=== PATIENT | male | born 1975 | race Caucasian/White ===

== ENCOUNTER 2021-08-10 15:00 | Emergency (ER) | payer BC ==
[2021-08-10] MEDS ORDERED: Acetaminophen 500 MG Tab PO ONE (15:46)
[2021-08-10] MEDS ORDERED: Ketorolac 60 MG/2 ML SDV IM ONE (15:46)
[2021-08-10] MEDS ORDERED: Codeine/guaiFENesin 10-100 MG/5 ML Syrup 5 ML Cup PO ONE (15:47)
--- NOTE | 2021-08-10 15:47 | PCM.EKG ---
#1 Interpretation EKG Date: 08/10/21 Time: 15:30 Rhythm: Other (sinus tach) Rate (Beats/Min): 104 ST-T: Normal
--- NOTE | 2021-08-10 15:54 | EDM.PDOC ---
ED HPI GENERAL MEDICAL PROBLEM - General Chief Complaint: Respiratory Problem Stated Complaint: COV POS/ CHEST PAIN AND SOB Time Seen by Provider: 08/10/21 15:18 Source of Information: Reports: Patient History Limitations: Reports: No Limitations - History of Present Illness INITIAL COMMENTS - FREE TEXT/NARRATIVE: HISTORY AND PHYSICAL: History of present illness: Patient is a 46-year-old male who presents emergency room today with concern of known COVID-19 diagnosis since yesterday who presents emergency room today with concern of cough and shortness of breath. Patient states that at times, he begins coughing so hard that he cannot catch his breath. Patient states that he is also struggling to get around his house and get up and down the stairs as he is so short of breath. Patient states he has not taken anything today for his symptoms. Patient states that he started having symptoms 4 days ago and tested positive for it yesterday at the walk-in clinic. Patient denies any health history or any other resuscitative symptom. Patient denies fever, chills, chest pain. Denies headache, neck stiff ness, change in vision, syncope, or near syncope. Denies nausea, vomiting, abdominal pain, diarrhea, constipation, or dysuria. Has not noted any blood in urine or stool. Patient has been eating and drinking appropriately. Review of systems: As per history of present illness and below otherwise all systems reviewed and negative. Past medical history: As per history of present illness and as reviewed below otherwise noncontributory. Surgical history: As per history of present illness and as reviewed below otherwise noncontributory. Social history: See social history for further information Family history: As per history of present illness and as reviewed below otherwise noncontributory. Physical exam: General: Patient is alert, oriented, and in no acute distress. Patient sitting comfortably on exam table. Patient is mildly tachycardic 107 on exam, otherwise vitally stable and reviewed by me. Patient is 94% on room air and breathing comfortably. HEENT: Atraumatic, normocephalic, pupils equal and reactive bilaterally, negative for conjunctival pallor or scleral icterus, mucous membranes moist, throat clear, neck supple, nontender, trachea midline. No drooling or trismus noted. No meningeal signs. No hot potato voice noted. Lungs: Patient does have a spasmatic dry cough on exam. Otherwise, clear to auscultation, breath sounds equal bilaterally, chest nontender. Patient speaking clearly without breathlessness, no wheezing or stridor, no accessory muscle use or respiratory distress. Heart: S1S2, regular rate and rhythm without overt murmur Abdomen: Soft, nondistended, nontender. Negative for masses or hepatosplenomegaly. Negative for costovertebral tenderness. Pelvis: Stable nontender. Genitourinary: Deferred. Rectal: Deferred. Skin: Intact, warm, dry. No lesions or rashes noted. Extremities: Atraumatic, negative for cords or calf pain. Neurovascular unremarkable. Neuro: Awake, alert, oriented. Cranial nerves II through XII unremarkable. Cerebellum unremarkable. Motor and sensory unremarkable throughout. Exam nonfocal. Medical Decision Making: Patient is an otherwise healthy 46-year-old male with known COVID-19 diagnosis since yesterday who presents emergency room today with concern of worsening cough and shortness of breath. Upon arrival to the ED, patient is mildly tachycardic 107's on exam, otherwise is 94% on room air and breathing comfortably on exam. He does have a spasmatic dry cough on exam, otherwise ex amination of the lungs is unremarkable and remainder of physical exam unremarkable. At this time, will obtain cardiac evaluation given shortness of breath, 1 view chest x-ray, and D-dimer and provide therapeutics and reassess patient. See Dr. Epperson's dictation for specific EKG interpretation. Otherwise, sinus tachycardia rhythm with a rate of 104 without STEMI. CBC does show thrombocytopenia with platelets of 86, likely secondary to COVID- 19 viral infection. Otherwise, mild derangements of CBC are unremarkable. CMP does show mild transaminitis with AST of 75 and ALT 66, presumed from possible COVID-19 viral infection, otherwise mild regions of CMP unremarkable. Troponin negative. COVID-19 is positive. Chest x-ray shows patchy bilateral pulmonary opacities, more pronounced on the left, compatible with COVID-19 infiltrate. Upon reevaluation of patient, he remains vitally stable and approximately 94 to 95% on room air and breathing comfortably. He does have improvement of his co ugh with therapeutics today in the emergency room. Given that patient is already showing moderate an infection of COVID-19 on his chest x-ray, BMI of 30.1, unvaccinated and male, patient does meet outpatient monoclonal antibody infusion requirements. This prescription form was filled out and faxed over. Strict return precautions thoroughly discussed with patient. Discussed importance for follow-up with a primary care provider following COVID-19 quarantine restrictions. Voices understanding and is agreeable to plan of care. Denies any further questions or concerns at this time. Diagnostics: EKG, CBC, CMP, lipase, troponin, D-dimer, 1 view chest x-ray, COVID Therapeutics: Nebulized lidocaine, Robitussin-AC, Toradol, Tylenol Prescription: Outpatient monoclonal ab infusion RX Impression: COVID-19 virus infection Plan: 1. Your COVID-19 screening is positive. That means you do have the coronavirus and are considered contagious. Your vital signs and oxygen saturation are well enough that you were able to monitor your symptoms at home. Continue to monitor for trouble breathing, new confusion or inability to arouse, bluish lips or face or any of the other symptoms we discussed -if this occurs please return to the emergency room.Continue to monitor your health at home for worsening symptoms so that you can be taken care of and treated quickly if needed. 2. Please self quarantine until 10 days have passed since your symptoms began AND you are fever free (<100.4 degrees fahrenheit) for 24 hours without the use of fever-reducing medications AND symptoms are improving. You should restrict activities outside of your home, except for getting medical care. Do not go to work, school, or public areas. Avoid using public transportation, ride-sharing, or taxis. Inform any persons that you have been in contact with since you started becoming symptomatic that you have tested positive; they should be made aware and take the appropriate steps as needed. 3. You may alternate Tylenol and ibuprofen as needed for pain and fever management. 4. The [facility] health department will be calling you and following up with you. The [facility] COVID 19 Hotline phone number , They are open Monday - Monday 7am - 7pm. Follow up with your primary care provider for re-evaluation and re-testing after quarantine and discuss when you should be seen. 6. For more specific guidelines regarding isolation/quarantine please visit this website. https://www.health[place]/sites/www/files/documents/Files/ELANA/coronavirus/Factsh eet_for_People_With_COVID-19.pdf Definitive disposition and diagnosis as appropriate pending reevaluation and review of above. Bilateral Chest Pain Score (Numeric/FACES): 8 - Related Data Allergies Allergy/AdvReac Type Severity Reaction Status Date / Time Penicillins Allergy Hives Verified 08/10/21 15:13 Home Meds: Home Meds Albuterol Sulfate [Albuterol Sulfate Hfa] 1 dose PO DAILY 08/10/21 [History] Benzonatate 100 mg PO DAILY 08/10/21 [History] Codeine Phosphate/Guaifenesin [Guaiatussin AC Liquid] 5 ml PO DAILY 08/10/21 [History] predniSONE [Prednisone] 20 mg PO DAILY 08/10/21 [History] Past Medical History - Infectious Disease History Infectious Disease History: Reports: Novel Coronavirus - Past Surgical History Other Musculoskeletal Surgeries/Procedures:: Tore bicep tendon in right arm. Head and neck surgery. Social & Family History - Tobacco Use Tobacco Use Status *Q: Never Tobacco User - Recreational Drug Use Recreational Drug Use: No ED ROS GENERAL - Review of Systems Review Of Systems: Comprehensive ROS is negative, except as noted in HPI. ED EXAM, GENERAL - Physical Exam Exam: See Below (see dictation) Course - Vital Signs Last Recorded V/S: Last Vital Signs Temp 98.9 F 08/10/21 16:54 Pulse 102 H 08/10/21 16:54 Resp 20 08/10/21 16:54 BP 111/71 08/10/21 16:54 Pulse Ox 92 L 08/10/21 16:54 - Orders/Labs/Meds Labs: Laboratory Tests 08/10/21 08/10/21 08/10/21 Range/Units 15:35 15:35 15:35 WBC 4.97 (4.0-11.0) K/uL RBC 4.73 (4.50-5.90) M/uL Hgb 14.0 (13.0-17.0) g/dL Hct 39.2 (38.0-50.0) % MCV 82.9 (80.0-98.0) fL MCH 29.6 (27.0-32.0) pg MCHC 35.7 (31.0-37.0) g/dL RDW Std Deviation 39.1 (28.0-62.0) fl RDW Coeff of Mason 13 (11.0-15.0) % Plt Count 86 L (150-400) K/uL MPV 9.00 (7.40-12.00) fL Neut % (Auto) 79.9 (48.0-80.0) % Lymph % (Auto) 15.9 L (16.0-40.0) % Day % (Auto) 4.2 (0.0-15.0) % Eos % (Auto) 0.0 (0.0-7.0) % Baso % (Auto) 0.0 (0.0-1.5) % Neut # (Auto) 4.0 (1.4-5.7) K/uL Lymph # (Auto) 0.8 (0.6-2.4) K/uL Day # (Auto) 0.2 (0.0-0.8) K/uL Eos # (Auto) 0.0 (0.0-0.7) K/uL Baso # (Auto) 0.0 (0.0-0.1) K/uL Nucleated RBC % 0.0 /100WBC Nucleated RBCs # 0 K/uL D-Dimer, Quantitative 0.35 (0.0-0.50) mg/L FEU Sodium 136 (136-148) mmol/L Potassium 3.7 (3.5-5.1) mmol/L Chloride 99 (98-107) mmol/L Carbon Dioxide 28.4 (21.0-32.0) mmol/L BUN 11 (7.0-18.0) mg/dL Creatinine 1.1 (0.8-1.3) mg/dL Est Cr Clr Drug Dosing 87.56 mL/min Estimated GFR (MDRD) > 60.0 ml/min Glucose 147 H (74-106) mg/dL Calcium 8.2 L (8.5-10.1) mg/dL Total Bilirubin 0.5 (0.2-1.0) mg/dL AST 75 H (15-37) IU/L ALT 66 H (14-63) IU/L Alkaline Phosphatase 68 (46-116) U/L Troponin I < 0.050 (0.000-0.056) ng/mL Total Protein 7.6 (6.4-8.2) g/dL Albumin 3.3 L (3.4-5.0) g/dL Globulin 4.3 H (2.6-4.0) g/dL Albumin/Globulin Ratio 0.8 L (0.9-1.6) Lipase 79 (73-393) U/L SARS-CoV-2 RNA (MARTÍNEZ) (NEGATIVE) 08/10/21 Range/Units 16:15 WBC (4.0-11.0) K/uL RBC (4.50-5.90) M/uL Hgb (13.0-17.0) g/dL Hct (38.0-50.0) % MCV (80.0-98.0) fL MCH (27.0-32.0) pg MCHC (31.0-37.0) g/dL RDW Std Deviation (28.0-62.0) fl RDW Coeff of Mason (11.0-15.0) % Plt Count (150-400) K/uL MPV (7.40-12.00) fL Neut % (Auto) (48.0-80.0) % Lymph % (Auto) (16.0-40.0) % Day % (Auto) (0.0-15.0) % Eos % (Auto) (0.0-7.0) % Baso % (Auto) (0.0-1.5) % Neut # (Auto) (1.4-5.7) K/uL Lymph # (Auto) (0.6-2.4) K/uL Day # (Auto) (0.0-0.8) K/uL Eos # (Auto) (0.0-0.7) K/uL Baso # (Auto) (0.0-0.1) K/uL Nucleated RBC % /100WBC Nucleated RBCs # K/uL D-Dimer, Quantitative (0.0-0.50) mg/L FEU Sodium (136-148) mmol/L Potassium (3.5-5.1) mmol/L Chloride (98-107) mmol/L Carbon Dioxide (21.0-32.0) mmol/L BUN (7.0-18.0) mg/dL Creatinine (0.8-1.3) mg/dL Est Cr Clr Drug Dosing mL/min Estimated GFR (MDRD) ml/min Glucose (74-106) mg/dL Calcium (8.5-10.1) mg/dL Total Bilirubin (0.2-1.0) mg/dL AST (15-37) IU/L ALT (14-63) IU/L Alkaline Phosphatase (46-116) U/L Troponin I (0.000-0.056) ng/mL Total Protein (6.4-8.2) g/dL Albumin (3.4-5.0) g/dL Globulin (2.6-4.0) g/dL Albumin/Globulin Ratio (0.9-1.6) Lipase (73-393) U/L SARS-CoV-2 RNA (MARTÍNEZ) POSITIVE H (NEGATIVE) Meds: Medications Discontinued Medications Generic Name Dose Route Start Last Admin Trade Name Azamq PRN Reason Stop Dose Admin Acetaminophen 1,000 mg 08/10/21 15:46 08/10/21 16:29 Acetaminophen 500 Mg Tab PO 08/10/21 15:47 1,000 mg ONETIME ONE Administration Guaifenesin/Codeine Phosphate 5 ml 08/10/21 15:47 08/10/21 16:29 Codeine/Guaifenesin 10-100 Mg/5 Ml Syrup 5 Ml Cup PO 08/10/21 15:48 5 ml ONETIME ONE Administration Ketorolac Tromethamine 60 mg 08/10/21 15:46 08/10/21 16:32 Ketorolac 60 Mg/2 Ml Sdv IM 08/10/21 15:47 60 mg ONETIME ONE Administration Lidocaine HCl 5 ml 08/10/21 15:46 08/10/21 16:29 Lidocaine 1% 5 Ml Sdv .XX 08/10/21 15:47 5 ml ONETIME ONE Administration Departure - Departure Time of Disposition: 21:23 Disposition: Home, Self-Care 01 Clinical Impression: COVID-19 virus infection - Discharge Information Instructions: COVID-19 Frequently Asked Questions, 10 Things You Can Do to Manage Your COVID-19 Symptoms at Home - [facility] (04/09/2021) Referrals: PCP,None [Primary Care Provider] - Forms: ED Department Discharge Additional Instructions: The following information is given to patients seen in the emergency department who are being discharged to home. This information is to outline your options for follow-up care. We provide all patients seen in our emergency department with a follow-up referral. The need for follow-up, as well as the timing and circumstances, are variable depending upon the specifics of your emergency department visit. If you don't have a primary care physician on staff, we will provide you with a referral. We always advise you to contact your personal physician following an emergency department visit to inform them of the circumstance of the visit and for follow-up with them and/or the need for any referrals to a consulting specialist. The emergency department will also refer you to a specialist when appropriate. This referral assures that you have the opportunity for follow-up care with a specialist. All of these measure are taken in an effort to provide you with optimal care, which includes your follow-up. Under all circumstances we always encourage you to contact your private physician who remains a resource for coordinating your care. When calling for follow-up care, please make the office aware that this follow-up is from your recent emergency room visit. If for any reason you are refused follow-up, please contact the [facility] Emergency Department at and asked to speak to the emergency department charge nurse. [facility] [address] [place] [address] [place] [address] 1. Your COVID-19 screening is positive. That means you do have the coronavirus and are considered contagious. Your vital signs and oxygen saturation are well enough that you were able to monitor your symptoms at home. Continue to monitor for trouble breathing, new confusion or inability to arouse, bluish lips or face or any of the other symptoms we discussed -if this occurs please return to the emergency room.Continue to monitor your health at home for worsening symptoms so that you can be taken care of and treated quickly if needed. 2. Please self quarantine until 10 days have passed since your symptoms began AND you are fever free (<100.4 degrees fahrenheit) for 24 hours without the use of fever-reducing medications AND symptoms are improving. You should restrict activities outside of your home, except for getting medical care. Do not go to work, school, or public areas. Avoid using public transportation, ride-sharing, or taxis. Inform any persons that you have been in contact with since you started becoming symptomatic that you have tested positive; they should be made aware and take the appropriate steps as needed. 3. You may alternate Tylenol and ibuprofen as needed for pain and fever management. 4. The [facility] department will be calling you and following up with you. The [facility] COVID 19 Hotline phone number , They are open Monday - Monday 7am - 7pm. Follow up with your primary care provider for re-evaluation and re-testing after quarantine and discuss when you should be seen. 6. For more specific guidelines regarding isolation/quarantine please visit this website. https://www.[place]/sites/www/files/documents/Files/ELANA/coronavirus/Factsh eet_for_People_With_COVID-19.pdf Sepsis Event Note (ED) - Evaluation Sepsis Screening Result: No Definite Risk - Focused Exam Vital Signs: Vital Signs Temp Pulse Resp BP Pulse Ox 08/10/21 16:54 98.9 F 102 H 20 111/71 92 L 08/10/21 15:16 99.7 F 107 H 16 118/73 91 L
[2021-08-10 16:06] LABS: BLOOD UREA NITROGEN,BUN 11 mg/dL (7.0-18.0); CARBON DIOXIDE,CO2 28.4 mmol/L (21.0-32.0); CHLORIDE,CL 99 mmol/L (98-107); GLUCOSE RANDOM 147 mg/dL (74-106); LIPASE 79 U/L (73-393); POTASSIUM,K 3.7 mmol/L (3.5-5.1); SODIUM,NA 136 mmol/L (136-148)
--- NOTE | 2021-08-10 16:28 | CR ---
INDICATION: Shortness of breath, cough positive TECHNIQUE: Portable upright AP view of the chest COMPARISON: None FINDINGS: Suboptimal inspiration. Patchy bilateral pulmonary opacities, more pronounced on the left. No appreciable pleural effusion or pneumothorax. Nonenlarged cardiac silhouette. No significant thoracic abnormality demonstrated. IMPRESSION: Patchy bilateral pulmonary opacities, more pronounced on the left, compatible with COVID infiltrates. Dictated by Tommy Witt MD @ 08/10/2021 4:27:45 PM (Electronically Signed)
== END 2021-08-10 17:12 | disposition home or self-care (01) ==
LOC: MW.ED 15:00
DX: U07.1 COVID-19 (principal); Z88.0 Allergy status to penicillin
CPT/HCPCS: 36415; 71045; 80053; 83690; 84484; 85025; 85379; 87635; 93005; 96372; 99285; A9270; J1885; U0002

== ENCOUNTER 2021-08-11 12:48 | Inpatient (IN) | payer BC ==
[2021-08-11] MEDS ORDERED: Albuterol/Ipratropium 3.0-0.5 MG/3 ML Neb Soln NEB ONE (13:26)
[2021-08-11] MEDS ORDERED: Sodium Chloride 0.9% 1,000 ML IV ONE (13:33)
--- NOTE | 2021-08-11 13:33 | EDM.PDOC ---
ED HPI GENERAL MEDICAL PROBLEM - General Chief Complaint: Respiratory Problem Stated Complaint: COVID LOW O2 Time Seen by Provider: 08/11/21 13:02 Source of Information: Reports: Patient History Limitations: Reports: No Limitations - History of Present Illness INITIAL COMMENTS - FREE TEXT/NARRATIVE: Patient is a 46-year-old male who presents today for worsening shortness of chrissie ath. Patient tested positive for Covid on Monday and states his symptoms started to get worse. Home with oximeter of 80%.When in the room with the patient's oxygen saturation 93 to 95%. Patient denies any fever chills cough he still tolerating p.o. but has been feeling tired and weak denies any leg swelling no other complaints. chest Pain Score (Numeric/FACES): 8 - Related Data Allergies Allergy/AdvReac Type Severity Reaction Status Date / Time Penicillins Allergy Hives Verified 08/11/21 13:07 Home Meds: Home Meds Albuterol Sulfate [Albuterol Sulfate Hfa] 1 dose PO DAILY 08/10/21 [History] Benzonatate 100 mg PO DAILY 08/10/21 [History] Codeine Phosphate/Guaifenesin [Guaiatussin AC Liquid] 5 ml PO DAILY 08/10/21 [History] predniSONE [Prednisone] 20 mg PO DAILY 08/10/21 [History] Past Medical History HEENT History: Reports: None Cardiovascular History: Reports: None Respiratory History: Reports: None Gastrointestinal History: Reports: None Genitourinary History: Reports: None Musculoskeletal History: Reports: None Neurological History: Reports: None Psychiatric History: Reports: None Endocrine/Metabolic History: Reports: None Hematologic History: Reports: None Immunologic History: Reports: None Oncologic (Cancer) History: Reports: None Dermatologic History: Reports: None - Infectious Disease History Infectious Disease History: Reports: Novel Coronavirus - Past Surgical History Head Surgeries/Procedures: Reports: None HEENT Surgical History: Reports: None Cardiovascular Surgical History: Reports: None Respiratory Surgical History: Reports: None GI Surgical History: Reports: None Male Surgical History: Reports: None Endocrine Surgical History: Reports: None Neurological Surgical History: Reports: None Musculoskeletal Surgical History: Reports: Other (See Below) Other Musculoskeletal Surgeries/Procedures:: Tore bicep tendon in right arm. Head and neck surgery. Oncologic Surgical History: Reports: None Dermatological Surgical History: Reports: None Social & Family History - Family History Family Medical History: No Pertinent Family History - Tobacco Use Tobacco Use Status *Q: Never Tobacco User Second Hand Smoke Exposure: No - Caffeine Use Caffeine Use: Reports: None - Recreational Drug Use Recreational Drug Use: No ED ROS GENERAL - Review of Systems Review Of Systems: See Below Constitutional: Reports: No Symptoms HEENT: Reports: No Symptoms Respiratory: Reports: Cough Cardiovascular: Reports: No Symptoms Endocrine: Reports: No Symptoms GI/Abdominal: Reports: No Symptoms : Reports: No Symptoms Musculoskeletal: Reports: No Symptoms Skin: Reports: No Symptoms Neurological: Reports: No Symptoms Psychiatric: Reports: No Symptoms Hematologic/Lymphatic: Reports: No Symptoms Immunologic: Reports: No Symptoms ED EXAM, GENERAL - Physical Exam Exam: See Below Exam Limited By: No Limitations General Appearance: Alert, WD/WN, No Apparent Distress Eye Exam: Bilateral Eye: EOMI, PERRL Head: Atraumatic, Normocephalic Neck: Normal Inspection, Supple, Non-Tender Respiratory/Chest: No Respiratory Distress, Lungs Clear, Normal Breath Sounds Cardiovascular: Normal Peripheral Pulses, Regular Rate, Rhythm GI/Abdominal: Normal Bowel Sounds, Soft, Non-Tender Extremities: Normal Inspection, Normal Range of Motion Neurological: Alert, Oriented, Normal Cognition, Normal Gait #1 Interpretation EKG Date: 08/11/21 Time: 16:37 Rhythm: Other (sinus tach) Rate (Beats/Min): 101 ST-T: Normal Course - Vital Signs Last Recorded V/S: Last Vital Signs Temp 100.3 F 08/11/21 13:08 Pulse 102 H 08/11/21 15:23 Resp 20 08/11/21 15:23 BP 139/83 08/11/21 15:23 Pulse Ox 91 L 08/11/21 15:23 - Orders/Labs/Meds Orders: Active Orders 24 hr Category Date Time Status Patient Status [ADT] Routine ADT 08/11/21 16:39 Active RT Aerosol Therapy [RC] ASDIRECTED Care 08/11/21 13:26 Active Codeine/Promethazine HCl [Phenergan with Codeine] Med 08/11/21 13:30 Active 5 ml PO Q6HR Remdesivir 200 mg Med 08/11/21 17:00 Active Sodium Chloride 0.9% [Normal Saline] 250 ml IV ONETIME Medication Orders Remdesivir 200 mg/ Sodium (Chloride) 250 mls @ 250 mls/hr IV ONETIME ONE Stop: 08/11/21 17:59 Promethazine HCl/Codeine (Codeine/Promethazine 10-6.25 Mg/5 Ml Syrup 5 Ml Ud Syringe) 5 ml PO Q6HR IAN Last Admin: 08/11/21 14:00 Dose: 5 ml Documented by: VANESSA Labs: Laboratory Tests 08/11/21 08/11/21 Range/Units 13:11 13:11 WBC 5.60 (4.0-11.0) K/uL RBC 4.48 L (4.50-5.90) M/uL Hgb 13.5 (13.0-17.0) g/dL Hct 37.6 L (38.0-50.0) % MCV 83.9 (80.0-98.0) fL MCH 30.1 (27.0-32.0) pg MCHC 35.9 (31.0-37.0) g/dL RDW Std Deviation 39.5 (28.0-62.0) fl RDW Coeff of Mason 13 (11.0-15.0) % Plt Count 105 L (150-400) K/uL MPV 8.90 (7.40-12.00) fL Neut % (Auto) 83.2 H (48.0-80.0) % Lymph % (Auto) 13.6 L (16.0-40.0) % [place] % (Auto) 3.2 (0.0-15.0) % Eos % (Auto) 0.0 (0.0-7.0) % Baso % (Auto) 0.0 (0.0-1.5) % Neut # (Auto) 4.7 (1.4-5.7) K/uL Lymph # (Auto) 0.8 (0.6-2.4) K/uL [place] # (Auto) 0.2 (0.0-0.8) K/uL Eos # (Auto) 0.0 (0.0-0.7) K/uL Baso # (Auto) 0.0 (0.0-0.1) K/uL Nucleated RBC % 0.0 /100WBC Nucleated RBCs # 0 K/uL Sodium 131 L (136-148) mmol/L Potassium 3.3 L (3.5-5.1) mmol/L Chloride 96 L (98-107) mmol/L Carbon Dioxide 27.0 (21.0-32.0) mmol/L BUN 15 (7.0-18.0) mg/dL Creatinine 1.4 H (0.8-1.3) mg/dL Est Cr Clr Drug Dosing 68.80 mL/min Estimated GFR (MDRD) 54.8 ml/min Glucose 141 H (74-106) mg/dL Calcium 8.3 L (8.5-10.1) mg/dL Total Bilirubin 0.5 (0.2-1.0) mg/dL AST 106 H (15-37) IU/L ALT 81 H (14-63) IU/L Alkaline Phosphatase 65 (46-116) U/L Troponin I < 0.050 (0.000-0.056) ng/mL Total Protein 7.2 (6.4-8.2) g/dL Albumin 3.0 L (3.4-5.0) g/dL Globulin 4.2 H (2.6-4.0) g/dL Albumin/Globulin Ratio 0.7 L (0.9-1.6) Meds: Medications Generic Name Dose Route Start Last Admin Trade Name Freq PRN Reason Stop Dose Admin Remdesivir 200 mg/ Sodium 250 mls @ 250 mls/hr 08/11/21 17:00 Chloride IV 08/11/21 17:59 ONETIME ONE Promethazine HCl/Codeine 5 ml 08/11/21 13:30 08/11/21 14:00 Codeine/Promethazine 10-6.25 Mg/5 Ml Syrup 5 Ml Ud Syringe PO 5 ml Q6HR IAN Administration Discontinued Medications Generic Name Dose Route Start Last Admin Trade Name Freq PRN Reason Stop Dose Admin Albuterol/Ipratropium 3 ml 08/11/21 13:26 08/11/21 14:00 Albuterol/Ipratropium 3.0-0.5 Mg/3 Ml Neb Soln NEB 08/11/21 13:27 3 ml ONETIME ONE Administration Dexamethasone 10 mg 08/11/21 16:20 08/11/21 16:34 Dexamethasone 10 Mg/Ml Sdv IVPUSH 08/11/21 16:21 10 mg ONETIME ONE Administration Sodium Chloride 1,000 mls @ 1,000 mls/hr 08/11/21 13:33 08/11/21 13:59 Normal Saline IV 08/11/21 14:32 1,000 mls/hr .Bolus ONE Administration Remdesivir 200 mg/ Sodium 250 mls @ 250 mls/hr 08/11/21 16:38 Chloride IV 08/11/21 16:39 ONETIME ONE - Re-Assessments/Exams Free Text/Narrative Re-Assessment/Exam: 08/11/21 16:39 And oxygen level room air dropped down to 83%. We placed him on 2 L to see if he can go home on home O2 still hung around 8990% we put him up to 4 L he is now at accountable 93-94%. Patient really wants to the infusion clinic was considering leaving. We had a extensive conversation with patient about that he would not qualify for the fusion clinically at the knee oxygen. He is now willing to stay we will start the patient on the days of year he was already receiving prednisone from the clinic. Departure - Departure Time of Disposition: 16:41 Disposition: Admitted As Inpatient 67 Condition: Good Clinical Impression: Hypoxia, COVID, Congestive heart failure - Discharge Information *PRESCRIPTION DRUG MONITORING PROGRAM REVIEWED*: Not Applicable *COPY OF PRESCRIPTION DRUG MONITORING REPORT IN PATIENT RACHEL: Not Applicable Referrals: PCP,None [Primary Care Provider] - Forms: ED Department Discharge Critical Care Note - Critical Care Note Total Time (mins): 45 Comments: Critical Care Procedure Note Authorized and Performed by: MD Name Total critical care time: Approximately 36 minutes Due to a high probability of clinically significant, life threatening deterioration, the patient required my highest level of preparedness to interven e emergently and I personally spent this critical care time directly and personally managing the patient. This critical care time included obtaining a history; examining the patient; pulse oximetry; ordering and review of studies; arranging urgent treatment with development of a management plan; evaluation of patient's response to treatment; frequent reassessment; and, discussions with other providers. This critical care time was performed to assess and manage the high probability of imminent, life-threatening deterioration that could result in multi-organ failure. It was exclusive of separately billable procedures and treating other patients and teaching time. Please see MDM section and the rest of the note for further information on patient assessment and treatment. Sepsis Event Note (ED) - Evaluation Sepsis Screening Result: No Definite Risk - Focused Exam Vital Signs: Vital Signs Temp Temp Pulse Resp BP Pulse Ox 08/11/21 15:23 102 H 20 139/83 91 L 08/11/21 13:08 100.3 F 08/11/21 13:04 99.1 F 103 H 18 134/82 88 L - My Orders Last 24 Hours: My Active Orders 08/11/21 13:26 RT Aerosol Therapy [RC] ASDIRECTED 08/11/21 13:30 Codeine/Promethazine HCl [Phenergan with Codeine] 5 ml PO Q6HR 08/11/21 16:39 Patient Status [ADT] Routine 08/11/21 17:00 Remdesivir 200 mg Sodium Chloride 0.9% [Normal Saline] 250 ml IV ONETIME - Assessment/Plan Last 24 Hours: My Active Orders 08/11/21 13:26 RT Aerosol Therapy [RC] ASDIRECTED 08/11/21 13:30 Codeine/Promethazine HCl [Phenergan with Codeine] 5 ml PO Q6HR 08/11/21 16:39 Patient Status [ADT] Routine 08/11/21 17:00 Remdesivir 200 mg Sodium Chloride 0.9% [Normal Saline] 250 ml IV ONETIME Plan: Patient is a 46-year-old male positive Covid a few days ago presents today for worsening shortness of breath. Patient while in room was satting 93% on room air and looks well patient may complains of his chronic cough which will treat cough provide fluids and reassess.
[2021-08-11 13:54] LABS: BLOOD UREA NITROGEN,BUN 15 mg/dL (7.0-18.0); CHLORIDE,CL 96 mmol/L (98-107); GLUCOSE RANDOM 141 mg/dL (74-106); POTASSIUM,K 3.3 mmol/L (3.5-5.1); SODIUM,NA 131 mmol/L (136-148)
[2021-08-11] MEDS: Codeine/Promethazine 10-6.25 MG/5 ML Syrup 5 ML UD Syringe PO SCH ×2 (14:00→18:53)
[2021-08-11] MEDS ORDERED: Dexamethasone 10 MG/ML SDV IVPUSH ONE (16:20)
[2021-08-11] MEDS ORDERED: REMDESIVIR 200 MG in Sodium Chloride 0.9% 250 ML IV ONE ×2 (16:38→17:00)
[2021-08-11] MEDS ORDERED: Potassium Chloride 20 MEQ Tab.ER PO ONE (18:56)
--- NOTE | 2021-08-11 19:44 | PCM.HP.2 ---
H&P History of Present Illness - General Date of Service: 08/11/21 Admit Problem/Dx: Admission Diagnosis/Problem Admission Diagnosis/Problem Hypoxia - History of Present Illness Initial Comments - Free Text/Narative: 46 yo male who presents with one week history of cough. PAtient denies any fevers, chills, chest pain, or shortness of breath. He was requiring 5 L NC to keep sats above 90% chest Pain Score (Numeric/FACES): 8 - Related Data Allergies/Adverse Reactions: Allergies Allergy/AdvReac Type Severity Reaction Status Date / Time Penicillins Allergy Hives Verified 08/11/21 13:07 Home Medications: Home Meds Albuterol Sulfate [Albuterol Sulfate Hfa] 1 dose PO DAILY 08/10/21 [History] Benzonatate 100 mg PO DAILY 08/10/21 [History] Codeine Phosphate/Guaifenesin [Guaiatussin AC Liquid] 5 ml PO DAILY 08/10/21 [History] predniSONE [Prednisone] 20 mg PO DAILY 08/10/21 [History] Past Medical History HEENT History: Reports: None Cardiovascular History: Reports: None Respiratory History: Reports: None Gastrointestinal History: Reports: None Genitourinary History: Reports: None Musculoskeletal History: Reports: None Neurological History: Reports: None Psychiatric History: Reports: None Endocrine/Metabolic History: Reports: None Hematologic History: Reports: None Immunologic History: Reports: None Oncologic (Cancer) History: Reports: None Dermatologic History: Reports: None - Infectious Disease History Infectious Disease History: Reports: Novel Coronavirus - Past Surgical History Head Surgeries/Procedures: Reports: None HEENT Surgical History: Reports: None Cardiovascular Surgical History: Reports: None Respiratory Surgical History: Reports: None GI Surgical History: Reports: None Male Surgical History: Reports: None Endocrine Surgical History: Reports: None Neurological Surgical History: Reports: None Musculoskeletal Surgical History: Reports: Other (See Below) Other Musculoskeletal Surgeries/Procedures:: Tore bicep tendon in right arm. Head and neck surgery. Oncologic Surgical History: Reports: None Dermatological Surgical History: Reports: None Social & Family History - Family History Family Medical History: No Pertinent Family History - Tobacco Use Tobacco Use Status *Q: Never Tobacco User Second Hand Smoke Exposure: No - Caffeine Use Caffeine Use: Reports: None - Recreational Drug Use Recreational Drug Use: No H&P Review of Systems - Review of Systems: Review Of Systems: Comprehensive ROS is negative, except as noted in HPI. Exam - Exam Exam: See Below - Vital Signs Vital Signs: Last Vital Signs Temp 36.4 C 08/11/21 18:35 Pulse 94 08/11/21 18:35 Resp 22 H 08/11/21 18:35 BP 111/57 L 08/11/21 18:35 Pulse Ox 90 L 08/11/21 18:35 Weight: 95.254 kg - Exam General: Alert, Oriented HEENT: Mucosa Moist & [place] Neck: Supple Lungs: Clear to Auscultation, Normal Respiratory Effort Cardiovascular: Regular Rate, Regular Rhythm GI/Abdominal Exam: Normal Bowel Sounds, Soft, Non-Tender Extremities: Non-Tender, No Pedal Edema Skin: Warm, Dry, Intact Neurological: No: Focal Deficit - Patient Data Lab Results Last 24 hrs: Laboratory Results - last 24 hr 08/11/21 08/11/21 Range/Units 13:11 13:11 WBC 5.60 (4.0-11.0) K/uL RBC 4.48 L (4.50-5.90) M/uL Hgb 13.5 (13.0-17.0) g/dL Hct 37.6 L (38.0-50.0) % MCV 83.9 (80.0-98.0) fL MCH 30.1 (27.0-32.0) pg MCHC 35.9 (31.0-37.0) g/dL RDW Std Deviation 39.5 (28.0-62.0) fl RDW Coeff of Mason 13 (11.0-15.0) % Plt Count 105 L (150-400) K/uL MPV 8.90 (7.40-12.00) fL Neut % (Auto) 83.2 H (48.0-80.0) % Lymph % (Auto) 13.6 L (16.0-40.0) % [place] % (Auto) 3.2 (0.0-15.0) % Eos % (Auto) 0.0 (0.0-7.0) % Baso % (Auto) 0.0 (0.0-1.5) % Neut # (Auto) 4.7 (1.4-5.7) K/uL Lymph # (Auto) 0.8 (0.6-2.4) K/uL [place] # (Auto) 0.2 (0.0-0.8) K/uL Eos # (Auto) 0.0 (0.0-0.7) K/uL Baso # (Auto) 0.0 (0.0-0.1) K/uL Nucleated RBC % 0.0 /100WBC Nucleated RBCs # 0 K/uL Sodium 131 L (136-148) mmol/L Potassium 3.3 L (3.5-5.1) mmol/L Chloride 96 L (98-107) mmol/L Carbon Dioxide 27.0 (21.0-32.0) mmol/L BUN 15 (7.0-18.0) mg/dL Creatinine 1.4 H (0.8-1.3) mg/dL Est Cr Clr Drug Dosing 68.80 mL/min Estimated GFR (MDRD) 54.8 ml/min Glucose 141 H (74-106) mg/dL Calcium 8.3 L (8.5-10.1) mg/dL Total Bilirubin 0.5 (0.2-1.0) mg/dL AST 106 H (15-37) IU/L ALT 81 H (14-63) IU/L Alkaline Phosphatase 65 (46-116) U/L Troponin I < 0.050 (0.000-0.056) ng/mL Total Protein 7.2 (6.4-8.2) g/dL Albumin 3.0 L (3.4-5.0) g/dL Globulin 4.2 H (2.6-4.0) g/dL Albumin/Globulin Ratio 0.7 L (0.9-1.6) Result Diagrams: 08/11/21 13:11 08/11/21 13:11 Sepsis Event Note - Evaluation Sepsis Screening Result: No Definite Risk - Focused Exam Vital Signs: Vital Signs Temp Temp Pulse Resp BP Pulse Ox 08/11/21 18:35 36.4 C 94 22 H 111/57 L 90 L 08/11/21 18:12 104 H 19 128/76 93 L 08/11/21 15:23 102 H 20 139/83 91 L 08/11/21 13:08 37.9 C 08/11/21 13:04 37.3 C 103 H 18 134/82 88 L - Problem List (1) COVID SNOMED Code(s): 324033790 ICD Code: U07.1 - COVID-19 Status: Acute Current Visit: Yes (2) Hypoxia SNOMED Code(s): 675683441 ICD Code: R09.02 - HYPOXEMIA Status: Acute Current Visit: Yes Problem List Initiated/Reviewed/Updated: Yes Orders Last 24hrs: Active Orders 24 hr Category Date Time Status Patient Status [ADT] Routine ADT 08/11/21 16:39 Active RT Post Treatment Assessment [RC] Click to Edit Care 08/11/21 18:59 Active RT Pre-Treatment Assessment [RC] Click to Edit Care 08/11/21 18:59 Active Albuterol/Ipratropium [Combivent Respimat] Med 08/11/21 18:59 Active 0 gm INH Q4H PRN Benzonatate [Tessalon Perles] Med 08/11/21 19:31 Ordered 100 mg PO Q6H PRN Codeine/Promethazine HCl [Phenergan with Codeine] Med 08/11/21 13:30 Active 5 ml PO Q6HR Enoxaparin [Lovenox] Med 08/11/21 20:00 Active 40 mg SUBCUT Q24H Melatonin Med 08/11/21 19:31 Ordered 6 mg PO BEDTIME PRN Remdesivir 100 mg Med 08/12/21 17:00 Active Sodium Chloride 0.9% [Normal Saline AdvBag] 100 ml IV Q24H dexAMETHasone Med 08/12/21 16:00 Active 6 mg PO Q24H Medication Orders Albuterol/Ipratropium (Albuterol/Ipratropium 4 Gm Inhalation [place]) 0 gm INH Q4H PRN PRN Reason: Dyspnea Benzonatate (Benzonatate 100 Mg Cap) 100 mg PO Q6H PRN PRN Reason: Cough Dexamethasone (Dexamethasone 4 Mg Tab) 6 mg PO Q24H IAN Enoxaparin Sodium (Enoxaparin 40 Mg/0.4 Ml Syringe) 40 mg SUBCUT Q24H IAN Remdesivir 100 mg/ Sodium (Chloride) 100 mls @ 100 mls/hr IV Q24H IAN Stop: 08/15/21 17:59 Melatonin (Melatonin 3 Mg Tab) 6 mg PO BEDTIME PRN PRN Reason: Insomnia Promethazine HCl/Codeine (Codeine/Promethazine 10-6.25 Mg/5 Ml Syrup 5 Ml Ud Syringe) 5 ml PO Q6HR IAN Last Admin: 08/11/21 18:53 Dose: 5 ml Documented by: Admin: 08/11/21 14:00 Dose: 5 ml Documented by: VANESSA Assessment/Plan Comment:: 46 yo male admitted for COVID-19 with hypoxia Hypoxia: on 5 L NC COVID: treating with remdesivir, dexamethasone Lovenox for dvt prophylaxis
[2021-08-11] MEDS: Enoxaparin 40 MG/0.4 ML Syringe SUBCUT SCH (19:53)
[2021-08-11] MEDS: Benzonatate 100 MG Cap PO PRN (20:44)
[2021-08-11] MEDS: Melatonin 3 MG Tab PO PRN (20:44)
[2021-08-12] MEDS: Codeine/Promethazine 10-6.25 MG/5 ML Syrup 5 ML UD Syringe PO SCH ×4 (00:23→17:34)
[2021-08-12] MEDS: Benzonatate 100 MG Cap PO PRN ×3 (03:56→16:15)
[2021-08-12] MEDS: Albuterol/Ipratropium 4 GM Inhalation Spray INH PRN ×3 (10:01→21:53)
[2021-08-12 11:51] LABS: BLOOD UREA NITROGEN,BUN 17 mg/dL (7.0-18.0); CARBON DIOXIDE,CO2 27.7 mmol/L (21.0-32.0); CHLORIDE,CL 100 mmol/L (98-107); GLUCOSE RANDOM 136 mg/dL (74-106); POTASSIUM,K 4.3 mmol/L (3.5-5.1); SODIUM,NA 137 mmol/L (136-148)
--- NOTE | 2021-08-12 14:18 | PCM.PN ---
- General Info Date of Service: 08/12/21 - Review of Systems Systems Review Comment:: feeling better, reports cough and shortness of breath - Patient Data Vitals - Most Recent: Last Vital Signs Temp 36.0 C L 08/12/21 12:00 Pulse 79 08/12/21 12:00 Resp 18 08/12/21 12:00 BP 112/71 08/12/21 12:00 Pulse Ox 92 L 08/12/21 12:00 Weight - Most Recent: 95.254 kg I&O - Last 24 Hours: Intake & Output 08/11/21 08/12/21 08/12/21 22:59 06:59 14:59 Intake Total 1550 Output Total 1000 Balance 550 Lab Results Last 24 Hours: Laboratory Results - last 24 hr 08/12/21 08/12/21 Range/Units 11:10 11:10 WBC 6.47 (4.0-11.0) K/uL RBC 4.77 (4.50-5.90) M/uL Hgb 14.2 (13.0-17.0) g/dL Hct 40.6 (38.0-50.0) % MCV 85.1 (80.0-98.0) fL MCH 29.8 (27.0-32.0) pg MCHC 35.0 (31.0-37.0) g/dL RDW Std Deviation 40.7 (28.0-62.0) fl RDW Coeff of Mason 13 (11.0-15.0) % Plt Count 130 L (150-400) K/uL MPV 8.90 (7.40-12.00) fL Neut % (Auto) 76.6 (48.0-80.0) % Lymph % (Auto) 17.2 (16.0-40.0) % [place] % (Auto) 6.2 (0.0-15.0) % Eos % (Auto) 0.0 (0.0-7.0) % Baso % (Auto) 0.0 (0.0-1.5) % Neut # (Auto) 5.0 (1.4-5.7) K/uL Lymph # (Auto) 1.1 (0.6-2.4) K/uL [place] # (Auto) 0.4 (0.0-0.8) K/uL Eos # (Auto) 0.0 (0.0-0.7) K/uL Baso # (Auto) 0.0 (0.0-0.1) K/uL Nucleated RBC % 0.0 /100WBC Nucleated RBCs # 0 K/uL Sodium 137 (136-148) mmol/L Potassium 4.3 (3.5-5.1) mmol/L Chloride 100 (98-107) mmol/L Carbon Dioxide 27.7 (21.0-32.0) mmol/L BUN 17 (7.0-18.0) mg/dL Creatinine 0.9 (0.8-1.3) mg/dL Est Cr Clr Drug Dosing 107.02 mL/min Estimated GFR (MDRD) > 60.0 ml/min Glucose 136 H (74-106) mg/dL Calcium 8.5 (8.5-10.1) mg/dL Total Bilirubin 0.5 (0.2-1.0) mg/dL AST 199 H (15-37) IU/L ALT 143 H (14-63) IU/L Alkaline Phosphatase 71 (46-116) U/L Total Protein 7.0 (6.4-8.2) g/dL Albumin 2.7 L (3.4-5.0) g/dL Globulin 4.3 H (2.6-4.0) g/dL Albumin/Globulin Ratio 0.6 L (0.9-1.6) Med Orders - Current: Current Medications Albuterol/Ipratropium (Albuterol/Ipratropium 4 Gm Inhalation [place]) 0 gm INH Q4H PRN PRN Reason: Dyspnea Last Admin: 08/12/21 10:01 Dose: 1 puff Documented by: Benzonatate (Benzonatate 100 Mg Cap) 100 mg PO Q6H PRN PRN Reason: Cough Last Admin: 08/12/21 10:01 Dose: 100 mg Documented by: Dexamethasone (Dexamethasone 4 Mg Tab) 6 mg PO Q24H IAN Enoxaparin Sodium (Enoxaparin 40 Mg/0.4 Ml Syringe) 40 mg SUBCUT Q24H IAN Last Admin: 08/11/21 19:53 Dose: 40 mg Documented by: Remdesivir 100 mg/ Sodium (Chloride) 100 mls @ 100 mls/hr IV Q24H IAN Stop: 08/15/21 17:59 Melatonin (Melatonin 3 Mg Tab) 6 mg PO BEDTIME PRN PRN Reason: Insomnia Last Admin: 08/11/21 20:44 Dose: 6 mg Documented by: Promethazine HCl/Codeine (Codeine/Promethazine 10-6.25 Mg/5 Ml Syrup 5 Ml Ud Syringe) 5 ml PO Q6HR [facility] Last Admin: 08/12/21 11:47 Dose: 5 ml Documented by: Discontinued Medications Albuterol/Ipratropium (Albuterol/Ipratropium 3.0-0.5 Mg/3 Ml Neb Soln) 3 ml NEB ONETIME ONE Stop: 08/11/21 13:27 Last Admin: 08/11/21 14:00 Dose: 3 ml Documented by: Dexamethasone (Dexamethasone 10 Mg/Ml Sdv) 10 mg IVPUSH ONETIME ONE Stop: 08/11/21 16:21 Last Admin: 08/11/21 16:34 Dose: 10 mg Documented by: Sodium Chloride (Normal Saline) 1,000 mls @ 1,000 mls/hr IV .Bolus ONE Stop: 08/11/21 14:32 Last Admin: 08/11/21 13:59 Dose: 1,000 mls/hr Documented by: Remdesivir 200 mg/ Sodium (Chloride) 250 mls @ 250 mls/hr IV ONETIME ONE Stop: 08/11/21 16:39 Last Admin: 08/11/21 21:19 Dose: Not Given Documented by: Remdesivir 200 mg/ Sodium (Chloride) 250 mls @ 250 mls/hr IV ONETIME ONE Stop: 08/11/21 17:59 Last Admin: 08/11/21 19:53 Dose: 250 mls/hr Documented by: Potassium Chloride (Potassium Chloride 20 Meq Tab.Er) 40 meq PO ONETIME ONE Stop: 08/11/21 18:57 Last Admin: 08/11/21 19:51 Dose: 40 meq Documented by: - Exam General: Alert, Oriented Lungs: Normal Respiratory Effort, Rhonchi GI/Abdominal Exam: Soft, Non-Tender Extremities: Non-Tender, No Pedal Edema Skin: Warm, Dry, Intact Neurological: No New Focal Deficit - Patient Data Lab Results Last 24 hrs: Laboratory Results - last 24 hr 08/12/21 08/12/21 Range/Units 11:10 11:10 WBC 6.47 (4.0-11.0) K/uL RBC 4.77 (4.50-5.90) M/uL Hgb 14.2 (13.0-17.0) g/dL Hct 40.6 (38.0-50.0) % MCV 85.1 (80.0-98.0) fL MCH 29.8 (27.0-32.0) pg MCHC 35.0 (31.0-37.0) g/dL RDW Std Deviation 40.7 (28.0-62.0) fl RDW Coeff of Mason 13 (11.0-15.0) % Plt Count 130 L (150-400) K/uL MPV 8.90 (7.40-12.00) fL Neut % (Auto) 76.6 (48.0-80.0) % Lymph % (Auto) 17.2 (16.0-40.0) % [place] % (Auto) 6.2 (0.0-15.0) % Eos % (Auto) 0.0 (0.0-7.0) % Baso % (Auto) 0.0 (0.0-1.5) % Neut # (Auto) 5.0 (1.4-5.7) K/uL Lymph # (Auto) 1.1 (0.6-2.4) K/uL [place] # (Auto) 0.4 (0.0-0.8) K/uL Eos # (Auto) 0.0 (0.0-0.7) K/uL Baso # (Auto) 0.0 (0.0-0.1) K/uL Nucleated RBC % 0.0 /100WBC Nucleated RBCs # 0 K/uL Sodium 137 (136-148) mmol/L Potassium 4.3 (3.5-5.1) mmol/L Chloride 100 (98-107) mmol/L Carbon Dioxide 27.7 (21.0-32.0) mmol/L BUN 17 (7.0-18.0) mg/dL Creatinine 0.9 (0.8-1.3) mg/dL Est Cr Clr Drug Dosing 107.02 mL/min Estimated GFR (MDRD) > 60.0 ml/min Glucose 136 H (74-106) mg/dL Calcium 8.5 (8.5-10.1) mg/dL Total Bilirubin 0.5 (0.2-1.0) mg/dL AST 199 H (15-37) IU/L ALT 143 H (14-63) IU/L Alkaline Phosphatase 71 (46-116) U/L Total Protein 7.0 (6.4-8.2) g/dL Albumin 2.7 L (3.4-5.0) g/dL Globulin 4.3 H (2.6-4.0) g/dL Albumin/Globulin Ratio 0.6 L (0.9-1.6) Result Diagrams: 08/12/21 11:10 08/12/21 11:10 Sepsis Event Note - Evaluation Sepsis Screening Result: No Definite Risk - Focused Exam Vital Signs: Vital Signs Temp Pulse Resp BP Pulse Ox 08/12/21 12:00 36.0 C L 79 18 112/71 92 L 08/12/21 08:34 36.6 C 84 22 H 106/60 92 L 08/12/21 06:24 93 L 08/12/21 06:20 95 08/12/21 03:54 36.2 C 77 22 H 107/57 L 92 L - Problem List & Annotations (1) COVID SNOMED Code(s): 269487290 Code(s): U07.1 - COVID-19 Status: Acute Current Visit: Yes (2) Hypoxia SNOMED Code(s): 429714121 Code(s): R09.02 - HYPOXEMIA Status: Acute Current Visit: Yes - Problem List Review Problem List Initiated/Reviewed/Updated: Yes - My Orders Last 24 Hours: My Active Orders 08/11/21 18:59 RT Post Treatment Assessment [RC] Click to Edit RT Pre-Treatment Assessment [RC] Click to Edit Albuterol/Ipratropium [Combivent Respimat] 0 gm INH Q4H PRN 08/11/21 19:31 Benzonatate [Tessalon Perles] 100 mg PO Q6H PRN Melatonin 6 mg PO BEDTIME PRN 08/11/21 20:00 Enoxaparin [Lovenox] 40 mg SUBCUT Q24H 08/12/21 Breakfast Regular Diet [DIET] 08/12/21 16:00 dexAMETHasone 6 mg PO Q24H 08/12/21 17:00 Remdesivir 100 mg Sodium Chloride 0.9% [Normal Saline AdvBag] 100 ml IV Q24H 08/13/21 05:11 CBC WITH AUTO DIFF [HEME] AM COMPREHENSIVE METABOLIC PN,CMP [CHEM] AM 08/14/21 05:11 CBC WITH AUTO DIFF [HEME] AM COMPREHENSIVE METABOLIC PN,CMP [CHEM] AM 08/15/21 05:11 CBC WITH AUTO DIFF [HEME] AM COMPREHENSIVE METABOLIC PN,CMP [CHEM] AM 08/16/21 05:11 CBC WITH AUTO DIFF [HEME] AM COMPREHENSIVE METABOLIC PN,CMP [CHEM] AM 08/17/21 05:11 CBC WITH AUTO DIFF [HEME] AM COMPREHENSIVE METABOLIC PN,CMP [CHEM] AM - Plan Plan:: 46 yo male admitted for COVID-19 with hypoxia Hypoxia: on 5 L NC COVID: continue remdesivir, and dexamethasone Lovenox for dvt prophylaxis
[2021-08-12] MEDS: Dexamethasone 4 MG Tab PO SCH (16:15)
[2021-08-12] MEDS: REMDESIVIR 100 MG in Sodium Chloride 0.9% 100 ML IV SCH (16:16)
[2021-08-12] MEDS: Enoxaparin 40 MG/0.4 ML Syringe SUBCUT SCH (21:52)
[2021-08-13] MEDS: Codeine/Promethazine 10-6.25 MG/5 ML Syrup 5 ML UD Syringe PO SCH ×5 (00:39→23:22)
[2021-08-13] MEDS: Melatonin 3 MG Tab PO PRN (00:39)
[2021-08-13] MEDS: Albuterol/Ipratropium 4 GM Inhalation Spray INH PRN ×2 (04:28→17:14)
[2021-08-13] MEDS: Benzonatate 100 MG Cap PO PRN (04:28)
[2021-08-13 07:10] LABS: BLOOD UREA NITROGEN,BUN 19 mg/dL (7.0-18.0); CARBON DIOXIDE,CO2 28.4 mmol/L (21.0-32.0); CHLORIDE,CL 99 mmol/L (98-107); GLUCOSE RANDOM 151 mg/dL (74-106); POTASSIUM,K 4.1 mmol/L (3.5-5.1); SODIUM,NA 136 mmol/L (136-148)
--- NOTE | 2021-08-13 13:52 | PCM.PN ---
- General Info Date of Service: 08/13/21 - Patient Data Vitals - Most Recent: Last Vital Signs Temp 36.0 C L 08/13/21 11:13 Pulse 69 08/13/21 11:13 Resp 18 08/13/21 11:13 BP 105/68 08/13/21 11:13 Pulse Ox 93 L 08/13/21 11:13 Weight - Most Recent: 95.254 kg I&O - Last 24 Hours: Intake & Output 08/12/21 08/13/21 08/13/21 22:59 06:59 14:59 Intake Total 2800 1450 Output Total 700 1200 Balance 2100 250 Lab Results Last 24 Hours: Laboratory Results - last 24 hr 08/13/21 08/13/21 Range/Units 05:58 05:58 WBC 6.12 (4.0-11.0) K/uL RBC 4.72 (4.50-5.90) M/uL Hgb 14.0 (13.0-17.0) g/dL Hct 40.1 (38.0-50.0) % MCV 85.0 (80.0-98.0) fL MCH 29.7 (27.0-32.0) pg MCHC 34.9 (31.0-37.0) g/dL RDW Std Deviation 40.0 (28.0-62.0) fl RDW Coeff of Mason 13 (11.0-15.0) % Plt Count 169 (150-400) K/uL MPV 9.00 (7.40-12.00) fL Neut % (Auto) 79.4 (48.0-80.0) % Lymph % (Auto) 13.4 L (16.0-40.0) % [place] % (Auto) 7.2 (0.0-15.0) % Eos % (Auto) 0.0 (0.0-7.0) % Baso % (Auto) 0.0 (0.0-1.5) % Neut # (Auto) 4.9 (1.4-5.7) K/uL Lymph # (Auto) 0.8 (0.6-2.4) K/uL [place] # (Auto) 0.4 (0.0-0.8) K/uL Eos # (Auto) 0.0 (0.0-0.7) K/uL Baso # (Auto) 0.0 (0.0-0.1) K/uL Nucleated RBC % 0.0 /100WBC Nucleated RBCs # 0 K/uL Sodium 136 (136-148) mmol/L Potassium 4.1 (3.5-5.1) mmol/L Chloride 99 (98-107) mmol/L Carbon Dioxide 28.4 (21.0-32.0) mmol/L BUN 19 H (7.0-18.0) mg/dL Creatinine 0.8 (0.8-1.3) mg/dL Est Cr Clr Drug Dosing 120.40 mL/min Estimated GFR (MDRD) > 60.0 ml/min Glucose 151 H (74-106) mg/dL Calcium 8.4 L (8.5-10.1) mg/dL Total Bilirubin 0.6 (0.2-1.0) mg/dL AST 169 H (15-37) IU/L ALT 160 H (14-63) IU/L Alkaline Phosphatase 76 (46-116) U/L Total Protein 7.0 (6.4-8.2) g/dL Albumin 2.7 L (3.4-5.0) g/dL Globulin 4.3 H (2.6-4.0) g/dL Albumin/Globulin Ratio 0.6 L (0.9-1.6) Med Orders - Current: Current Medications Albuterol/Ipratropium (Albuterol/Ipratropium 4 Gm Inhalation [place]) 0 gm INH Q4H PRN PRN Reason: Dyspnea Last Admin: 08/13/21 04:28 Dose: 1 puff Documented by: Benzonatate (Benzonatate 100 Mg Cap) 100 mg PO Q6H PRN PRN Reason: Cough Last Admin: 08/13/21 04:28 Dose: 100 mg Documented by: Dexamethasone (Dexamethasone 4 Mg Tab) 6 mg PO Q24H IAN Last Admin: 08/12/21 16:15 Dose: 6 mg Documented by: Enoxaparin Sodium (Enoxaparin 40 Mg/0.4 Ml Syringe) 40 mg SUBCUT Q24H IAN Last Admin: 08/12/21 21:52 Dose: 40 mg Documented by: Remdesivir 100 mg/ Sodium (Chloride) 100 mls @ 100 mls/hr IV Q24H IAN Stop: 11/21/21 17:59 Last Admin: 08/12/21 16:16 Dose: 100 mls/hr Documented by: Melatonin (Melatonin 3 Mg Tab) 6 mg PO BEDTIME PRN PRN Reason: Insomnia Last Admin: 08/13/21 00:39 Dose: 6 mg Documented by: Promethazine HCl/Codeine (Codeine/Promethazine 10-6.25 Mg/5 Ml Syrup 5 Ml Ud Syr [email or web address]) 5 ml PO Q6HR [facility] Last Admin: 08/13/21 11:16 Dose: 5 ml Documented by: Discontinued Medications Albuterol/Ipratropium (Albuterol/Ipratropium 3.0-0.5 Mg/3 Ml Neb Soln) 3 ml NEB ONETIME ONE Stop: 08/11/21 13:27 Last Admin: 08/11/21 14:00 Dose: 3 ml Documented by: Dexamethasone (Dexamethasone 10 Mg/Ml Sdv) 10 mg IVPUSH ONETIME ONE Stop: 08/11/21 16:21 Last Admin: 08/11/21 16:34 Dose: 10 mg Documented by: Sodium Chloride (Normal Saline) 1,000 mls @ 1,000 mls/hr IV .Bolus ONE Stop: 08/11/21 14:32 Last Admin: 08/11/21 13:59 Dose: 1,000 mls/hr Documented by: Remdesivir 200 mg/ Sodium (Chloride) 250 mls @ 250 mls/hr IV ONETIME ONE Stop: 08/11/21 16:39 Last Admin: 08/11/21 21:19 Dose: Not Given Documented by: Remdesivir 200 mg/ Sodium (Chloride) 250 mls @ 250 mls/hr IV ONETIME ONE Stop: 08/11/21 17:59 Last Admin: 08/11/21 19:53 Dose: 250 mls/hr Documented by: Potassium Chloride (Potassium Chloride 20 Meq Tab.Er) 40 meq PO ONETIME ONE Stop: 08/11/21 18:57 Last Admin: 08/11/21 19:51 Dose: 40 meq Documented by: - Exam General: Alert, Oriented Lungs: Normal Respiratory Effort, Rhonchi Cardiovascular: Regular Rate, Regular Rhythm GI/Abdominal Exam: Normal Bowel Sounds, Soft, Non-Tender Extremities: Non-Tender, No Pedal Edema Skin: Warm, Dry, Intact Neurological: No New Focal Deficit - Patient Data Lab Results Last 24 hrs: Laboratory Results - last 24 hr 08/13/21 08/13/21 Range/Units 05:58 05:58 WBC 6.12 (4.0-11.0) K/uL RBC 4.72 (4.50-5.90) M/uL Hgb 14.0 (13.0-17.0) g/dL Hct 40.1 (38.0-50.0) % MCV 85.0 (80.0-98.0) fL MCH 29.7 (27.0-32.0) pg MCHC 34.9 (31.0-37.0) g/dL RDW Std Deviation 40.0 (28.0-62.0) fl RDW Coeff of Mason 13 (11.0-15.0) % Plt Count 169 (150-400) K/uL MPV 9.00 (7.40-12.00) fL Neut % (Auto) 79.4 (48.0-80.0) % Lymph % (Auto) 13.4 L (16.0-40.0) % [place] % (Auto) 7.2 (0.0-15.0) % Eos % (Auto) 0.0 (0.0-7.0) % Baso % (Auto) 0.0 (0.0-1.5) % Neut # (Auto) 4.9 (1.4-5.7) K/uL Lymph # (Auto) 0.8 (0.6-2.4) K/uL [place] # (Auto) 0.4 (0.0-0.8) K/uL Eos # (Auto) 0.0 (0.0-0.7) K/uL Baso # (Auto) 0.0 (0.0-0.1) K/uL Nucleated RBC % 0.0 /100WBC Nucleated RBCs # 0 K/uL Sodium 136 (136-148) mmol/L Potassium 4.1 (3.5-5.1) mmol/L Chloride 99 (98-107) mmol/L Carbon Dioxide 28.4 (21.0-32.0) mmol/L BUN 19 H (7.0-18.0) mg/dL Creatinine 0.8 (0.8-1.3) mg/dL Est Cr Clr Drug Dosing 120.40 mL/min Estimated GFR (MDRD) > 60.0 ml/min Glucose 151 H (74-106) mg/dL Calcium 8.4 L (8.5-10.1) mg/dL Total Bilirubin 0.6 (0.2-1.0) mg/dL AST 169 H (15-37) IU/L ALT 160 H (14-63) IU/L Alkaline Phosphatase 76 (46-116) U/L Total Protein 7.0 (6.4-8.2) g/dL Albumin 2.7 L (3.4-5.0) g/dL Globulin 4.3 H (2.6-4.0) g/dL Albumin/Globulin Ratio 0.6 L (0.9-1.6) Result Diagrams: 08/13/21 05:58 08/13/21 05:58 Sepsis Event Note - Evaluation Sepsis Screening Result: No Definite Risk - Focused Exam Vital Signs: Vital Signs Temp Pulse Resp BP Pulse Ox 08/13/21 11:13 36.0 C L 69 18 105/68 93 L 08/13/21 09:00 36.2 C 78 17 105/69 93 L 08/13/21 04:30 35.9 C L 73 18 109/69 93 L - Problem List & Annotations (1) COVID SNOMED Code(s): 970847365 Code(s): U07.1 - COVID-19 Status: Acute Current Visit: Yes (2) Hypoxia SNOMED Code(s): 737469002 Code(s): R09.02 - HYPOXEMIA Status: Acute Current Visit: Yes - Problem List Review Problem List Initiated/Reviewed/Updated: Yes - My Orders Last 24 Hours: My Active Orders 08/12/21 16:00 dexAMETHasone 6 mg PO Q24H 08/12/21 17:00 Remdesivir 100 mg Sodium Chloride 0.9% [Normal Saline AdvBag] 100 ml IV Q24H 08/14/21 05:11 CBC WITH AUTO DIFF [HEME] AM COMPREHENSIVE METABOLIC PN,CMP [CHEM] AM 08/15/21 05:11 CBC WITH AUTO DIFF [HEME] AM COMPREHENSIVE METABOLIC PN,CMP [CHEM] AM 08/16/21 05:11 CBC WITH AUTO DIFF [HEME] AM COMPREHENSIVE METABOLIC PN,CMP [CHEM] AM 08/17/21 05:11 CBC WITH AUTO DIFF [HEME] AM COMPREHENSIVE METABOLIC PN,CMP [CHEM] AM - Plan Plan:: 46 yo male admitted for COVID-19 with hypoxia Hypoxia: on 6 L NC COVID: continue remdesivir, and dexamethasone Lovenox for dvt prophylaxis
[2021-08-13] MEDS: Dexamethasone 4 MG Tab PO SCH (15:35)
[2021-08-13] MEDS: REMDESIVIR 100 MG in Sodium Chloride 0.9% 100 ML IV SCH (16:12)
[2021-08-13] MEDS: Enoxaparin 40 MG/0.4 ML Syringe SUBCUT SCH (19:54)
[2021-08-14] MEDS: Codeine/Promethazine 10-6.25 MG/5 ML Syrup 5 ML UD Syringe PO SCH ×3 (07:13→18:08)
[2021-08-14 08:17] LABS: BLOOD UREA NITROGEN,BUN 22 mg/dL (7.0-18.0); CARBON DIOXIDE,CO2 29.4 mmol/L (21.0-32.0); CHLORIDE,CL 100 mmol/L (98-107); GLUCOSE RANDOM 136 mg/dL (74-106); POTASSIUM,K 4.1 mmol/L (3.5-5.1); SODIUM,NA 136 mmol/L (136-148)
[2021-08-14] MEDS: Albuterol/Ipratropium 4 GM Inhalation Spray INH PRN ×2 (10:08→19:49)
[2021-08-14] MEDS: Dexamethasone 4 MG Tab PO SCH (15:40)
--- NOTE | 2021-08-14 15:58 | PCM.PN ---
- General Info Date of Service: 08/14/21 - Review of Systems Systems Review Comment:: shortness of breath improving, - Patient Data Vitals - Most Recent: Last Vital Signs Temp 36.2 C 08/14/21 12:05 Pulse 65 08/14/21 12:05 Resp 19 08/14/21 12:05 BP 121/79 08/14/21 12:05 Pulse Ox 91 L 08/14/21 12:05 Weight - Most Recent: 95.254 kg I&O - Last 24 Hours: Intake & Output 08/14/21 08/14/21 08/14/21 06:59 14:59 22:59 Intake Total 1950 Output Total 700 Balance 1250 Lab Results Last 24 Hours: Laboratory Results - last 24 hr 08/14/21 08/14/21 Range/Units 07:14 07:14 WBC 7.71 (4.0-11.0) K/uL RBC 4.84 (4.50-5.90) M/uL Hgb 14.1 (13.0-17.0) g/dL Hct 41.3 (38.0-50.0) % MCV 85.3 (80.0-98.0) fL MCH 29.1 (27.0-32.0) pg MCHC 34.1 (31.0-37.0) g/dL RDW Std Deviation 39.7 (28.0-62.0) fl RDW Coeff of Mason 13 (11.0-15.0) % Plt Count 213 (150-400) K/uL MPV 9.00 (7.40-12.00) fL Neut % (Auto) 83.1 H (48.0-80.0) % Lymph % (Auto) 9.3 L (16.0-40.0) % [place] % (Auto) 7.5 (0.0-15.0) % Eos % (Auto) 0.0 (0.0-7.0) % Baso % (Auto) 0.1 (0.0-1.5) % Neut # (Auto) 6.4 H (1.4-5.7) K/uL Lymph # (Auto) 0.7 (0.6-2.4) K/uL [place] # (Auto) 0.6 (0.0-0.8) K/uL Eos # (Auto) 0.0 (0.0-0.7) K/uL Baso # (Auto) 0.0 (0.0-0.1) K/uL Nucleated RBC % 0.0 /100WBC Nucleated RBCs # 0 K/uL Sodium 136 (136-148) mmol/L Potassium 4.1 (3.5-5.1) mmol/L Chloride 100 (98-107) mmol/L Carbon Dioxide 29.4 (21.0-32.0) mmol/L BUN 22 H (7.0-18.0) mg/dL Creatinine 0.8 (0.8-1.3) mg/dL Est Cr Clr Drug Dosing 120.40 mL/min Estimated GFR (MDRD) > 60.0 ml/min Glucose 136 H (74-106) mg/dL Calcium 8.0 L (8.5-10.1) mg/dL Total Bilirubin 0.8 (0.2-1.0) mg/dL AST 99 H (15-37) IU/L ALT 143 H (14-63) IU/L Alkaline Phosphatase 91 (46-116) U/L Total Protein 7.0 (6.4-8.2) g/dL Albumin 2.6 L (3.4-5.0) g/dL Globulin 4.4 H (2.6-4.0) g/dL Albumin/Globulin Ratio 0.6 L (0.9-1.6) Med Orders - Current: Current Medications Albuterol/Ipratropium (Albuterol/Ipratropium 4 Gm Inhalation [place]) 0 gm INH Q4H PRN PRN Reason: Dyspnea Last Admin: 08/14/21 10:08 Dose: 1 puff Documented by: Benzonatate (Benzonatate 100 Mg Cap) 100 mg PO Q6H PRN PRN Reason: Cough Last Admin: 08/13/21 04:28 Dose: 100 mg Documented by: Dexamethasone (Dexamethasone 4 Mg Tab) 6 mg PO Q24H IAN Last Admin: 08/14/21 15:40 Dose: 6 mg Documented by: Enoxaparin Sodium (Enoxaparin 40 Mg/0.4 Ml Syringe) 40 mg SUBCUT Q24H IAN Last Admin: 08/13/21 19:54 Dose: 40 mg Documented by: Remdesivir 100 mg/ Sodium (Chloride) 100 mls @ 100 mls/hr IV Q24H IAN Stop: 08/15/21 17:59 Last Admin: 08/13/21 16:12 Dose: 100 mls/hr Documented by: Melatonin (Melatonin 3 Mg Tab) 6 mg PO BEDTIME PRN PRN Reason: Insomnia Last Admin: 08/13/21 00:39 Dose: 6 mg Documented by: Promethazine HCl/Codeine (Codeine/Promethazine 10-6.25 Mg/5 Ml Syrup 5 Ml Ud Syringe) 5 ml PO Q6HR IAN Last Admin: 08/14/21 12:10 Dose: Not Given Documented by: Discontinued Medications Albuterol/Ipratropium (Albuterol/Ipratropium 3.0-0.5 Mg/3 Ml Neb Soln) 3 ml NEB ONETIME ONE Stop: 08/11/21 13:27 Last Admin: 08/11/21 14:00 Dose: 3 ml Documented by: Dexamethasone (Dexamethasone 10 Mg/Ml Sdv) 10 mg IVPUSH ONETIME ONE Stop: 08/11/21 16:21 Last Admin: 08/11/21 16:34 Dose: 10 mg Documented by: Sodium Chloride (Normal Saline) 1,000 mls @ 1,000 mls/hr IV .Bolus ONE Stop: 08/11/21 14:32 Last Admin: 08/11/21 13:59 Dose: 1,000 mls/hr Documented by: Remdesivir 200 mg/ Sodium (Chloride) 250 mls @ 250 mls/hr IV ONETIME ONE Stop: 08/11/21 16:39 Last Admin: 08/11/21 21:19 Dose: Not Given Documented by: Remdesivir 200 mg/ Sodium (Chloride) 250 mls @ 250 mls/hr IV ONETIME ONE Stop: 08/11/21 17:59 Last Admin: 08/11/21 19:53 Dose: 250 mls/hr Documented by: Potassium Chloride (Potassium Chloride 20 Meq Tab.Er) 40 meq PO ONETIME ONE Stop: 08/11/21 18:57 Last Admin: 08/11/21 19:51 Dose: 40 meq Documented by: - Exam General: Alert, Oriented Neck: Supple Lungs: Clear to Auscultation, Normal Respiratory Effort Cardiovascular: Regular Rate, Regular Rhythm GI/Abdominal Exam: Soft, Non-Tender Extremities: Non-Tender, No Pedal Edema Skin: Warm, Dry, Intact Neurological: No New Focal Deficit - Patient Data Lab Results Last 24 hrs: Laboratory Results - last 24 hr 08/14/21 08/14/21 Range/Units 07:14 07:14 WBC 7.71 (4.0-11.0) K/uL RBC 4.84 (4.50-5.90) M/uL Hgb 14.1 (13.0-17.0) g/dL Hct 41.3 (38.0-50.0) % MCV 85.3 (80.0-98.0) fL MCH 29.1 (27.0-32.0) pg MCHC 34.1 (31.0-37.0) g/dL RDW Std Deviation 39.7 (28.0-62.0) fl RDW Coeff of Mason 13 (11.0-15.0) % Plt Count 213 (150-400) K/uL MPV 9.00 (7.40-12.00) fL Neut % (Auto) 83.1 H (48.0-80.0) % Lymph % (Auto) 9.3 L (16.0-40.0) % [place] % (Auto) 7.5 (0.0-15.0) % Eos % (Auto) 0.0 (0.0-7.0) % Baso % (Auto) 0.1 (0.0-1.5) % Neut # (Auto) 6.4 H (1.4-5.7) K/uL Lymph # (Auto) 0.7 (0.6-2.4) K/uL [place] # (Auto) 0.6 (0.0-0.8) K/uL Eos # (Auto) 0.0 (0.0-0.7) K/uL Baso # (Auto) 0.0 (0.0-0.1) K/uL Nucleated RBC % 0.0 /100WBC Nucleated RBCs # 0 K/uL Sodium 136 (136-148) mmol/L Potassium 4.1 (3.5-5.1) mmol/L Chloride 100 (98-107) mmol/L Carbon Dioxide 29.4 (21.0-32.0) mmol/L BUN 22 H (7.0-18.0) mg/dL Creatinine 0.8 (0.8-1.3) mg/dL Est Cr Clr Drug Dosing 120.40 mL/min Estimated GFR (MDRD) > 60.0 ml/min Glucose 136 H (74-106) mg/dL Calcium 8.0 L (8.5-10.1) mg/dL Total Bilirubin 0.8 (0.2-1.0) mg/dL AST 99 H (15-37) IU/L ALT 143 H (14-63) IU/L Alkaline Phosphatase 91 (46-116) U/L Total Protein 7.0 (6.4-8.2) g/dL Albumin 2.6 L (3.4-5.0) g/dL Globulin 4.4 H (2.6-4.0) g/dL Albumin/Globulin Ratio 0.6 L (0.9-1.6) Result Diagrams: 08/14/21 07:14 08/14/21 07:14 Sepsis Event Note - Evaluation Sepsis Screening Result: No Definite Risk - Focused Exam Vital Signs: Vital Signs Temp Pulse Resp BP Pulse Ox 08/14/21 12:05 36.2 C 65 19 121/79 91 L 08/14/21 09:11 36.0 C L 67 17 100/58 L 92 L - Problem List & Annotations (1) COVID SNOMED Code(s): 945632507 Code(s): U07.1 - COVID-19 Status: Acute Current Visit: Yes (2) Hypoxia SNOMED Code(s): 758158665 Code(s): R09.02 - HYPOXEMIA Status: Acute Current Visit: Yes - Problem List Review Problem List Initiated/Reviewed/Updated: Yes - My Orders Last 24 Hours: My Active Orders 08/15/21 05:11 CBC WITH AUTO DIFF [HEME] AM COMPREHENSIVE METABOLIC PN,CMP [CHEM] AM 08/16/21 05:11 CBC WITH AUTO DIFF [HEME] AM COMPREHENSIVE METABOLIC PN,CMP [CHEM] AM 08/17/21 05:11 CBC WITH AUTO DIFF [HEME] AM COMPREHENSIVE METABOLIC PN,CMP [CHEM] AM - Plan Plan:: 46 yo male admitted for COVID-19 with hypoxia Hypoxia: on 5 L NC COVID: continue remdesivir, and dexamethasone Lovenox for dvt prophylaxis
[2021-08-14] MEDS: REMDESIVIR 100 MG in Sodium Chloride 0.9% 100 ML IV SCH (16:18)
[2021-08-14] MEDS: Enoxaparin 40 MG/0.4 ML Syringe SUBCUT SCH (19:48)
[2021-08-15] MEDS: Codeine/Promethazine 10-6.25 MG/5 ML Syrup 5 ML UD Syringe PO SCH ×5 (00:12→23:10)
[2021-08-15 08:22] LABS: BLOOD UREA NITROGEN,BUN 20 mg/dL (7.0-18.0); CARBON DIOXIDE,CO2 26.9 mmol/L (21.0-32.0); CHLORIDE,CL 101 mmol/L (98-107); GLUCOSE RANDOM 121 mg/dL (74-106); SODIUM,NA 136 mmol/L (136-148)
[2021-08-15] MEDS: Albuterol/Ipratropium 4 GM Inhalation Spray INH PRN ×2 (09:10→19:30)
[2021-08-15] MEDS ORDERED: Iopamidol 755 MG/ML 500 ML Multipack Bottle IVPUSH ONE (10:45)
[2021-08-15] MEDS ORDERED: Heparin Sodium 5,000 Units/ML Vial IVPUSH ONE ×2 (11:04→12:45)
--- NOTE | 2021-08-15 11:21 | CT ---
HISTORY: COVID causative. Hypoxia. COMPARISON: None. TECHNIQUE: Axial images were obtained through chest following 100 cc of Isovue-370 intravenous contrast. FINDINGS: Acute pulmonary emboli subsegmental pulmonary artery branches of the right and left lower lobes and left upper lobe. No evidence for right heart strain. Moderate to severe diffuse ground-glass infiltrates bilaterally. No pleural or pericardial effusion. No thoracic lymphadenopathy. Impression : 1. Acute pulmonary emboli bilateral subsegmental pulmonary branches. 2. Moderate to severe diffuse ground-glass infiltrates bilaterally consistent with COVID pneumonia. 3. Results acute pulmonary embolism called to Dr. Kobe Trivedi on 08/15/2021 at 10:50 a.m. Please note that all CT scans at this facility use dose modulation, iterative reconstruction, and/or weight-based dosing when appropriate to reduce radiation dose to as low as reasonably achievable. Dictated by Nano Atkins MD @ 08/15/2021 11:20:43 AM (Electronically Signed)
--- NOTE | 2021-08-15 11:40 | PCM.PN ---
- General Info Date of Service: 08/15/21 - Review of Systems Systems Review Comment:: reports shortness of breath but stable from yesterday, deneis any chest pain, or lightheadedness - Patient Data Vitals - Most Recent: Last Vital Signs Temp 36.2 C 08/15/21 09:02 Pulse 63 08/15/21 09:02 Resp 24 H 08/15/21 09:02 BP 104/67 08/15/21 09:02 Pulse Ox 91 L 08/15/21 09:02 Weight - Most Recent: 95.254 kg I&O - Last 24 Hours: Intake & Output 08/14/21 08/15/21 08/15/21 22:59 06:59 14:59 Intake Total 1660 600 Output Total 0 Balance 1660 600 Lab Results Last 24 Hours: Laboratory Results - last 24 hr 08/15/21 08/15/21 Range/Units 07:07 07:07 WBC 8.46 (4.0-11.0) K/uL RBC 4.83 (4.50-5.90) M/uL Hgb 14.2 (13.0-17.0) g/dL Hct 40.9 (38.0-50.0) % MCV 84.7 (80.0-98.0) fL MCH 29.4 (27.0-32.0) pg MCHC 34.7 (31.0-37.0) g/dL RDW Std Deviation 39.2 (28.0-62.0) fl RDW Coeff of Mason 13 (11.0-15.0) % Plt Count 198 (150-400) K/uL MPV 8.80 (7.40-12.00) fL Neut % (Auto) 82.6 H (48.0-80.0) % Lymph % (Auto) 9.7 L (16.0-40.0) % [place] % (Auto) 7.6 (0.0-15.0) % Eos % (Auto) 0.0 (0.0-7.0) % Baso % (Auto) 0.1 (0.0-1.5) % Neut # (Auto) 7.0 H (1.4-5.7) K/uL Lymph # (Auto) 0.8 (0.6-2.4) K/uL [place] # (Auto) 0.6 (0.0-0.8) K/uL Eos # (Auto) 0.0 (0.0-0.7) K/uL Baso # (Auto) 0.0 (0.0-0.1) K/uL Nucleated RBC % 0.0 /100WBC Nucleated RBCs # 0 K/uL Sodium 136 (136-148) mmol/L Potassium 4.0 (3.5-5.1) mmol/L Chloride 101 (98-107) mmol/L Carbon Dioxide 26.9 (21.0-32.0) mmol/L BUN 20 H (7.0-18.0) mg/dL Creatinine 0.9 (0.8-1.3) mg/dL Est Cr Clr Drug Dosing 107.02 mL/min Estimated GFR (MDRD) > 60.0 ml/min Glucose 121 H (74-106) mg/dL Calcium 7.8 L (8.5-10.1) mg/dL Total Bilirubin 0.8 (0.2-1.0) mg/dL AST 79 H (15-37) IU/L ALT 141 H (14-63) IU/L Alkaline Phosphatase 94 (46-116) U/L Total Protein 6.6 (6.4-8.2) g/dL Albumin 2.6 L (3.4-5.0) g/dL Globulin 4.0 (2.6-4.0) g/dL Albumin/Globulin Ratio 0.7 L (0.9-1.6) Med Orders - Current: Current Medications Albuterol/Ipratropium (Albuterol/Ipratropium 4 Gm Inhalation [place]) 0 gm INH Q4H PRN PRN Reason: Dyspnea Last Admin: 08/15/21 09:10 Dose: 1 puff Documented by: Baricitinib (Baricitinib 2 Mg Tab) 4 mg PO Q24H IAN Benzonatate (Benzonatate 100 Mg Cap) 100 mg PO Q6H PRN PRN Reason: Cough Last Admin: 08/13/21 04:28 Dose: 100 mg Documented by: Dexamethasone (Dexamethasone 4 Mg Tab) 6 mg PO Q24H IAN Last Admin: 08/14/21 15:40 Dose: 6 mg Documented by: Heparin Sodium (Porcine) (Heparin Sodium 5,000 Units/Ml Vial) 5,000 units IVPUSH .BOLUS ONE Stop: 08/15/21 11:05 Remdesivir 100 mg/ Sodium (Chloride) 100 mls @ 100 mls/hr IV Q24H IAN Stop: 08/15/21 17:59 Last Admin: 08/14/21 16:18 Dose: 100 mls/hr Documented by: Heparin Sodium/Sodium Chloride (Heparin 25,000 Units In 1/2 Ns 500 Ml) 500 mls @ 26.671 mls/hr IV TITRATE IAN; Protocol Melatonin (Melatonin 3 Mg Tab) 6 mg PO BEDTIME PRN PRN Reason: Insomnia Last Admin: 08/13/21 00:39 Dose: 6 mg Documented by: Promethazine HCl/Codeine (Codeine/Promethazine 10-6.25 Mg/5 Ml Syrup 5 Ml Ud Syringe) 5 ml PO Q6HR IAN Last Admin: 08/15/21 06:11 Dose: 5 ml Documented by: Discontinued Medications Albuterol/Ipratropium (Albuterol/Ipratropium 3.0-0.5 Mg/3 Ml Neb Soln) 3 ml NEB ONETIME ONE Stop: 08/11/21 13:27 Last Admin: 08/11/21 14:00 Dose: 3 ml Documented by: Dexamethasone (Dexamethasone 10 Mg/Ml Sdv) 10 mg IVPUSH ONETIME ONE Stop: 08/11/21 16:21 Last Admin: 08/11/21 16:34 Dose: 10 mg Documented by: Enoxaparin Sodium (Enoxaparin 40 Mg/0.4 Ml Syringe) 40 mg SUBCUT Q24H IAN Last Admin: 08/14/21 19:48 Dose: 40 mg Documented by: Sodium Chloride (Normal Saline) 1,000 mls @ 1,000 mls/hr IV .Bolus ONE Stop: 08/11/21 14:32 Last Admin: 08/11/21 13:59 Dose: 1,000 mls/hr Documented by: Remdesivir 200 mg/ Sodium (Chloride) 250 mls @ 250 mls/hr IV ONETIME ONE Stop: 08/11/21 16:39 Last Admin: 08/11/21 21:19 Dose: Not Given Documented by: Remdesivir 200 mg/ Sodium (Chloride) 250 mls @ 250 mls/hr IV ONETIME ONE Stop: 08/11/21 17:59 Last Admin: 08/11/21 19:53 Dose: 250 mls/hr Documented by: Iopamidol (Iopamidol 755 Mg/Ml 500 Ml Multipack Bottle) 100 ml IVPUSH ONETIME ONE Stop: 08/15/21 10:46 Last Admin: 08/15/21 10:45 Dose: 100 ml Documented by: Potassium Chloride (Potassium Chloride 20 Meq Tab.Er) 40 meq PO ONETIME ONE Stop: 08/11/21 18:57 Last Admin: 08/11/21 19:51 Dose: 40 meq Documented by: - Exam General: Alert, Oriented Neck: Supple Lungs: Clear to Auscultation, Normal Respiratory Effort Cardiovascular: Regular Rate, Regular Rhythm GI/Abdominal Exam: Soft, Non-Tender Extremities: Non-Tender, No Pedal Edema Skin: Warm, Dry, Intact Neurological: No New Focal Deficit - Patient Data Lab Results Last 24 hrs: Laboratory Results - last 24 hr 08/15/21 08/15/21 Range/Units 07:07 07:07 WBC 8.46 (4.0-11.0) K/uL RBC 4.83 (4.50-5.90) M/uL Hgb 14.2 (13.0-17.0) g/dL Hct 40.9 (38.0-50.0) % MCV 84.7 (80.0-98.0) fL MCH 29.4 (27.0-32.0) pg MCHC 34.7 (31.0-37.0) g/dL RDW Std Deviation 39.2 (28.0-62.0) fl RDW Coeff of Mason 13 (11.0-15.0) % Plt Count 198 (150-400) K/uL MPV 8.80 (7.40-12.00) fL Neut % (Auto) 82.6 H (48.0-80.0) % Lymph % (Auto) 9.7 L (16.0-40.0) % Haakon % (Auto) 7.6 (0.0-15.0) % Eos % (Auto) 0.0 (0.0-7.0) % Baso % (Auto) 0.1 (0.0-1.5) % Neut # (Auto) 7.0 H (1.4-5.7) K/uL Lymph # (Auto) 0.8 (0.6-2.4) K/uL [place] # (Auto) 0.6 (0.0-0.8) K/uL Eos # (Auto) 0.0 (0.0-0.7) K/uL Baso # (Auto) 0.0 (0.0-0.1) K/uL Nucleated RBC % 0.0 /100WBC Nucleated RBCs # 0 K/uL Sodium 136 (136-148) mmol/L Potassium 4.0 (3.5-5.1) mmol/L Chloride 101 (98-107) mmol/L Carbon Dioxide 26.9 (21.0-32.0) mmol/L BUN 20 H (7.0-18.0) mg/dL Creatinine 0.9 (0.8-1.3) mg/dL Est Cr Clr Drug Dosing 107.02 mL/min Estimated GFR (MDRD) > 60.0 ml/min Glucose 121 H (74-106) mg/dL Calcium 7.8 L (8.5-10.1) mg/dL Total Bilirubin 0.8 (0.2-1.0) mg/dL AST 79 H (15-37) IU/L ALT 141 H (14-63) IU/L Alkaline Phosphatase 94 (46-116) U/L Total Protein 6.6 (6.4-8.2) g/dL Albumin 2.6 L (3.4-5.0) g/dL Globulin 4.0 (2.6-4.0) g/dL Albumin/Globulin Ratio 0.7 L (0.9-1.6) Result Diagrams: 08/15/21 07:07 08/15/21 07:07 Sepsis Event Note - Evaluation Sepsis Screening Result: No Definite Risk - Focused Exam Vital Signs: Vital Signs Temp Pulse Resp BP Pulse Ox 08/15/21 09:02 36.2 C 63 24 H 104/67 91 L 08/15/21 03:55 36.3 C 60 16 108/72 91 L 08/15/21 00:14 36.2 C 68 16 126/84 90 L - Problem List & Annotations (1) COVID SNOMED Code(s): 250173154 Code(s): U07.1 - COVID-19 Status: Acute Current Visit: Yes (2) Hypoxia SNOMED Code(s): 454067796 Code(s): R09.02 - HYPOXEMIA Status: Acute Current Visit: Yes - Problem List Review Problem List Initiated/Reviewed/Updated: Yes - My Orders Last 24 Hours: My Active Orders 08/15/21 11:04 Heparin Sodium 5,000 units IVPUSH .BOLUS ONE 08/15/21 11:05 PTT,PARTIAL THROMBOPLSTIN TIME [COAG] Stat 08/15/21 11:07 CRP [C-REACTIVE PROTEIN] [CHEM] Routine 08/15/21 11:15 PTT,PARTIAL THROMBOPLSTIN TIME [COAG] Q6H Baricitinib [Olumiant] 4 mg PO Q24H Heparin Sodium/0.45% NaCl [Heparin 25,000 Units in 1/2 NS 500 ML] 500 ml IV TITRATE 08/15/21 11:35 Transfer Patient (Change bed) [ADT] Routine 08/15/21 17:15 PTT,PARTIAL THROMBOPLSTIN TIME [COAG] Q6H 08/15/21 23:15 PTT,PARTIAL THROMBOPLSTIN TIME [COAG] Q6H 08/16/21 05:11 CBC WITH AUTO DIFF [HEME] AM COMPREHENSIVE METABOLIC PN,CMP [CHEM] AM 08/16/21 05:15 PTT,PARTIAL THROMBOPLSTIN TIME [COAG] Q6H 08/16/21 11:15 PTT,PARTIAL THROMBOPLSTIN TIME [COAG] Q6H 08/16/21 17:15 PTT,PARTIAL THROMBOPLSTIN TIME [COAG] Q6H 08/16/21 23:15 PTT,PARTIAL THROMBOPLSTIN TIME [COAG] Q6H 08/17/21 05:11 CBC WITH AUTO DIFF [HEME] AM COMPREHENSIVE METABOLIC PN,CMP [CHEM] AM - Plan Plan:: 46 yo male admitted for COVID-19 with hypoxia Hypoxia: need for oxygen went up acutely this morning, patient requiring heat high flow NC, will transfer to ICU. CT angio reports bilateral PEs COVID: continue remdesivir, and dexamethasone Patient educated on the FDA EUA of baricitinib and consented to its use PE: will start heparin drip
[2021-08-15] MEDS: Heparin Sodium/0.45% NaCl 500 ML IV SCH (12:42)
--- NOTE | 2021-08-15 15:13 | PN ---
THC Physician - Brief Progress [id number]/21/2021 13:59[facility] Dustin Betancourt, [place] - [facility] - KEN FLORESBARBARA ADORE Malena, COVID+Date of Service 08/15/2021 13:59HPI/Ev ents of Note eICU Admission NotePt is a 46 yo M originally admitted on 08/11 after a week of symptoms at home, found to be COVID positive and admitted to the GPU on 6L NC. PMH is otherwise negative. He was started on Steroids, Remdesivir and Baricitinib and doing well until this am when his O2 needs ac utely gita. CT of the chest demonstrated B/L PE's so he has been transferred to the ICU, started on HF NC to maintain his sats and had a Heparin gtt initiated. He is currently resting in bed in NAD wit h stable VS on HF. Case was discussed with his nurse Liyah. eICU Recommendations:1) HF NC for a goal SpO2 of 88-92%2) Heparin gtt with transition to OAC upon discharge3) Consider 2D Echo when available to ensure no significant R) heart strain and need for potential further intervention4) Continue all a ppropriate COVID therapies5) Encourage self proning and activity as tolerated6) GI prophylaxisThhafsa y pablo for allowing us to participate in the care of your patient.Interventions Major-Hypoxemia - evaluat ion and management, Infection - evaluation and management, Respiratory failure - evaluation and manag [id number] therapies (e.g. VTE, beta krishna, etc.), Communication with other althcare providers and/or family
[2021-08-15] MEDS: REMDESIVIR 100 MG in Sodium Chloride 0.9% 100 ML IV SCH (16:35)
[2021-08-15] MEDS: Dexamethasone 4 MG Tab PO SCH (16:37)
[2021-08-15] MEDS: Benzonatate 100 MG Cap PO PRN (20:37)
[2021-08-15] MEDS: Melatonin 3 MG Tab PO PRN (20:37)
[2021-08-15] MEDS: Pantoprazole 40 MG Tab.CR PO SCH (23:10)
[2021-08-16] MEDS: Albuterol/Ipratropium 4 GM Inhalation Spray INH PRN ×3 (00:50→16:55)
[2021-08-16] MEDS: Heparin Sodium/0.45% NaCl 500 ML IV SCH ×2 (04:23→21:42)
[2021-08-16] MEDS: Codeine/Promethazine 10-6.25 MG/5 ML Syrup 5 ML UD Syringe PO SCH ×4 (05:10→23:41)
[2021-08-16 06:27] LABS: BLOOD UREA NITROGEN,BUN 17 mg/dL (7.0-18.0); CARBON DIOXIDE,CO2 27.1 mmol/L (21.0-32.0); CHLORIDE,CL 101 mmol/L (98-107); GLUCOSE RANDOM 129 mg/dL (74-106); POTASSIUM,K 4.3 mmol/L (3.5-5.1); SODIUM,NA 137 mmol/L (136-148)
[2021-08-16] MEDS: Benzonatate 100 MG Cap PO PRN ×2 (08:13→16:55)
[2021-08-16] MEDS ORDERED: Heparin Sodium 5,000 Units/ML Vial IVPUSH ONE (12:35)
--- NOTE | 2021-08-16 15:47 | PN ---
THC Physician - Brief Progress [id number]/22/2021 15:44[facility] Dustin Betancourt, [place] - KEN (SPEED[facility]) - ADOER ADAMS, COVID+Date of Service 08/16/2021 15:44HPI/Ev ents of Note eICU progress note:Patient is a 46-year-old male who was admitted for COVID-19 pneumonia on 08/11. Patient was transferred to ICU on 08/15 for increased oxygen requirements requiring heate d high flow nasal cannula. He is being maintained on Decadron and baricitinib, previously completed remdesivir course. Today, he has been weaned down to 70% / 60 L and tolerating it well for the most part. He ambulates and does desaturate with activity with slow recovery. Patient does not report so me anxiety and requests Ativan. He is maintained on his heparin infusion bilateral pulmonary emboli. Video examination performed. Sitting up edge of the bed in no acute distress. No signs stable on mo nitor.Recommendations:-Continue oxygen support, wean as tolerated-Self proning as tolerated-Continue current medications including baricitinib and Decadron-Continue heparin infusion, transition to DOAC prior to dischargeThank you for involving us in the care of this patient.Interventions Major-Hypoxemi a - evaluation and management, Infection - evaluation and management, Respiratory failure - evaluatio n and management
[2021-08-16] MEDS: Dexamethasone 4 MG Tab PO SCH (16:55)
[2021-08-16] MEDS: LORazepam 1 MG Tab PO PRN (18:43)
--- NOTE | 2021-08-16 19:07 | PCM.PN ---
- General Info Date of Service: 08/16/21 - Review of Systems Systems Review Comment:: reports shortness of breath stable, no chest pain, no fevers - Patient Data Vitals - Most Recent: Last Vital Signs Temp 36.1 C 08/16/21 16:00 Pulse 69 08/15/21 18:56 Resp 25 H 08/16/21 17:00 BP 105/60 08/16/21 17:00 Pulse Ox 90 L 08/16/21 17:00 Weight - Most Recent: 96.4 kg I&O - Last 24 Hours: Intake & Output 08/16/21 08/16/21 08/16/21 06:59 14:59 22:59 Intake Total 1994 1839 Output Total 0 1950 Balance -905 -110 Lab Results Last 24 Hours: Laboratory Results - last 24 hr 08/15/21 08/16/21 08/16/21 Range/Units 23:15 05:08 05:08 WBC 9.03 (4.0-11.0) K/uL RBC 4.68 (4.50-5.90) M/uL Hgb 13.6 (13.0-17.0) g/dL Hct 39.3 (38.0-50.0) % MCV 84.0 (80.0-98.0) fL MCH 29.1 (27.0-32.0) pg MCHC 34.6 (31.0-37.0) g/dL RDW Std Deviation 38.5 (28.0-62.0) fl RDW Coeff of Mason 13 (11.0-15.0) % Plt Count 150 (150-400) K/uL MPV 9.80 (7.40-12.00) fL Neut % (Auto) 85.3 H (48.0-80.0) % Lymph % (Auto) 8.2 L (16.0-40.0) % [place] % (Auto) 6.4 (0.0-15.0) % Eos % (Auto) 0.0 (0.0-7.0) % Baso % (Auto) 0.1 (0.0-1.5) % Neut # (Auto) 7.7 H (1.4-5.7) K/uL Lymph # (Auto) 0.7 (0.6-2.4) K/uL [place] # (Auto) 0.6 (0.0-0.8) K/uL Eos # (Auto) 0.0 (0.0-0.7) K/uL Baso # (Auto) 0.0 (0.0-0.1) K/uL Nucleated RBC % 0.0 /100WBC Nucleated RBCs # 0 K/uL APTT 53.4 H (18.6-31.3) SEC Sodium 137 (136-148) mmol/L Potassium 4.3 (3.5-5.1) mmol/L Chloride 101 (98-107) mmol/L Carbon Dioxide 27.1 (21.0-32.0) mmol/L BUN 17 (7.0-18.0) mg/dL Creatinine 0.9 (0.8-1.3) mg/dL Est Cr Clr Drug Dosing 107.02 mL/min Estimated GFR (MDRD) > 60.0 ml/min Glucose 129 H (74-106) mg/dL Calcium 7.9 L (8.5-10.1) mg/dL Total Bilirubin 0.9 (0.2-1.0) mg/dL AST 48 H (15-37) IU/L ALT 108 H (14-63) IU/L Alkaline Phosphatase 92 (46-116) U/L Total Protein 6.1 L (6.4-8.2) g/dL Albumin 2.6 L (3.4-5.0) g/dL Globulin 3.5 (2.6-4.0) g/dL Albumin/Globulin Ratio 0.7 L (0.9-1.6) 08/16/21 08/16/21 08/16/21 Range/Units 05:08 11:56 17:27 WBC (4.0-11.0) K/uL RBC (4.50-5.90) M/uL Hgb (13.0-17.0) g/dL Hct (38.0-50.0) % MCV (80.0-98.0) fL MCH (27.0-32.0) pg MCHC (31.0-37.0) g/dL RDW Std Deviation (28.0-62.0) fl RDW Coeff of Mason (11.0-15.0) % Plt Count (150-400) K/uL MPV (7.40-12.00) fL Neut % (Auto) (48.0-80.0) % Lymph % (Auto) (16.0-40.0) % [place] % (Auto) (0.0-15.0) % Eos % (Auto) (0.0-7.0) % Baso % (Auto) (0.0-1.5) % Neut # (Auto) (1.4-5.7) K/uL Lymph # (Auto) (0.6-2.4) K/uL [place] # (Auto) (0.0-0.8) K/uL Eos # (Auto) (0.0-0.7) K/uL Baso # (Auto) (0.0-0.1) K/uL Nucleated RBC % /100WBC Nucleated RBCs # K/uL APTT 53.0 H 46.7 H 60.3 H (18.6-31.3) SEC Sodium (136-148) mmol/L Potassium (3.5-5.1) mmol/L Chloride (98-107) mmol/L Carbon Dioxide (21.0-32.0) mmol/L BUN (7.0-18.0) mg/dL Creatinine (0.8-1.3) mg/dL Est Cr Clr Drug Dosing mL/min Estimated GFR (MDRD) ml/min Glucose (74-106) mg/dL Calcium (8.5-10.1) mg/dL Total Bilirubin (0.2-1.0) mg/dL AST (15-37) IU/L ALT (14-63) IU/L Alkaline Phosphatase (46-116) U/L Total Protein (6.4-8.2) g/dL Albumin (3.4-5.0) g/dL Globulin (2.6-4.0) g/dL Albumin/Globulin Ratio (0.9-1.6) Med Orders - Current: Current Medications Albuterol/Ipratropium (Albuterol/Ipratropium 4 Gm Inhalation [place]) 0 gm INH Q4H PRN PRN Reason: Dyspnea Last Admin: 08/16/21 16:55 Dose: 1 puff Documented by: Baricitinib (Baricitinib 2 Mg Tab) 4 mg PO Q24H IAN Last Admin: 08/16/21 11:47 Dose: 4 mg Documented by: Benzonatate (Benzonatate 100 Mg Cap) 100 mg PO Q6H PRN PRN Reason: Cough Last Admin: 08/16/21 16:55 Dose: 100 mg Documented by: Dexamethasone (Dexamethasone 4 Mg Tab) 6 mg PO Q24H IAN Last Admin: 08/16/21 16:55 Dose: 6 mg Documented by: Heparin Sodium/Sodium Chloride (Heparin 25,000 Units In 1/2 Ns 500 Ml) 500 mls @ 26.671 mls/hr IV TITRATE IAN; Protocol Last Titration: 08/16/21 12:49 Dose: 16 units/kg/hr, 30.481 mls/hr Documented by: Lorazepam (Lorazepam 1 Mg Tab) 1 mg PO Q8H PRN PRN Reason: Anxiety Last Admin: 08/16/21 18:43 Dose: 1 mg Documented by: Melatonin (Melatonin 3 Mg Tab) 6 mg PO BEDTIME PRN PRN Reason: Insomnia Last Admin: 08/15/21 20:37 Dose: 6 mg Documented by: Pantoprazole Sodium (Pantoprazole 40 Mg Tab.Cr) 40 mg PO BEDTIME IAN Last Admin: 08/15/21 23:10 Dose: 40 mg Documented by: Promethazine HCl/Codeine (Codeine/Promethazine 10-6.25 Mg/5 Ml Syrup 5 Ml Ud Syringe) 5 ml PO Q6HR [facility] Last Admin: 08/16/21 18:00 Dose: 5 ml Documented by: Discontinued Medications Albuterol/Ipratropium (Albuterol/Ipratropium 3.0-0.5 Mg/3 Ml Neb Soln) 3 ml NEB ONETIME ONE Stop: 08/11/21 13:27 Last Admin: 08/11/21 14:00 Dose: 3 ml Documented by: Dexamethasone (Dexamethasone 10 Mg/Ml Sdv) 10 mg IVPUSH ONETIME ONE Stop: 08/11/21 16:21 Last Admin: 08/11/21 16:34 Dose: 10 mg Documented by: Enoxaparin Sodium (Enoxaparin 40 Mg/0.4 Ml Syringe) 40 mg SUBCUT Q24H [facility] Last Admin: 08/14/21 19:48 Dose: 40 mg Documented by: Heparin Sodium (Porcine) (Heparin Sodium 5,000 Units/Ml Vial) 7,200 units IVPUSH .BOLUS ONE Stop: 08/15/21 12:46 Last Admin: 08/15/21 12:42 Dose: 7,200 units Documented by: Heparin Sodium (Porcine) (Heparin Sodium 5,000 Units/Ml Vial) 1,500 units IVPUSH .BOLUS ONE Stop: 08/16/21 12:36 Last Admin: 08/16/21 12:49 Dose: 1,500 units Documented by: Sodium Chloride (Normal Saline) 1,000 mls @ 1,000 mls/hr IV .Bolus ONE Stop: 08/11/21 14:32 Last Admin: 08/11/21 13:59 Dose: 1,000 mls/hr Documented by: Remdesivir 200 mg/ Sodium (Chloride) 250 mls @ 250 mls/hr IV ONETIME ONE Stop: 08/11/21 16:39 Last Admin: 08/11/21 21:19 Dose: Not Given Documented by: Remdesivir 200 mg/ Sodium (Chloride) 250 mls @ 250 mls/hr IV ONETIME ONE Stop: 08/11/21 17:59 Last Admin: 08/11/21 19:53 Dose: 250 mls/hr Documented by: Remdesivir 100 mg/ Sodium (Chloride) 100 mls @ 100 mls/hr IV Q24H IAN Stop: 08/15/21 17:59 Last Admin: 08/15/21 16:35 Dose: 100 mls/hr Documented by: Iopamidol (Iopamidol 755 Mg/Ml 500 Ml Multipack Bottle) 100 ml IVPUSH ONETIME ONE Stop: 08/15/21 10:46 Last Admin: 08/15/21 10:45 Dose: 100 ml Documented by: Potassium Chloride (Potassium Chloride 20 Meq Tab.Er) 40 meq PO ONETIME ONE Stop: 08/11/21 18:57 Last Admin: 08/11/21 19:51 Dose: 40 meq Documented by: - Exam General: Alert, Oriented Lungs: Clear to Auscultation, Normal Respiratory Effort Cardiovascular: Regular Rate, Regular Rhythm GI/Abdominal Exam: Soft, Non-Tender, No Distention Extremities: Non-Tender, No Pedal Edema Skin: Warm, Dry, Intact Neurological: No New Focal Deficit - Patient Data Lab Results Last 24 hrs: Laboratory Results - last 24 hr 08/15/21 08/16/2108/16/21 Range/Units 23:15 05:08 05:08 WBC 9.03 (4.0-11.0) K/uL RBC 4.68 (4.50-5.90) M/uL Hgb 13.6 (13.0-17.0) g/dL Hct 39.3 (38.0-50.0) % MCV 84.0 (80.0-98.0) fL MCH 29.1 (27.0-32.0) pg MCHC 34.6 (31.0-37.0) g/dL RDW Std Deviation 38.5 (28.0-62.0) fl RDW Coeff of Mason 13 (11.0-15.0) % Plt Count 150 (150-400) K/uL MPV 9.80 (7.40-12.00) fL Neut % (Auto) 85.3 H (48.0-80.0) % Lymph % (Auto) 8.2 L (16.0-40.0) % [place] % (Auto) 6.4 (0.0-15.0) % Eos % (Auto) 0.0 (0.0-7.0) % Baso % (Auto) 0.1 (0.0-1.5) % Neut # (Auto) 7.7 H (1.4-5.7) K/uL Lymph # (Auto) 0.7 (0.6-2.4) K/uL [place] # (Auto) 0.6 (0.0-0.8) K/uL Eos # (Auto) 0.0 (0.0-0.7) K/uL Baso # (Auto) 0.0 (0.0-0.1) K/uL Nucleated RBC % 0.0 /100WBC Nucleated RBCs # 0 K/uL APTT 53.4 H (18.6-31.3) SEC Sodium 137 (136-148) mmol/L Potassium 4.3 (3.5-5.1) mmol/L Chloride 101 (98-107) mmol/L Carbon Dioxide 27.1 (21.0-32.0) mmol/L BUN 17 (7.0-18.0) mg/dL Creatinine 0.9 (0.8-1.3) mg/dL Est Cr Clr Drug Dosing 107.02 mL/min Estimated GFR (MDRD) > 60.0 ml/min Glucose 129 H (74-106) mg/dL Calcium 7.9 L (8.5-10.1) mg/dL Total Bilirubin 0.9 (0.2-1.0) mg/dL AST 48 H (15-37) IU/L ALT 108 H (14-63) IU/L Alkaline Phosphatase 92 (46-116) U/L Total Protein 6.1 L (6.4-8.2) g/dL Albumin 2.6 L (3.4-5.0) g/dL Globulin 3.5 (2.6-4.0) g/dL Albumin/Globulin Ratio 0.7 L (0.9-1.6) 08/16/21 08/16/21 08/16/21 Range/Units 05:08 11:56 17:27 WBC (4.0-11.0) K/uL RBC (4.50-5.90) M/uL Hgb (13.0-17.0) g/dL Hct (38.0-50.0) % MCV (80.0-98.0) fL MCH (27.0-32.0) pg MCHC (31.0-37.0) g/dL RDW Std Deviation (28.0-62.0) fl RDW Coeff of Mason (11.0-15.0) % Plt Count (150-400) K/uL MPV (7.40-12.00) fL Neut % (Auto) (48.0-80.0) % Lymph % (Auto) (16.0-40.0) % [place] % (Auto) (0.0-15.0) % Eos % (Auto) (0.0-7.0) % Baso % (Auto) (0.0-1.5) % Neut # (Auto) (1.4-5.7) K/uL Lymph # (Auto) (0.6-2.4) K/uL [place] # (Auto) (0.0-0.8) K/uL Eos # (Auto) (0.0-0.7) K/uL Baso # (Auto) (0.0-0.1) K/uL Nucleated RBC % /100WBC Nucleated RBCs # K/uL APTT 53.0 H 46.7 H 60.3 H (18.6-31.3) SEC Sodium (136-148) mmol/L Potassium (3.5-5.1) mmol/L Chloride (98-107) mmol/L Carbon Dioxide (21.0-32.0) mmol/L BUN (7.0-18.0) mg/dL Creatinine (0.8-1.3) mg/dL Est Cr Clr Drug Dosing mL/min Estimated GFR (MDRD) ml/min Glucose (74-106) mg/dL Calcium (8.5-10.1) mg/dL Total Bilirubin (0.2-1.0) mg/dL AST (15-37) IU/L ALT (14-63) IU/L Alkaline Phosphatase (46-116) U/L Total Protein (6.4-8.2) g/dL Albumin (3.4-5.0) g/dL Globulin (2.6-4.0) g/dL Albumin/Globulin Ratio (0.9-1.6) Result Diagrams: 08/16/21 05:08 08/16/21 05:08 Sepsis Event Note - Evaluation Sepsis Screening Result: No Definite Risk - Focused Exam Vital Signs: Vital Signs Temp Resp BP Pulse Ox 08/16/21 17:00 25 H 105/60 90 L 08/16/21 16:00 36.1 C 22 H 121/70 90 L 08/16/21 15:00 18 109/61 92 L 08/16/21 14:00 28 H 110/72 89 L 08/16/21 13:00 20 116/78 93 L 08/16/21 12:00 36.2 C 20 121/72 97 08/16/21 11:00 19 120/77 91 L 08/16/21 10:00 24 H 122/82 96 08/16/21 09:00 20 128/85 98 08/16/21 08:00 36.9 C 19 119/76 90 L - Problem List & Annotations (1) COVID SNOMED Code(s): 946977425 Code(s): U07.1 - COVID-19 Status: Acute Current Visit: Yes (2) Hypoxia SNOMED Code(s): 615988925 Code(s): R09.02 - HYPOXEMIA Status: Acute Current Visit: Yes - Problem List Review Problem List Initiated/Reviewed/Updated: Yes - My Orders Last 24 Hours: My Active Orders 08/15/21 23:00 Pantoprazole [ProTONIX] 40 mg PO BEDTIME 08/16/21 18:32 LORazepam [Ativan] 1 mg PO Q8H PRN 08/16/21 23:15 PTT,PARTIAL THROMBOPLSTIN TIME [COAG] Q6H 08/17/21 05:11 CBC WITH AUTO DIFF [HEME] AM COMPREHENSIVE METABOLIC PN,CMP [CHEM] AM - Plan Plan:: 46 yo male admitted for COVID-19 with hypoxia Hypoxia: on HHFNC 55 L at 70% COVID: on dexamethasone and baricitinib, finished five days of remdesivir PE: will continue heparin drip
[2021-08-16] MEDS: Melatonin 3 MG Tab PO PRN (21:24)
[2021-08-16] MEDS: Pantoprazole 40 MG Tab.CR PO SCH (21:24)
[2021-08-17] MEDS: Albuterol/Ipratropium 4 GM Inhalation Spray INH PRN (04:32)
[2021-08-17] MEDS: Codeine/Promethazine 10-6.25 MG/5 ML Syrup 5 ML UD Syringe PO SCH ×3 (05:42→17:38)
[2021-08-17 08:25] LABS: CARBON DIOXIDE,CO2 26.2 mmol/L (21.0-32.0); CHLORIDE,CL 102 mmol/L (98-107); POTASSIUM,K 4.7 mmol/L (3.5-5.1); SODIUM,NA 137 mmol/L (136-148)
[2021-08-17 08:30] LABS: GLUCOSE RANDOM 129 mg/dL (74-106)
[2021-08-17 08:41] LABS: BLOOD UREA NITROGEN,BUN 16 mg/dL (7.0-18.0)
[2021-08-17] MEDS: LORazepam 1 MG Tab PO PRN ×2 (09:15→20:48)
--- NOTE | 2021-08-17 11:17 | PCM.PN ---
- General Info Date of Service: 08/17/21 Subjective Update: The patient is a 46-year-old male, on day 7 of service, who has no significant past medical history, who was admitted to the medical floor due to COVID-19 pneumonia and was found to have a pulmonary embolism. Upon interview with the patient today, he continues to have shortness of breath upon rest and slight exertion. He is also complaining of cough productive of clear sputum and congestion. He does not have any pain from his pulmonary embolism but when he does take very deep breaths he does expectorate. He has no issues with urination and/or defecation. We will continue the patient on his heparin 25,000 units for his PE and other medication for his COVID-19. He has finished his remdesivir courses. He has no other complaints at this time. - Review of Systems General: Reports: Weakness, Fatigue. Denies: Fever HEENT: Denies: Headaches, Sore Throat Pulmonary: Reports: Shortness of Breath, Cough, Sputum Cardiovascular: Denies: Chest Pain, Palpitations Gastrointestinal: Denies: Abdominal Pain Genitourinary: Denies: Dysuria - Patient Data Vitals - Most Recent: Last Vital Signs Temp 99.4 F 08/17/21 08:00 Pulse 69 08/15/21 18:56 Resp 20 08/17/21 10:00 BP 110/59 L 08/17/21 10:00 Pulse Ox 88 L 08/17/21 10:00 Weight - Most Recent: 210 lb 1.608 oz I&O - Last 24 Hours: Intake & Output 08/16/21 08/17/21 08/17/21 22:59 06:59 14:59 Intake Total 1840 2272 Output Total 1950 2300 Balance -110 -28 Lab Results Last 24 Hours: Laboratory Results - last 24 hr 08/16/21 08/16/21 08/16/21 Range/Units 11:56 17:27 23:40 WBC (4.0-11.0) K/uL RBC (4.50-5.90) M/uL Hgb (13.0-17.0) g/dL Hct (38.0-50.0) % MCV (80.0-98.0) fL MCH (27.0-32.0) pg MCHC (31.0-37.0) g/dL RDW Std Deviation (28.0-62.0) fl RDW Coeff of [place] (11.0-15.0) % Plt Count (150-400) K/uL MPV (7.40-12.00) fL Neut % (Auto) (48.0-80.0) % Lymph % (Auto) (16.0-40.0) % [place] % (Auto) (0.0-15.0) % Eos % (Auto) (0.0-7.0) % Baso % (Auto) (0.0-1.5) % Neut # (Auto) (1.4-5.7) K/uL Lymph # (Auto) (0.6-2.4) K/uL [place] # (Auto) (0.0-0.8) K/uL Eos # (Auto) (0.0-0.7) K/uL Baso # (Auto) (0.0-0.1) K/uL Nucleated RBC % /100WBC Nucleated RBCs # K/uL APTT 46.7 H 60.3 H 53.1 H (18.6-31.3) SEC Sodium (136-148) mmol/L Potassium (3.5-5.1) mmol/L Chloride (98-107) mmol/L Carbon Dioxide (21.0-32.0) mmol/L BUN (7.0-18.0) mg/dL Creatinine (0.8-1.3) mg/dL Est Cr Clr Drug Dosing mL/min Estimated GFR (MDRD) ml/min Glucose (74-106) mg/dL Calcium (8.5-10.1) mg/dL Total Bilirubin (0.2-1.0) mg/dL AST (15-37) IU/L ALT (14-63) IU/L Alkaline Phosphatase (46-116) U/L Total Protein (6.4-8.2) g/dL Albumin (3.4-5.0) g/dL Globulin (2.6-4.0) g/dL Albumin/Globulin Ratio (0.9-1.6) 08/17/21 08/17/21 08/17/21 Range/Units 05:30 05:30 05:30 WBC 11.81 H (4.0-11.0) K/uL RBC 4.77 (4.50-5.90) M/uL Hgb 13.9 (13.0-17.0) g/dL Hct 40.4 (38.0-50.0) % MCV 84.7 (80.0-98.0) fL MCH 29.1 (27.0-32.0) pg MCHC 34.4 (31.0-37.0) g/dL RDW Std Deviation 38.6 (28.0-62.0) fl RDW Coeff of [place] 13 (11.0-15.0) % Plt Count 154 (150-400) K/uL MPV 9.70 (7.40-12.00) fL Neut % (Auto) 85.8 H (48.0-80.0) % Lymph % (Auto) 8.6 L (16.0-40.0) % [place] % (Auto) 5.1 (0.0-15.0) % Eos % (Auto) 0.3 (0.0-7.0) % Baso % (Auto) 0.2 (0.0-1.5) % Neut # (Auto) 10.1 H (1.4-5.7) K/uL Lymph # (Auto) 1.0 (0.6-2.4) K/uL [place] # (Auto) 0.6 (0.0-0.8) K/uL Eos # (Auto) 0.0 (0.0-0.7) K/uL Baso # (Auto) 0.0 (0.0-0.1) K/uL Nucleated RBC % 0.0 /100WBC Nucleated RBCs # 0 K/uL APTT 78.2 H (18.6-31.3) SEC Sodium 137 (136-148) mmol/L Potassium 4.7 (3.5-5.1) mmol/L Chloride 102 (98-107) mmol/L Carbon Dioxide 26.2 (21.0-32.0) mmol/L BUN 16 (7.0-18.0) mg/dL Creatinine 0.9 (0.8-1.3) mg/dL Est Cr Clr Drug Dosing 107.02 mL/min Estimated GFR (MDRD) > 60.0 ml/min Glucose 129 H (74-106) mg/dL Calcium 8.2 L (8.5-10.1) mg/dL Total Bilirubin 0.9 (0.2-1.0) mg/dL AST 39 H (15-37) IU/L ALT 81 H (14-63) IU/L Alkaline Phosphatase 90 (46-116) U/L Total Protein 6.2 L (6.4-8.2) g/dL Albumin 2.6 L (3.4-5.0) g/dL Globulin 3.6 (2.6-4.0) g/dL Albumin/Globulin Ratio 0.7 L (0.9-1.6) Med Orders - Current: Current Medications Albuterol/Ipratropium (Albuterol/Ipratropium 4 Gm Inhalation [place]) 0 gm INH Q4H PRN PRN Reason: Dyspnea Last Admin: 08/17/21 04:32 Dose: 1 puff Documented by: Baricitinib (Baricitinib 2 Mg Tab) 4 mg PO Q24H IAN Last Admin: 08/16/21 11:47 Dose: 4 mg Documented by: Benzonatate (Benzonatate 100 Mg Cap) 100 mg PO Q6H PRN PRN Reason: Cough Last Admin: 08/16/21 16:55 Dose: 100 mg Documented by: Dexamethasone (Dexamethasone 4 Mg Tab) 6 mg PO Q24H IAN Last Admin: 08/16/21 16:55 Dose: 6 mg Documented by: Heparin Sodium/Sodium Chloride (Heparin 25,000 Units In 1/2 Ns 500 Ml) 500 mls @ 26.671 mls/hr IV TITRATE IAN; Protocol Last Titration: 08/17/21 07:23 Dose: 14 units/kg/hr, 26.671 mls/hr Documented by: Lorazepam (Lorazepam 1 Mg Tab) 1 mg PO Q8H PRN PRN Reason: Anxiety Last Admin: 08/17/21 09:15 Dose: 1 mg Documented by: Melatonin (Melatonin 3 Mg Tab) 6 mg PO BEDTIME PRN PRN Reason: Insomnia Last Admin: 08/16/21 21:24 Dose: 6 mg Documented by: Pantoprazole Sodium (Pantoprazole 40 Mg Tab.Cr) 40 mg PO BEDTIME IAN Last Admin: 08/16/21 21:24 Dose: 40 mg Documented by: Promethazine HCl/Codeine (Codeine/Promethazine 10-6.25 Mg/5 Ml Syrup 5 Ml Ud Syringe) 5 ml PO Q6HR IAN Last Admin: 08/17/21 05:42 Dose: 5 ml Documented by: Discontinued Medications Albuterol/Ipratropium (Albuterol/Ipratropium 3.0-0.5 Mg/3 Ml Neb Soln) 3 ml NEB ONETIME ONE Stop: 08/11/21 13:27 Last Admin: 08/11/21 14:00 Dose: 3 ml Documented by: Dexamethasone (Dexamethasone 10 Mg/Ml Sdv) 10 mg IVPUSH ONETIME ONE Stop: 08/11/21 16:21 Last Admin: 08/11/21 16:34 Dose: 10 mg Documented by: Enoxaparin Sodium (Enoxaparin 40 Mg/0.4 Ml Syringe) 40 mg SUBCUT Q24H IAN Last Admin: 08/14/21 19:48 Dose: 40 mg Documented by: Heparin Sodium (Porcine) (Heparin Sodium 5,000 Units/Ml Vial) 7,200 units IVPUSH .BOLUS ONE Stop: 08/15/21 12:46 Last Admin: 08/15/21 12:42 Dose: 7,200 units Documented by: Heparin Sodium (Porcine) (Heparin Sodium 5,000 Units/Ml Vial) 1,500 units IVPUSH .BOLUS ONE Stop: 08/16/21 12:36 Last Admin: 08/16/21 12:49 Dose: 1,500 units Documented by: Sodium Chloride (Normal Saline) 1,000 mls @ 1,000 mls/hr IV .Bolus ONE Stop: 08/11/21 14:32 Last Admin: 08/11/21 13:59 Dose: 1,000 mls/hr Documented by: Remdesivir 200 mg/ Sodium (Chloride) 250 mls @ 250 mls/hr IV ONETIME ONE Stop: 08/11/21 16:39 Last Admin: 08/11/21 21:19 Dose: Not Given Documented by: Remdesivir 200 mg/ Sodium (Chloride) 250 mls @ 250 mls/hr IV ONETIME ONE Stop: 08/11/21 17:59 Last Admin: 08/11/21 19:53 Dose: 250 mls/hr Documented by: Remdesivir 100 mg/ Sodium (Chloride) 100 mls @ 100 mls/hr IV Q24H IAN Stop: 08/15/21 17:59 Last Admin: 08/15/21 16:35 Dose: 100 mls/hr Documented by: Iopamidol (Iopamidol 755 Mg/Ml 500 Ml Multipack Bottle) 100 ml IVPUSH ONETIME ONE Stop: 08/15/21 10:46 Last Admin: 08/15/21 10:45 Dose: 100 ml Documented by: Potassium Chloride (Potassium Chloride 20 Meq Tab.Er) 40 meq PO ONETIME ONE Stop: 08/11/21 18:57 Last Admin: 08/11/21 19:51 Dose: 40 meq Documented by: - Exam General: Alert, Oriented, Cooperative HEENT: Mucous Membr. Moist/[place] Neck: Trachea Midline Lungs: Wheezing Cardiovascular: Regular Rate, Regular Rhythm GI/Abdominal Exam: Normal Bowel Sounds, Soft, Non-Tender Extremities: No Pedal Edema - Patient Data Lab Results Last 24 hrs: Laboratory Results - last 24 hr 08/16/21 08/16/21 08/16/21 Range/Units 11:56 17:27 23:40 WBC (4.0-11.0) K/uL RBC (4.50-5.90) M/uL Hgb (13.0-17.0) g/dL Hct (38.0-50.0) % MCV (80.0-98.0) fL MCH (27.0-32.0) pg MCHC (31.0-37.0) g/dL RDW Std Deviation (28.0-62.0) fl RDW Coeff of [place] (11.0-15.0) % Plt Count (150-400) K/uL MPV (7.40-12.00) fL Neut % (Auto) (48.0-80.0) % Lymph % (Auto) (16.0-40.0) % [place] % (Auto) (0.0-15.0) % Eos % (Auto) (0.0-7.0) % Baso % (Auto) (0.0-1.5) % Neut # (Auto) (1.4-5.7) K/uL Lymph # (Auto) (0.6-2.4) K/uL [place] # (Auto) (0.0-0.8) K/uL Eos # (Auto) (0.0-0.7) K/uL Baso # (Auto) (0.0-0.1) K/uL Nucleated RBC % /100WBC Nucleated RBCs # K/uL APTT 46.7 H 60.3 H 53.1 H (18.6-31.3) SEC Sodium (136-148) mmol/L Potassium (3.5-5.1) mmol/L Chloride (98-107) mmol/L Carbon Dioxide (21.0-32.0) mmol/L BUN (7.0-18.0) mg/dL Creatinine (0.8-1.3) mg/dL Est Cr Clr Drug Dosing mL/min Estimated GFR (MDRD) ml/min Glucose (74-106) mg/dL Calcium (8.5-10.1) mg/dL Total Bilirubin (0.2-1.0) mg/dL AST (15-37) IU/L ALT (14-63) IU/L Alkaline Phosphatase (46-116) U/L Total Protein (6.4-8.2) g/dL Albumin (3.4-5.0) g/dL Globulin (2.6-4.0) g/dL Albumin/Globulin Ratio (0.9-1.6) 08/17/21 08/17/21 08/17/21 Range/Units 05:30 05:30 05:30 WBC 11.81 H (4.0-11.0) K/uL RBC 4.77 (4.50-5.90) M/uL Hgb 13.9 (13.0-17.0) g/dL Hct 40.4 (38.0-50.0) % MCV 84.7 (80.0-98.0) fL MCH 29.1 (27.0-32.0) pg MCHC 34.4 (31.0-37.0) g/dL RDW Std Deviation 38.6 (28.0-62.0) fl RDW Coeff of [place] 13 (11.0-15.0) % Plt Count 154 (150-400) K/uL MPV 9.70 (7.40-12.00) fL Neut % (Auto) 85.8 H (48.0-80.0) % Lymph % (Auto) 8.6 L (16.0-40.0) % [place] % (Auto) 5.1 (0.0-15.0) % Eos % (Auto) 0.3 (0.0-7.0) % Baso % (Auto) 0.2 (0.0-1.5) % Neut # (Auto) 10.1 H (1.4-5.7) K/uL Lymph # (Auto) 1.0 (0.6-2.4) K/uL [place] # (Auto) 0.6 (0.0-0.8) K/uL Eos # (Auto) 0.0 (0.0-0.7) K/uL Baso # (Auto) 0.0 (0.0-0.1) K/uL Nucleated RBC % 0.0 /100WBC Nucleated RBCs # 0 K/uL APTT 78.2 H (18.6-31.3) SEC Sodium 137 (136-148) mmol/L Potassium 4.7 (3.5-5.1) mmol/L Chloride 102 (98-107) mmol/L Carbon Dioxide 26.2 (21.0-32.0) mmol/L BUN 16 (7.0-18.0) mg/dL Creatinine 0.9 (0.8-1.3) mg/dL Est Cr Clr Drug Dosing 107.02 mL/min Estimated GFR (MDRD) > 60.0 ml/min Glucose 129 H (74-106) mg/dL Calcium 8.2 L (8.5-10.1) mg/dL Total Bilirubin 0.9 (0.2-1.0) mg/dL AST 39 H (15-37) IU/L ALT 81 H (14-63) IU/L Alkaline Phosphatase 90 (46-116) U/L Total Protein 6.2 L (6.4-8.2) g/dL Albumin 2.6 L (3.4-5.0) g/dL Globulin 3.6 (2.6-4.0) g/dL Albumin/Globulin Ratio 0.7 L (0.9-1.6) Result Diagrams: 08/17/21 05:30 08/17/21 05:30 Sepsis Event Note - Evaluation Sepsis Screening Result: No Definite Risk - Focused Exam Vital Signs: Vital Signs Temp Resp BP Pulse Ox 08/17/21 10:00 20 110/59 L 88 L 11/23/21 09:00 21 H 136/92 H 82 L 08/17/21 08:00 99.4 F 25 H 133/84 91 L 08/17/21 07:00 24 H 108/72 89 L 08/17/21 06:00 22 H 118/64 93 L 08/17/21 05:00 24 H 113/72 94 L 08/17/21 04:38 97.5 F 08/17/21 04:00 25 H 108/71 94 L 08/17/21 03:00 22 H 98/68 92 L 08/17/21 02:00 21 H 101/65 91 L 08/17/21 01:00 20 97/57 L 94 L 08/17/21 00:00 97.3 F 24 H 114/61 91 L - Problem List & Annotations (1) Pulmonary embolism SNOMED Code(s): 18993505 Code(s): I26.99 - OTHER PULMONARY EMBOLISM WITHOUT ACUTE COR PULMONALE Status: Acute Current Visit: Yes (2) Hypoxia SNOMED Code(s): 762802932 Code(s): R09.02 - HYPOXEMIA Status: Acute Current Visit: Yes (3) COVID-19 virus infection SNOMED Code(s): 822018199 Code(s): U07.1 - COVID-19 Status: Acute Current Visit: No - Problem List Review Problem List Initiated/Reviewed/Updated: Yes - Assessment Assessment:: 1. COVID-19 pneumonia -Continue the patient on dexamethasone 6 mg per oral route every 24 hours -Continue the patient on baricitinib 4 mg per oral route every 24 hours -For shortness of breath, the patient has Combivent on board -For cough and congestion the patient has Tessalon [place] 100 mg per oral route every 6 hours on board -For vomiting, the patient has Phenergan with codeine on board 2. Pulmonary embolism -Continue the patient on the heparin sodium drip, 25,000 units
[2021-08-17] MEDS: Heparin Sodium/0.45% NaCl 500 ML IV SCH (14:41)
[2021-08-17] MEDS: Dexamethasone 4 MG Tab PO SCH (16:43)
[2021-08-17] MEDS: Benzonatate 100 MG Cap PO PRN (16:43)
[2021-08-17] MEDS: Pantoprazole 40 MG Tab.CR PO SCH (20:48)
[2021-08-17] MEDS: Melatonin 3 MG Tab PO PRN (20:48)
[2021-08-18] MEDS: Codeine/Promethazine 10-6.25 MG/5 ML Syrup 5 ML UD Syringe PO SCH ×4 (00:03→17:51)
[2021-08-18 07:03] LABS: BLOOD UREA NITROGEN,BUN 19 mg/dL (7.0-18.0); CARBON DIOXIDE,CO2 27.6 mmol/L (21.0-32.0); CHLORIDE,CL 102 mmol/L (98-107); GLUCOSE RANDOM 136 mg/dL (74-106); POTASSIUM,K 4.4 mmol/L (3.5-5.1); SODIUM,NA 136 mmol/L (136-148)
[2021-08-18] MEDS: guaiFENesin/Dextromethorphan 100-10 MG/5 ML Soln 10 ML Cup PO PRN ×2 (09:50→21:30)
[2021-08-18] MEDS: Benzonatate 100 MG Cap PO PRN ×2 (09:50→15:50)
[2021-08-18] MEDS: Enoxaparin 100 MG/1 ML Syringe SUBCUT SCH ×2 (10:40→21:30)
--- NOTE | 2021-08-18 11:19 | PCM.PN ---
- General Info Date of Service: 08/18/21 Subjective Update: The patient is a 46-year-old male, on day 8 of service, who has no significant past medical history, who was admitted to the medical floor due to COVID-19 pneumonia and was found to have a pulmonary embolism. Upon interview with the patient today, he was sitting up in his chair and breathing much better and proclaimed his shortness of breath has significantly reduced. He is still coughing up clear sputum without any blood but admits that is improving as well. He is on Vapotherm with a flow rate of 50 and FiO2 of 60, and saturating at 94%. We had a discussion today in regards to his history of using CPAP regularly for snoring and sleeping issues during the day, and that he is used to using this apparatus. He feels his lungs are doing much better and that he should not be in the hospital much longer. He denies chest pain, palpitations, fever, irritability, and any issues with urination and/or defecation. He is eating and drinking his meals to completion. He has no other health concerns at this time. - Review of Systems General: Denies: Fever, Weakness, Fatigue HEENT: Denies: Headaches, Sore Throat Pulmonary: Reports: Shortness of Breath, Cough Cardiovascular: Denies: Chest Pain, Palpitations Gastrointestinal: Denies: Abdominal Pain, Nausea, Vomiting Genitourinary: Denies: Dysuria - Patient Data Vitals - Most Recent: Last Vital Signs Temp 97.5 F 08/18/21 04:00 Pulse 69 08/15/21 18:56 Resp 18 08/18/21 06:00 BP 112/77 08/18/21 06:00 Pulse Ox 94 L 08/18/21 06:00 Weight - Most Recent: 209 lb 10.554 oz I&O - Last 24 Hours: Intake & Output 08/17/21 08/18/21 08/18/21 22:59 06:59 14:59 Intake Total 1500 1200 Output Total 950 1950 Balance 550 -750 Lab Results Last 24 Hours: Laboratory Results - last 24 hr 08/17/21 08/17/21 08/17/21 Range/Units 12:50 17:48 23:45 WBC (4.0-11.0) K/uL RBC (4.50-5.90) M/uL Hgb (13.0-17.0) g/dL Hct (38.0-50.0) % MCV (80.0-98.0) fL MCH (27.0-32.0) pg MCHC (31.0-37.0) g/dL RDW Std Deviation (28.0-62.0) fl RDW Coeff of [place] (11.0-15.0) % Plt Count (150-400) K/uL MPV (7.40-12.00) fL Neut % (Auto) (48.0-80.0) % Lymph % (Auto) (16.0-40.0) % [place] % (Auto) (0.0-15.0) % Eos % (Auto) (0.0-7.0) % Baso % (Auto) (0.0-1.5) % Neut # (Auto) (1.4-5.7) K/uL Lymph # (Auto) (0.6-2.4) K/uL [place] # (Auto) (0.0-0.8) K/uL Eos # (Auto) (0.0-0.7) K/uL Baso # (Auto) (0.0-0.1) K/uL Nucleated RBC % /100WBC Nucleated RBCs # K/uL APTT 51.2 H 51.0 H 70.8 H (18.6-31.3) SEC Sodium (136-148) mmol/L Potassium (3.5-5.1) mmol/L Chloride (98-107) mmol/L Carbon Dioxide (21.0-32.0) mmol/L BUN (7.0-18.0) mg/dL Creatinine (0.8-1.3) mg/dL Est Cr Clr Drug Dosing mL/min Estimated GFR (MDRD) ml/min Glucose (74-106) mg/dL Calcium (8.5-10.1) mg/dL Total Bilirubin (0.2-1.0) mg/dL AST (15-37) IU/L ALT (14-63) IU/L Alkaline Phosphatase (46-116) U/L Total Protein (6.4-8.2) g/dL Albumin (3.4-5.0) g/dL Globulin (2.6-4.0) g/dL Albumin/Globulin Ratio (0.9-1.6) 08/18/21 08/18/21 08/18/21 Range/Units 06:20 06:20 06:20 WBC 11.02 H (4.0-11.0) K/uL RBC 4.65 (4.50-5.90) M/uL Hgb 13.7 (13.0-17.0) g/dL Hct 39.2 (38.0-50.0) % MCV 84.3 (80.0-98.0) fL MCH 29.5 (27.0-32.0) pg MCHC 34.9 (31.0-37.0) g/dL RDW Std Deviation 38.6 (28.0-62.0) fl RDW Coeff of [place] 13 (11.0-15.0) % Plt Count 181 (150-400) K/uL MPV 9.10 (7.40-12.00) fL Neut % (Auto) 87.7 H (48.0-80.0) % Lymph % (Auto) 7.2 L (16.0-40.0) % [place] % (Auto) 4.5 (0.0-15.0) % Eos % (Auto) 0.5 (0.0-7.0) % Baso % (Auto) 0.1 (0.0-1.5) % Neut # (Auto) 9.7 H (1.4-5.7) K/uL Lymph # (Auto) 0.8 (0.6-2.4) K/uL [place] # (Auto) 0.5 (0.0-0.8) K/uL Eos # (Auto) 0.1 (0.0-0.7) K/uL Baso # (Auto) 0.0 (0.0-0.1) K/uL Nucleated RBC % 0.0 /100WBC Nucleated RBCs # 0 K/uL APTT 68.4 H (18.6-31.3) SEC Sodium 136 (136-148) mmol/L Potassium 4.4 (3.5-5.1) mmol/L Chloride 102 (98-107) mmol/L Carbon Dioxide 27.6 (21.0-32.0) mmol/L BUN 19 H (7.0-18.0) mg/dL Creatinine 0.9 (0.8-1.3) mg/dL Est Cr Clr Drug Dosing 107.02 mL/min Estimated GFR (MDRD) > 60.0 ml/min Glucose 136 H (74-106) mg/dL Calcium 8.0 L (8.5-10.1) mg/dL Total Bilirubin 0.7 (0.2-1.0) mg/dL AST 44 H (15-37) IU/L ALT 70 H (14-63) IU/L Alkaline Phosphatase 86 (46-116) U/L Total Protein 6.8 (6.4-8.2) g/dL Albumin 2.4 L (3.4-5.0) g/dL Globulin 4.4 H (2.6-4.0) g/dL Albumin/Globulin Ratio 0.6 L (0.9-1.6) Med Orders - Current: Current Medications Albuterol/Ipratropium (Albuterol/Ipratropium 4 Gm Inhalation [place]) 0 gm INH Q4H PRN PRN Reason: Dyspnea Last Admin: 08/17/21 04:32 Dose: 1 puff Documented by: Baricitinib (Baricitinib 2 Mg Tab) 4 mg PO Q24H IAN Last Admin: 08/17/21 12:09 Dose: 4 mg Documented by: Benzonatate (Benzonatate 100 Mg Cap) 100 mg PO Q6H PRN PRN Reason: Cough Last Admin: 08/18/21 09:50 Dose: 100 mg Documented by: Dexamethasone (Dexamethasone 4 Mg Tab) 6 mg PO Q24H IAN Last Admin: 08/17/21 16:43 Dose: 6 mg Documented by: Enoxaparin Sodium (Enoxaparin 100 Mg/1 Ml Syringe) 100 mg SUBCUT Q12H IAN Last Admin: 08/18/21 10:40 Dose: 100 mg Documented by: Guaifenesin/Dextromethorphan (Guaifenesin/Dextromethorphan 100-10 Mg/5 Ml Soln 10 Ml Cup) 10 ml PO Q4H PRN PRN Reason: Cough Last Admin: 08/18/21 09:50 Dose: 10 ml Documented by: Lorazepam (Lorazepam 1 Mg Tab) 1 mg PO Q8H PRN PRN Reason: Anxiety Last Admin: 08/17/21 20:48 Dose: 1 mg Documented by: Melatonin (Melatonin 3 Mg Tab) 6 mg PO BEDTIME PRN PRN Reason: Insomnia Last Admin: 08/17/21 20:48 Dose: 6 mg Documented by: Pantoprazole Sodium (Pantoprazole 40 Mg Tab.Cr) 40 mg PO BEDTIME IAN Last Admin: 08/17/21 20:48 Dose: 40 mg Documented by: Promethazine HCl/Codeine (Codeine/Promethazine 10-6.25 Mg/5 Ml Syrup 5 Ml Ud Syringe) 5 ml PO Q6HR [facility] Last Admin: 08/18/21 05:55 Dose: 5 ml Documented by: Discontinued Medications Albuterol/Ipratropium (Albuterol/Ipratropium 3.0-0.5 Mg/3 Ml Neb Soln) 3 ml NEB ONETIME ONE Stop: 08/11/21 13:27 Last Admin: 08/11/21 14:00 Dose: 3 ml Documented by: Dexamethasone (Dexamethasone 10 Mg/Ml Sdv) 10 mg IVPUSH ONETIME ONE Stop: 08/11/21 16:21 Last Admin: 08/11/21 16:34 Dose: 10 mg Documented by: Enoxaparin Sodium (Enoxaparin 40 Mg/0.4 Ml Syringe) 40 mg SUBCUT Q24H [facility] Last Admin: 08/14/21 19:48 Dose: 40 mg Documented by: Heparin Sodium (Porcine) (Heparin Sodium 5,000 Units/Ml Vial) 7,200 units IVPUSH .BOLUS ONE Stop: 08/15/21 12:46 Last Admin: 08/15/21 12:42 Dose: 7,200 units Documented by: Heparin Sodium (Porcine) (Heparin Sodium 5,000 Units/Ml Vial) 1,500 units IVPUSH .BOLUS ONE Stop: 08/16/21 12:36 Last Admin: 08/16/21 12:49 Dose: 1,500 units Documented by: Sodium Chloride (Normal Saline) 1,000 mls @ 1,000 mls/hr IV .Bolus ONE Stop: 08/11/21 14:32 Last Admin: 08/11/21 13:59 Dose: 1,000 mls/hr Documented by: Remdesivir 200 mg/ Sodium (Chloride) 250 mls @ 250 mls/hr IV ONETIME ONE Stop: 08/11/21 16:39 Last Admin: 08/11/21 21:19 Dose: Not Given Documented by: Remdesivir 200 mg/ Sodium (Chloride) 250 mls @ 250 mls/hr IV ONETIME ONE Stop: 08/11/21 17:59 Last Admin: 08/11/21 19:53 Dose: 250 mls/hr Documented by: Remdesivir 100 mg/ Sodium (Chloride) 100 mls @ 100 mls/hr IV Q24H IAN Stop: 08/15/21 17:59 Last Admin: 08/15/21 16:35 Dose: 100 mls/hr Documented by: Heparin Sodium/Sodium Chloride (Heparin 25,000 Units In 1/2 Ns 500 Ml) 500 mls @ 26.671 mls/hr IV TITRATE IAN; Protocol Stop: 08/18/21 09:30 Last Titration: 08/18/21 09:40 Dose: 0 units/kg/hr, 0 mls/hr Documented by: Iopamidol (Iopamidol 755 Mg/Ml 500 Ml Multipack Bottle) 100 ml IVPUSH ONETIME ONE Stop: 08/15/21 10:46 Last Admin: 08/15/21 10:45 Dose: 100 ml Documented by: Potassium Chloride (Potassium Chloride 20 Meq Tab.Er) 40 meq PO ONETIME ONE Stop: 08/11/21 18:57 Last Admin: 08/11/21 19:51 Dose: 40 meq Documented by: - Exam General: Alert, Oriented, Cooperative HEENT: Mucous Membr. Moist/[place] Neck: Trachea Midline Lungs: Wheezing Cardiovascular: Bradycardia GI/Abdominal Exam: Normal Bowel Sounds, Soft, Non-Tender - Patient Data Lab Results Last 24 hrs: Laboratory Results - last 24 hr 08/17/21 08/17/21 08/17/21 Range/Units 12:50 17:48 23:45 WBC (4.0-11.0) K/uL RBC (4.50-5.90) M/uL Hgb (13.0-17.0) g/dL Hct (38.0-50.0) % MCV (80.0-98.0) fL MCH (27.0-32.0) pg MCHC (31.0-37.0) g/dL RDW Std Deviation (28.0-62.0) fl RDW Coeff of [place] (11.0-15.0) % Plt Count (150-400) K/uL MPV (7.40-12.00) fL Neut % (Auto) (48.0-80.0) % Lymph % (Auto) (16.0-40.0) % [place] % (Auto) (0.0-15.0) % Eos % (Auto) (0.0-7.0) % Baso % (Auto) (0.0-1.5) % Neut # (Auto) (1.4-5.7) K/uL Lymph # (Auto) (0.6-2.4) K/uL [place] # (Auto) (0.0-0.8) K/uL Eos # (Auto) (0.0-0.7) K/uL Baso # (Auto) (0.0-0.1) K/uL Nucleated RBC % /100WBC Nucleated RBCs # K/uL APTT 51.2 H 51.0 H 70.8 H (18.6-31.3) SEC Sodium (136-148) mmol/L Potassium (3.5-5.1) mmol/L Chloride (98-107) mmol/L Carbon Dioxide (21.0-32.0) mmol/L BUN (7.0-18.0) mg/dL Creatinine (0.8-1.3) mg/dL Est Cr Clr Drug Dosing mL/min Estimated GFR (MDRD) ml/min Glucose (74-106) mg/dL Calcium (8.5-10.1) mg/dL Total Bilirubin (0.2-1.0) mg/dL AST (15-37) IU/L ALT (14-63) IU/L Alkaline Phosphatase (46-116) U/L Total Protein (6.4-8.2) g/dL Albumin (3.4-5.0) g/dL Globulin (2.6-4.0) g/dL Albumin/Globulin Ratio (0.9-1.6) 08/18/21 08/18/21 08/18/21 Range/Units 06:20 06:20 06:20 WBC 11.02 H (4.0-11.0) K/uL RBC 4.65 (4.50-5.90) M/uL Hgb 13.7 (13.0-17.0) g/dL Hct 39.2 (38.0-50.0) % MCV 84.3 (80.0-98.0) fL MCH 29.5 (27.0-32.0) pg MCHC 34.9 (31.0-37.0) g/dL RDW Std Deviation 38.6 (28.0-62.0) fl RDW Coeff of [place] 13 (11.0-15.0) % Plt Count 181 (150-400) K/uL MPV 9.10 (7.40-12.00) fL Neut % (Auto) 87.7 H (48.0-80.0) % Lymph % (Auto) 7.2 L (16.0-40.0) % [place] % (Auto) 4.5 (0.0-15.0) % Eos % (Auto) 0.5 (0.0-7.0) % Baso % (Auto) 0.1 (0.0-1.5) % Neut # (Auto) 9.7 H (1.4-5.7) K/uL Lymph # (Auto) 0.8 (0.6-2.4) K/uL [place] # (Auto) 0.5 (0.0-0.8) K/uL Eos # (Auto) 0.1 (0.0-0.7) K/uL Baso # (Auto) 0.0 (0.0-0.1) K/uL Nucleated RBC % 0.0 /100WBC Nucleated RBCs # 0 K/uL APTT 68.4 H (18.6-31.3) SEC Sodium 136 (136-148) mmol/L Potassium 4.4 (3.5-5.1) mmol/L Chloride 102 (98-107) mmol/L Carbon Dioxide 27.6 (21.0-32.0) mmol/L BUN 19 H (7.0-18.0) mg/dL Creatinine 0.9 (0.8-1.3) mg/dL Est Cr Clr Drug Dosing 107.02 mL/min Estimated GFR (MDRD) > 60.0 ml/min Glucose 136 H (74-106) mg/dL Calcium 8.0 L (8.5-10.1) mg/dL Total Bilirubin 0.7 (0.2-1.0) mg/dL AST 44 H (15-37) IU/L ALT 70 H (14-63) IU/L Alkaline Phosphatase 86 (46-116) U/L Total Protein 6.8 (6.4-8.2) g/dL Albumin 2.4 L (3.4-5.0) g/dL Globulin 4.4 H (2.6-4.0) g/dL Albumin/Globulin Ratio 0.6 L (0.9-1.6) Result Diagrams: 08/18/21 06:20 08/18/21 06:20 Sepsis Event Note - Evaluation Sepsis Screening Result: No Definite Risk - Focused Exam Vital Signs: Vital Signs Temp Resp BP Pulse Ox 08/18/21 06:00 18 112/77 94 L 08/18/21 05:00 19 108/72 92 L 08/18/21 04:00 97.5 F 21 H 95/66 92 L 08/18/21 03:00 17 108/72 94 L 08/18/21 02:00 18 115/62 92 L 08/18/21 01:00 20 110/72 92 L 08/18/21 00:00 97.7 F 20 102/69 90 L - Problem List & Annotations (1) Pulmonary embolism SNOMED Code(s): 87213206 Code(s): I26.99 - OTHER PULMONARY EMBOLISM WITHOUT ACUTE COR PULMONALE Status: Acute Current Visit: Yes (2) Hypoxia SNOMED Code(s): 726428026 Code(s): R09.02 - HYPOXEMIA Status: Acute Current Visit: Yes (3) COVID-19 virus infection SNOMED Code(s): 372525985 Code(s): U07.1 - COVID-19 Status: Acute Current Visit: No - Problem List Review Problem List Initiated/Reviewed/Updated: Yes - Assessment Assessment:: 1. COVID-19 pneumonia -Continue the patient on dexamethasone -Continue the patient on baricitinib -For shortness of breath, the patient has Combivent on board -For cough and congestion the patient has Tessalon Perles on board -For vomiting, the patient has Phenergan with codeine on board 2. Pulmonary embolism -Continue the patient on the heparin sodium drip, 25,000 units
[2021-08-18] MEDS: Albuterol/Ipratropium 4 GM Inhalation Spray INH PRN ×2 (11:56→18:10)
--- NOTE | 2021-08-18 15:44 | PN ---
THC Physician - Brief Progress [id number]/24/2021 15:37[facility] Dustin rangel, [place] - MWN (SPEEDY) - MWN ICUADORE BLOOD, COVID+Date of Service 08/18/2021 15:37HPI/Ev ents of Note Patient is a 46-year-old admitted with Covid 19 pneumonia and ARDS. He has CTA positive for pulmonary emboli. He is on heated high flow 50 L 55 percent, receiving remdesivir, Decadron 6 m g daily and baricitinib. Still was on heparin drip which was to switch to Lovenox milligrams twice a dayPatient is seen [id number], discussed with bedside RNWould recommend checking anti Xa level since the Lovenox dose is on high endPlease excuse any mistakes in syntax and contextual errors santos t this report may contain, as it is created by sr. merchandise planner softwareInterventions Intermediate-Other : COVID-19 pneumonia, Covid associated thromboembolusElectronically Signed by: ANTONIO ORDAZ) on 15:43
[2021-08-18] MEDS: Dexamethasone 4 MG Tab PO SCH (15:50)
[2021-08-18] MEDS: Melatonin 3 MG Tab PO PRN (21:30)
[2021-08-18] MEDS: Pantoprazole 40 MG Tab.CR PO SCH (21:30)
[2021-08-18] MEDS: LORazepam 1 MG Tab PO PRN (21:30)
[2021-08-19] MEDS: Codeine/Promethazine 10-6.25 MG/5 ML Syrup 5 ML UD Syringe PO SCH ×4 (00:30→17:46)
[2021-08-19] MEDS: guaiFENesin/Dextromethorphan 100-10 MG/5 ML Soln 10 ML Cup PO PRN ×4 (03:46→20:53)
[2021-08-19 07:42] LABS: BLOOD UREA NITROGEN,BUN 18 mg/dL (7.0-18.0); CARBON DIOXIDE,CO2 24.3 mmol/L (21.0-32.0); CHLORIDE,CL 101 mmol/L (98-107); GLUCOSE RANDOM 147 mg/dL (74-106); POTASSIUM,K 4.3 mmol/L (3.5-5.1); SODIUM,NA 134 mmol/L (136-148)
[2021-08-19] MEDS: Enoxaparin 100 MG/1 ML Syringe SUBCUT SCH ×2 (08:58→20:53)
[2021-08-19] MEDS: Benzonatate 100 MG Cap PO PRN ×2 (08:59→15:51)
[2021-08-19] MEDS: Albuterol/Ipratropium 4 GM Inhalation Spray INH PRN ×2 (09:00→15:51)
--- NOTE | 2021-08-19 10:46 | PN ---
THC Physician - Brief Progress [id number]/25/2021 10:40[facility] Dustin Betancourt, [place] - LULÚN (SPEEDY) - KEN ICUADORE BLOOD, COVID+Date of Service 08/19/2021 10:40HPI/Ev ents of Note eICU Admission [id number] male being managed for severe COVID-19 pneumonia complica evelyn by bilateral PE. Continues to be on heated high flow nasal cannula 55% FiO2. Saturations on mon itor 87%. Patient is sitting in bed, eating his phone and appears to be in no distress.ReviewedVital sEMR notesLabsAvailable imagingMedicationseICU impressionsAcute hypoxemic respiratory failureCOVID-19 pneumoniaAcute bilateral PEQI measureseICU Recommendations:Continue supplemental oxygen via heated h igh flow nasal cannula and/or noninvasive ventilation as needed to maintain saturation of 90 to 94%Se lf proning as tolerated or neededMaintain euvolemia to net negative volume statusComplete course of s ystemic steroids and baricitinibTherapeutic dose Lovenox for acute pulmonary embolus at 1 mg/mg twice dailyGI prophylaxis noted with PPIGlycemic control per protocol, blood pressure target 140-180Thank you for allowing us to participate in the care of your patient. Critical care; 15 minutes total evalu ation time Interventions Major-Hypoxemia - evaluation and management, Infection - evaluation and julio gement, Respiratory failure - evaluation and management
--- NOTE | 2021-08-19 11:12 | PCM.PN ---
- General Info Date of Service: 08/19/21 Subjective Update: The patient is a 46-year-old male, on day 9 of service, who has no significant past medical history, who was admitted to the medical floor due to COVID-19 pneumonia and was found to have bilateral pulmonary emboli. Upon interview with the patient today, he admits that he feels much better with respect to his shortness of breath and cough but still is experiencing both. He proclaims that he slept very well and feels rested. He is still on heated high flow, O2 flow rate of 50 and FiO2 of 55, and is saturating over 90%. The eICU doctors also evaluated this patient and have left documentation in his chart. He denies chest pain, palpitations, abdominal pain, fever, nausea, vomiting, and any issues with urination and/or defecation. The patient has no other health complaints at this time. - Review of Systems General: Denies: Fever, Weakness, Fatigue HEENT: Denies: Headaches, Sore Throat Pulmonary: Reports: Shortness of Breath, Cough Cardiovascular: Denies: Chest Pain, Palpitations Gastrointestinal: Denies: Abdominal Pain Genitourinary: Denies: Dysuria - Patient Data Vitals - Most Recent: Last Vital Signs Temp 97 F 08/19/21 08:00 Pulse 69 08/15/21 18:56 Resp 23 H 08/19/21 10:00 BP 95/61 08/19/21 10:00 Pulse Ox 91 L 08/19/21 10:00 Weight - Most Recent: 207 lb 14.334 oz I&O - Last 24 Hours: Intake & Output 08/18/21 08/19/21 08/19/21 22:59 06:59 14:59 Intake Total 2440 500 Output Total 2550 975 Balance -110 -475 Lab Results Last 24 Hours: Laboratory Results - last 24 hr 08/19/21 08/19/21 Range/Units 06:30 06:30 WBC 11.26 H (4.0-11.0) K/uL RBC 4.54 (4.50-5.90) M/uL Hgb 13.5 (13.0-17.0) g/dL Hct 38.2 (38.0-50.0) % MCV 84.1 (80.0-98.0) fL MCH 29.7 (27.0-32.0) pg MCHC 35.3 (31.0-37.0) g/dL RDW Std Deviation 38.6 (28.0-62.0) fl RDW Coeff of Mason 13 (11.0-15.0) % Plt Count 179 (150-400) K/uL MPV 10.10 (7.40-12.00) fL Add Manual Diff YES Neutrophils % (Manual) 87 H (48.0-80.0) % Band Neutrophils % 1 % Lymphocytes % (Manual) 7 L (16.0-40.0) % Monocytes % (Manual) 5 (0.0-15.0) % Nucleated RBC % 0.0 /100WBC Absolute Seg Neuts 9.8 H (1.4-5.7) Band Neutrophils # 0.1 Lymphocytes # (Manual) 0.8 (0.6-2.4) Monocytes # (Manual) 0.6 (0.0-0.8) Nucleated RBCs # 0 K/uL Sodium 134 L (136-148) mmol/L Potassium 4.3 (3.5-5.1) mmol/L Chloride 101 (98-107) mmol/L Carbon Dioxide 24.3 (21.0-32.0) mmol/L BUN 18 (7.0-18.0) mg/dL Creatinine 0.9 (0.8-1.3) mg/dL Est Cr Clr Drug Dosing 107.02 mL/min Estimated GFR (MDRD) > 60.0 ml/min Glucose 147 H (74-106) mg/dL Calcium 7.9 L (8.5-10.1) mg/dL Total Bilirubin 0.8 (0.2-1.0) mg/dL AST 48 H (15-37) IU/L ALT 67 H (14-63) IU/L Alkaline Phosphatase 88 (46-116) U/L Total Protein 6.8 (6.4-8.2) g/dL Albumin 2.3 L (3.4-5.0) g/dL Globulin 4.5 H (2.6-4.0) g/dL Albumin/Globulin Ratio 0.5 L (0.9-1.6) Med Orders - Current: Current Medications Albuterol/Ipratropium (Albuterol/Ipratropium 4 Gm Inhalation [place]) 0 gm INH Q4H PRN PRN Reason: Dyspnea Last Admin: 08/19/21 09:00 Dose: 1 puff Documented by: Baricitinib (Baricitinib 2 Mg Tab) 4 mg PO Q24H IAN Last Admin: 08/18/21 11:51 Dose: 4 mg Documented by: Benzonatate (Benzonatate 100 Mg Cap) 100 mg PO Q6H PRN PRN Reason: Cough Last Admin: 08/19/21 08:59 Dose: 100 mg Documented by: Dexamethasone (Dexamethasone 4 Mg Tab) 6 mg PO Q24H IAN Last Admin: 08/18/21 15:50 Dose: 6 mg Documented by: Enoxaparin Sodium (Enoxaparin 100 Mg/1 Ml Syringe) 100 mg SUBCUT Q12H IAN Last Admin: 08/19/21 08:58 Dose: 100 mg Documented by: Guaifenesin/Dextromethorphan (Guaifenesin/Dextromethorphan 100-10 Mg/5 Ml Soln 10 Ml Cup) 10 ml PO Q4H PRN PRN Reason: Cough Last Admin: 08/19/21 08:58 Dose: 10 ml Documented by: Lorazepam (Lorazepam 1 Mg Tab) 1 mg PO Q8H PRN PRN Reason: Anxiety Last Admin: 08/18/21 21:30 Dose: 1 mg Documented by: Melatonin (Melatonin 3 Mg Tab) 6 mg PO BEDTIME PRN PRN Reason: Insomnia Last Admin: 08/18/21 21:30 Dose: 6 mg Documented by: Pantoprazole Sodium (Pantoprazole 40 Mg Tab.Cr) 40 mg PO BEDTIME IAN Last Admin: 08/18/21 21:30 Dose: 40 mg Documented by: Promethazine HCl/Codeine (Codeine/Promethazine 10-6.25 Mg/5 Ml Syrup 5 Ml Ud Syringe) 5 ml PO Q6HR IAN Last Admin: 08/19/21 05:40 Dose: 5 ml Documented by: Discontinued Medications Albuterol/Ipratropium (Albuterol/Ipratropium 3.0-0.5 Mg/3 Ml Neb Soln) 3 ml NEB ONETIME ONE Stop: 08/11/21 13:27 Last Admin: 08/11/21 14:00 Dose: 3 ml Documented by: Dexamethasone (Dexamethasone 10 Mg/Ml Sdv) 10 mg IVPUSH ONETIME ONE Stop: 08/11/21 16:21 Last Admin: 08/11/21 16:34 Dose: 10 mg Documented by: Enoxaparin Sodium (Enoxaparin 40 Mg/0.4 Ml Syringe) 40 mg SUBCUT Q24H IAN Last Admin: 08/14/21 19:48 Dose: 40 mg Documented by: Heparin Sodium (Porcine) (Heparin Sodium 5,000 Units/Ml Vial) 7,200 units IVPUSH .BOLUS ONE Stop: 08/15/21 12:46 Last Admin: 08/15/21 12:42 Dose: 7,200 units Documented by: Heparin Sodium (Porcine) (Heparin Sodium 5,000 Units/Ml Vial) 1,500 units IVPUSH .BOLUS ONE Stop: 08/16/21 12:36 Last Admin: 08/16/21 12:49 Dose: 1,500 units Documented by: Sodium Chloride (Normal Saline) 1,000 mls @ 1,000 mls/hr IV .Bolus ONE Stop: 08/11/21 14:32 Last Admin: 08/11/21 13:59 Dose: 1,000 mls/hr Documented by: Remdesivir 200 mg/ Sodium (Chloride) 250 mls @ 250 mls/hr IV ONETIME ONE Stop: 08/11/21 16:39 Last Admin: 08/11/21 21:19 Dose: Not Given Documented by: Remdesivir 200 mg/ Sodium (Chloride) 250 mls @ 250 mls/hr IV ONETIME ONE Stop: 08/11/21 17:59 Last Admin: 08/11/21 19:53 Dose: 250 mls/hr Documented by: Remdesivir 100 mg/ Sodium (Chloride) 100 mls @ 100 mls/hr IV Q24H IAN Stop: 08/15/21 17:59 Last Admin: 08/15/21 16:35 Dose: 100 mls/hr Documented by: Heparin Sodium/Sodium Chloride (Heparin 25,000 Units In 1/2 Ns 500 Ml) 500 mls @ 26.671 mls/hr IV TITRATE IAN; Protocol Stop: 08/18/21 09:30 Last Titration: 08/18/21 09:40 Dose: 0 units/kg/hr, 0 mls/hr Documented by: Iopamidol (Iopamidol 755 Mg/Ml 500 Ml Multipack Bottle) 100 ml IVPUSH ONETIME ONE Stop: 08/15/21 10:46 Last Admin: 08/15/21 10:45 Dose: 100 ml Documented by: Potassium Chloride (Potassium Chloride 20 Meq Tab.Er) 40 meq PO ONETIME ONE Stop: 08/11/21 18:57 Last Admin: 08/11/21 19:51 Dose: 40 meq Documented by: - Exam General: Alert, Oriented, Cooperative HEENT: Mucous Membr. Moist/[place] Neck: Trachea Midline Lungs: Wheezing Cardiovascular: Regular Rate, Regular Rhythm GI/Abdominal Exam: Normal Bowel Sounds, Soft, Non-Tender - Patient Data Lab Results Last 24 hrs: Laboratory Results - last 24 hr 08/19/21 08/19/21 Range/Units 06:30 06:30 WBC 11.26 H (4.0-11.0) K/uL RBC 4.54 (4.50-5.90) M/uL Hgb 13.5 (13.0-17.0) g/dL Hct 38.2 (38.0-50.0) % MCV 84.1 (80.0-98.0) fL MCH 29.7 (27.0-32.0) pg MCHC 35.3 (31.0-37.0) g/dL RDW Std Deviation 38.6 (28.0-62.0) fl RDW Coeff of Mason 13 (11.0-15.0) % Plt Count 179 (150-400) K/uL MPV 10.10 (7.40-12.00) fL Add Manual Diff YES Neutrophils % (Manual) 87 H (48.0-80.0) % Band Neutrophils % 1 % Lymphocytes % (Manual) 7 L (16.0-40.0) % Monocytes % (Manual) 5 (0.0-15.0) % Nucleated RBC % 0.0 /100WBC Absolute Seg Neuts 9.8 H (1.4-5.7) Band Neutrophils # 0.1 Lymphocytes # (Manual) 0.8 (0.6-2.4) Monocytes # (Manual) 0.6 (0.0-0.8) Nucleated RBCs # 0 K/uL Sodium 134 L (136-148) mmol/L Potassium 4.3 (3.5-5.1) mmol/L Chloride 101 (98-107) mmol/L Carbon Dioxide 24.3 (21.0-32.0) mmol/L BUN 18 (7.0-18.0) mg/dL Creatinine 0.9 (0.8-1.3) mg/dL Est Cr Clr Drug Dosing 107.02 mL/min Estimated GFR (MDRD) > 60.0 ml/min Glucose 147 H (74-106) mg/dL Calcium 7.9 L (8.5-10.1) mg/dL Total Bilirubin 0.8 (0.2-1.0) mg/dL AST 48 H (15-37) IU/L ALT 67 H (14-63) IU/L Alkaline Phosphatase 88 (46-116) U/L Total Protein 6.8 (6.4-8.2) g/dL Albumin 2.3 L (3.4-5.0) g/dL Globulin 4.5 H (2.6-4.0) g/dL Albumin/Globulin Ratio 0.5 L (0.9-1.6) Result Diagrams: 08/19/21 06:30 08/19/21 06:30 Sepsis Event Note - Evaluation Sepsis Screening Result: No Definite Risk - Focused Exam Vital Signs: Vital Signs Temp Resp BP Pulse Ox 08/19/21 10:00 23 H 95/61 91 L 08/19/21 09:00 21 H 97/61 89 L 08/19/21 08:00 97 F 18 108/70 89 L 08/19/21 07:00 18 103/68 90 L 08/19/21 06:00 20 111/72 91 L 08/19/21 05:00 17 104/75 91 L 08/19/21 04:00 97.2 F 22 H 97/59 L 92 L 08/19/21 03:00 22 H 94/57 L 91 L 08/19/21 02:00 20 92/57 L 93 L 08/19/21 01:00 20 93/51 L 93 L 08/19/21 00:30 97.3 F 20 94/58 L 93 L - Problem List & Annotations (1) Pulmonary embolism SNOMED Code(s): 65919171 Code(s): I26.99 - OTHER PULMONARY EMBOLISM WITHOUT ACUTE COR PULMONALE Status: Acute Current Visit: Yes (2) Hypoxia SNOMED Code(s): 786173320 Code(s): R09.02 - HYPOXEMIA Status: Acute Current Visit: Yes (3) COVID-19 virus infection SNOMED Code(s): 224805984 Code(s): U07.1 - COVID-19 Status: Acute Current Visit: No - Problem List Review Problem List Initiated/Reviewed/Updated: Yes - My Orders Last 24 Hours: My Active Orders 08/20/21 05:11 CBC WITH AUTO DIFF [HEME] AM CMP [COMPREHENSIVE METABOLIC PN,CMP] [CHEM] AM 08/21/21 05:11 CBC WITH AUTO DIFF [HEME] AM CMP [COMPREHENSIVE METABOLIC PN,CMP] [CHEM] AM - Assessment Assessment:: 1. COVID-19 pneumonia -Continue dexamethasone -Continue baricitinib -For shortness of breath, continue Combivent -For cough and congestion, continue Tessalon Perles 2. Bilateral pulmonary emboli -Continue heparin sodium drip, 25,000 units
[2021-08-19] MEDS: Dexamethasone 4 MG Tab PO SCH (15:50)
[2021-08-19] MEDS: Pantoprazole 40 MG Tab.CR PO SCH (20:52)
[2021-08-19] MEDS: Melatonin 3 MG Tab PO PRN (20:52)
[2021-08-19] MEDS: LORazepam 1 MG Tab PO PRN (20:52)
[2021-08-20] MEDS: Codeine/Promethazine 10-6.25 MG/5 ML Syrup 5 ML UD Syringe PO SCH ×4 (00:15→18:02)
[2021-08-20 06:54] LABS: BLOOD UREA NITROGEN,BUN 18 mg/dL (7.0-18.0); CHLORIDE,CL 99 mmol/L (98-107); GLUCOSE RANDOM 139 mg/dL (74-106); POTASSIUM,K 4.2 mmol/L (3.5-5.1); SODIUM,NA 134 mmol/L (136-148)
[2021-08-20] MEDS: guaiFENesin/Dextromethorphan 100-10 MG/5 ML Soln 10 ML Cup PO PRN ×2 (09:09→20:45)
[2021-08-20] MEDS: Benzonatate 100 MG Cap PO PRN (09:09)
[2021-08-20] MEDS: Enoxaparin 100 MG/1 ML Syringe SUBCUT SCH ×2 (09:09→20:45)
[2021-08-20] MEDS: Albuterol/Ipratropium 4 GM Inhalation Spray INH PRN (09:10)
--- NOTE | 2021-08-20 11:50 | PCM.PN ---
<Tracy Guerrero - Last Filed: 08/20/21 11:44> - General Info Date of Service: 08/20/21 Subjective Update: The patient is a 46-year-old male, on day 10 of service, who has no significant past medical history, who was admitted to the medical floor due to COVID-19 pneumonia and was found to have bilateral pulmonary emboli. Upon interview with the patient today, he still has shortness of breath and cough but admits it is much improved. He feels he is good enough to go home however discussion was made about how oxygen demand must be between 1 to 2 L before a patient can be sent home on oxygen. He is currently on heated high flow but attempts will be made to have the patient breathe off the wall to see if he has improved. He agrees with this plan. Currently he is on HHF, an O2 flow rate of 45 and FiO2 of 55, and is saturating over 90%. The patient is sitting up and eating his meals to completion and has a healthy appetite. He denies chest pain, palpitations, nausea, vomiting, fever, abdominal pain, and has no issues with urination and/or defecation. He has no other health concerns at this time. - Review of Systems General: Denies: Fever, Weakness, Fatigue HEENT: Denies: Headaches, Sore Throat Pulmonary: Reports: Shortness of Breath, Cough Cardiovascular: Denies: Chest Pain, Palpitations Gastrointestinal: Denies: Abdominal Pain Genitourinary: Denies: Dysuria - Patient Data Vitals - Most Recent: Last Vital Signs Temp 96.5 F L 08/20/21 08:00 Pulse 69 08/15/21 18:56 Resp 24 H 08/20/21 10:00 BP 97/43 L 08/20/21 10:00 Pulse Ox 90 L 08/20/21 10:00 Weight - Most Recent: 178 lb 9.191 oz I&O - Last 24 Hours: Intake & Output 08/19/21 08/20/21 08/20/21 22:59 06:59 14:59 Intake Total 1300 Output Total 1100 Balance 200 Lab Results Last 24 Hours: Laboratory Results - last 24 hr 08/20/21 08/20/21 Range/Units 05:49 05:49 WBC 10.86 (4.0-11.0) K/uL RBC 4.63 (4.50-5.90) M/uL Hgb 13.5 (13.0-17.0) g/dL Hct 38.8 (38.0-50.0) % MCV 83.8 (80.0-98.0) fL MCH 29.2 (27.0-32.0) pg MCHC 34.8 (31.0-37.0) g/dL RDW Std Deviation 39.2 (28.0-62.0) fl RDW Coeff of Mason 13 (11.0-15.0) % Plt Count 194 (150-400) K/uL MPV 9.80 (7.40-12.00) fL Neut % (Auto) 88.9 H (48.0-80.0) % Lymph % (Auto) 5.9 L (16.0-40.0) % [place] % (Auto) 4.6 (0.0-15.0) % Eos % (Auto) 0.5 (0.0-7.0) % Baso % (Auto) 0.1 (0.0-1.5) % Neut # (Auto) 9.7 H (1.4-5.7) K/uL Lymph # (Auto) 0.6 (0.6-2.4) K/uL [place] # (Auto) 0.5 (0.0-0.8) K/uL Eos # (Auto) 0.1 (0.0-0.7) K/uL Baso # (Auto) 0.0 (0.0-0.1) K/uL Nucleated RBC % 0.0 /100WBC Nucleated RBCs # 0 K/uL Sodium 134 L (136-148) mmol/L Potassium 4.2 (3.5-5.1) mmol/L Chloride 99 (98-107) mmol/L Carbon Dioxide 26.0 (21.0-32.0) mmol/L BUN 18 (7.0-18.0) mg/dL Creatinine 0.9 (0.8-1.3) mg/dL Est Cr Clr Drug Dosing 107.02 mL/min Estimated GFR (MDRD) > 60.0 ml/min Glucose 139 H (74-106) mg/dL Calcium 8.1 L (8.5-10.1) mg/dL Total Bilirubin 0.7 (0.2-1.0) mg/dL AST 35 (15-37) IU/L ALT 57 (14-63) IU/L Alkaline Phosphatase 83 (46-116) U/L Total Protein 6.7 (6.4-8.2) g/dL Albumin 2.3 L (3.4-5.0) g/dL Globulin 4.4 H (2.6-4.0) g/dL Albumin/Globulin Ratio 0.5 L (0.9-1.6) Med Orders - Current: Current Medications Albuterol/Ipratropium (Albuterol/Ipratropium 4 Gm Inhalation [place]) 0 gm INH Q4H PRN PRN Reason: Dyspnea Last Admin: 08/20/21 09:10 Dose: 1 puff Documented by: Baricitinib (Baricitinib 2 Mg Tab) 4 mg PO Q24H [facility] Last Admin: 08/20/21 11:27 Dose: 4 mg Documented by: Benzonatate (Benzonatate 100 Mg Cap) 100 mg PO Q6H PRN PRN Reason: Cough Last Admin: 08/20/21 09:09 Dose: 100 mg Documented by: Dexamethasone (Dexamethasone 4 Mg Tab) 6 mg PO Q24H IAN Last Admin: 08/19/21 15:50 Dose: 6 mg Documented by: Enoxaparin Sodium (Enoxaparin 100 Mg/1 Ml Syringe) 100 mg SUBCUT Q12H [facility] Last Admin: 08/20/21 09:09 Dose: 100 mg Documented by: Guaifenesin/Dextromethorphan (Guaifenesin/Dextromethorphan 100-10 Mg/5 Ml Soln 10 Ml Cup) 10 ml PO Q4H PRN PRN Reason: Cough Last Admin: 08/20/21 09:09 Dose: 10 ml Documented by: Lorazepam (Lorazepam 1 Mg Tab) 1 mg PO Q8H PRN PRN Reason: Anxiety Last Admin: 08/19/21 20:52 Dose: 1 mg Documented by: Melatonin (Melatonin 3 Mg Tab) 6 mg PO BEDTIME PRN PRN Reason: Insomnia Last Admin: 08/19/21 20:52 Dose: 6 mg Documented by: Pantoprazole Sodium (Pantoprazole 40 Mg Tab.Cr) 40 mg PO BEDTIME IAN Last Admin: 08/19/21 20:52 Dose: 40 mg Documented by: Promethazine HCl/Codeine (Codeine/Promethazine 10-6.25 Mg/5 Ml Syrup 5 Ml Ud Syringe) 5 ml PO Q6HR IAN Last Admin: 08/20/21 11:27 Dose: 5 ml Documented by: Discontinued Medications Albuterol/Ipratropium (Albuterol/Ipratropium 3.0-0.5 Mg/3 Ml Neb Soln) 3 ml NEB ONETIME ONE Stop: 08/11/21 13:27 Last Admin: 08/11/21 14:00 Dose: 3 ml Documented by: Dexamethasone (Dexamethasone 10 Mg/Ml Sdv) 10 mg IVPUSH ONETIME ONE Stop: 08/11/21 16:21 Last Admin: 08/11/21 16:34 Dose: 10 mg Documented by: Enoxaparin Sodium (Enoxaparin 40 Mg/0.4 Ml Syringe) 40 mg SUBCUT Q24H IAN Last Admin: 08/14/21 19:48 Dose: 40 mg Documented by: Heparin Sodium (Porcine) (Heparin Sodium 5,000 Units/Ml Vial) 7,200 units IVPUSH .BOLUS ONE Stop: 08/15/21 12:46 Last Admin: 08/15/21 12:42 Dose: 7,200 units Documented by: Heparin Sodium (Porcine) (Heparin Sodium 5,000 Units/Ml Vial) 1,500 units IVPUSH .BOLUS ONE Stop: 08/16/21 12:36 Last Admin: 08/16/21 12:49 Dose: 1,500 units Documented by: Sodium Chloride (Normal Saline) 1,000 mls @ 1,000 mls/hr IV .Bolus ONE Stop: 08/11/21 14:32 Last Admin: 08/11/21 13:59 Dose: 1,000 mls/hr Documented by: Remdesivir 200 mg/ Sodium (Chloride) 250 mls @ 250 mls/hr IV ONETIME ONE Stop: 08/11/21 16:39 Last Admin: 08/11/21 21:19 Dose: Not Given Documented by: Remdesivir 200 mg/ Sodium (Chloride) 250 mls @ 250 mls/hr IV ONETIME ONE Stop: 08/11/21 17:59 Last Admin: 08/11/21 19:53 Dose: 250 mls/hr Documented by: Remdesivir 100 mg/ Sodium (Chloride) 100 mls @ 100 mls/hr IV Q24H IAN Stop: 08/15/21 17:59 Last Admin: 08/15/21 16:35 Dose: 100 mls/hr Documented by: Heparin Sodium/Sodium Chloride (Heparin 25,000 Units In 1/2 Ns 500 Ml) 500 mls @ 26.671 mls/hr IV TITRATE IAN; Protocol Stop: 08/18/21 09:30 Last Titration: 08/18/21 09:40 Dose: 0 units/kg/hr, 0 mls/hr Documented by: Iopamidol (Iopamidol 755 Mg/Ml 500 Ml Multipack Bottle) 100 ml IVPUSH ONETIME ONE Stop: 08/15/21 10:46 Last Admin: 08/15/21 10:45 Dose: 100 ml Documented by: Potassium Chloride (Potassium Chloride 20 Meq Tab.Er) 40 meq PO ONETIME ONE Stop: 08/11/21 18:57 Last Admin: 08/11/21 19:51 Dose: 40 meq Documented by: - Exam General: Alert, Oriented, Cooperative HEENT: Mucous Membr. Moist/[place] Walk Neck: Trachea Midline Lungs: Clear to Auscultation, Other Cardiovascular: Regular Rate, Regular Rhythm GI/Abdominal Exam: Normal Bowel Sounds, Soft, Non-Tender - Patient Data Lab Results Last 24 hrs: Laboratory Results - last 24 hr 08/20/21 08/20/21 Range/Units 05:49 05:49 WBC 10.86 (4.0-11.0) K/uL RBC 4.63 (4.50-5.90) M/uL Hgb 13.5 (13.0-17.0) g/dL Hct 38.8 (38.0-50.0) % MCV 83.8 (80.0-98.0) fL MCH 29.2 (27.0-32.0) pg MCHC 34.8 (31.0-37.0) g/dL RDW Std Deviation 39.2 (28.0-62.0) fl RDW Coeff of Mason 13 (11.0-15.0) % Plt Count 194 (150-400) K/uL MPV 9.80 (7.40-12.00) fL Neut % (Auto) 88.9 H (48.0-80.0) % Lymph % (Auto) 5.9 L (16.0-40.0) % [place] % (Auto) 4.6 (0.0-15.0) % Eos % (Auto) 0.5 (0.0-7.0) % Baso % (Auto) 0.1 (0.0-1.5) % Neut # (Auto) 9.7 H (1.4-5.7) K/uL Lymph # (Auto) 0.6 (0.6-2.4) K/uL [place] # (Auto) 0.5 (0.0-0.8) K/uL Eos # (Auto) 0.1 (0.0-0.7) K/uL Baso # (Auto) 0.0 (0.0-0.1) K/uL Nucleated RBC % 0.0 /100WBC Nucleated RBCs # 0 K/uL Sodium 134 L (136-148) mmol/L Potassium 4.2 (3.5-5.1) mmol/L Chloride 99 (98-107) mmol/L Carbon Dioxide 26.0 (21.0-32.0) mmol/L BUN 18 (7.0-18.0) mg/dL Creatinine 0.9 (0.8-1.3) mg/dL Est Cr Clr Drug Dosing 107.02 mL/min Estimated GFR (MDRD) > 60.0 ml/min Glucose 139 H (74-106) mg/dL Calcium 8.1 L (8.5-10.1) mg/dL Total Bilirubin 0.7 (0.2-1.0) mg/dL AST 35 (15-37) IU/L ALT 57 (14-63) IU/L Alkaline Phosphatase 83 (46-116) U/L Total Protein 6.7 (6.4-8.2) g/dL Albumin 2.3 L (3.4-5.0) g/dL Globulin 4.4 H (2.6-4.0) g/dL Albumin/Globulin Ratio 0.5 L (0.9-1.6) Result Diagrams: 08/20/21 05:49 08/20/21 05:49 Sepsis Event Note - Evaluation Sepsis Screening Result: No Definite Risk - Focused Exam Vital Signs: Vital Signs Temp Resp BP Pulse Ox 08/20/21 10:00 24 H 97/43 L 90 L 08/20/21 09:00 17 112/73 89 L 08/20/21 08:00 96.5 F L 21 H 95/44 L 90 L 08/20/21 07:00 15 100/67 88 L 08/20/21 06:00 16 96/61 96 08/20/21 05:00 16 94/59 L 97 08/20/21 04:00 97 F 20 110/66 96 08/20/21 03:00 25 H 100/67 93 L 08/20/21 02:00 21 H 88/54 L 99 08/20/21 01:00 17 91/55 L 98 08/20/21 00:00 96.9 F 22 H 98/62 96 - Problem List & Annotations (1) Pulmonary embolism SNOMED Code(s): 53805784 Code(s): I26.99 - OTHER PULMONARY EMBOLISM WITHOUT ACUTE COR PULMONALE Status: Acute Current Visit: Yes (2) Hypoxia SNOMED Code(s): 107215376 Code(s): R09.02 - HYPOXEMIA Status: Acute Current Visit: Yes (3) COVID-19 virus infection SNOMED Code(s): 690457806 Code(s): U07.1 - COVID-19 Status: Acute Current Visit: No - Problem List Review Problem List Initiated/Reviewed/Updated: Yes - My Orders Last 24 Hours: My Active Orders 08/21/21 05:11 CBC WITH AUTO DIFF [HEME] AM CMP [COMPREHENSIVE METABOLIC PN,CMP] [CHEM] AM - Assessment Assessment:: 1. COVID-19 pneumonia -Continue dexamethasone and baricitinib per oral route -Ativan is now on board for anxiety -For shortness of breath, continue Combivent -For cough and congestion, continue Tessalon Perles -Wean oxygen as appropriate 2. Bilateral pulmonary emboli -Continue Lovenox subcutaneously <Varun Duarte - Last Filed: 08/20/21 15:27> - Patient Data Vitals - Most Recent: Last Vital Signs Temp 96.5 F L 08/20/21 08:00 Pulse 69 08/15/21 18:56 Resp 22 H 08/20/21 11:00 BP 112/70 08/20/21 11:00 Pulse Ox 90 L 08/20/21 11:00 Lab Results Last 24 Hours: Laboratory Results - last 24 hr 08/20/21 08/20/21 Range/Units 05:49 05:49 WBC 10.86 (4.0-11.0) K/uL RBC 4.63 (4.50-5.90) M/uL Hgb 13.5 (13.0-17.0) g/dL Hct 38.8 (38.0-50.0) % MCV 83.8 (80.0-98.0) fL MCH 29.2 (27.0-32.0) pg MCHC 34.8 (31.0-37.0) g/dL RDW Std Deviation 39.2 (28.0-62.0) fl RDW Coeff of Mason 13 (11.0-15.0) % Plt Count 194 (150-400) K/uL MPV 9.80 (7.40-12.00) fL Neut % (Auto) 88.9 H (48.0-80.0) % Lymph % (Auto) 5.9 L (16.0-40.0) % [place] % (Auto) 4.6 (0.0-15.0) % Eos % (Auto) 0.5 (0.0-7.0) % Baso % (Auto) 0.1 (0.0-1.5) % Neut # (Auto) 9.7 H (1.4-5.7) K/uL Lymph # (Auto) 0.6 (0.6-2.4) K/uL [place] # (Auto) 0.5 (0.0-0.8) K/uL Eos # (Auto) 0.1 (0.0-0.7) K/uL Baso # (Auto) 0.0 (0.0-0.1) K/uL Nucleated RBC % 0.0 /100WBC Nucleated RBCs # 0 K/uL Sodium 134 L (136-148) mmol/L Potassium 4.2 (3.5-5.1) mmol/L Chloride 99 (98-107) mmol/L Carbon Dioxide 26.0 (21.0-32.0) mmol/L BUN 18 (7.0-18.0) mg/dL Creatinine 0.9 (0.8-1.3) mg/dL Est Cr Clr Drug Dosing 107.02 mL/min Estimated GFR (MDRD) > 60.0 ml/min Glucose 139 H (74-106) mg/dL Calcium 8.1 L (8.5-10.1) mg/dL Total Bilirubin 0.7 (0.2-1.0) mg/dL AST 35 (15-37) IU/L ALT 57 (14-63) IU/L Alkaline Phosphatase 83 (46-116) U/L Total Protein 6.7 (6.4-8.2) g/dL Albumin 2.3 L (3.4-5.0) g/dL Globulin 4.4 H (2.6-4.0) g/dL Albumin/Globulin Ratio 0.5 L (0.9-1.6) Med Orders - Current: Current Medications Albuterol/Ipratropium (Albuterol/Ipratropium 4 Gm Inhalation [place]) 0 gm INH Q4H PRN PRN Reason: Dyspnea Last Admin: 08/20/21 09:10 Dose: 1 puff Documented by: Baricitinib (Baricitinib 2 Mg Tab) 4 mg PO Q24H [facility] Last Admin: 08/20/21 11:27 Dose: 4 mg Documented by: Benzonatate (Benzonatate 100 Mg Cap) 100 mg PO Q6H PRN PRN Reason: Cough Last Admin: 08/20/21 09:09 Dose: 100 mg Documented by: Dexamethasone (Dexamethasone 4 Mg Tab) 6 mg PO Q24H IAN Last Admin: 08/20/21 15:25 Dose: 6 mg Documented by: Enoxaparin Sodium (Enoxaparin 100 Mg/1 Ml Syringe) 100 mg SUBCUT Q12H [facility] Last Admin: 08/20/21 09:09 Dose: 100 mg Documented by: Guaifenesin/Dextromethorphan (Guaifenesin/Dextromethorphan 100-10 Mg/5 Ml Soln 10 Ml Cup) 10 ml PO Q4H PRN PRN Reason: Cough Last Admin: 08/20/21 09:09 Dose: 10 ml Documented by: Lorazepam (Lorazepam 1 Mg Tab) 1 mg PO Q8H PRN PRN Reason: Anxiety Last Admin: 08/19/21 20:52 Dose: 1 mg Documented by: Melatonin (Melatonin 3 Mg Tab) 6 mg PO BEDTIME PRN PRN Reason: Insomnia Last Admin: 08/19/21 20:52 Dose: 6 mg Documented by: Pantoprazole Sodium (Pantoprazole 40 Mg Tab.Cr) 40 mg PO BEDTIME [facility] Last Admin: 08/19/21 20:52 Dose: 40 mg Documented by: Promethazine HCl/Codeine (Codeine/Promethazine 10-6.25 Mg/5 Ml Syrup 5 Ml Ud Syringe) 5 ml PO Q6HR [facility] Last Admin: 08/20/21 11:27 Dose: 5 ml Documented by: Discontinued Medications Albuterol/Ipratropium (Albuterol/Ipratropium 3.0-0.5 Mg/3 Ml Neb Soln) 3 ml NEB ONETIME ONE Stop: 08/11/21 13:27 Last Admin: 08/11/21 14:00 Dose: 3 ml Documented by: Dexamethasone (Dexamethasone 10 Mg/Ml Sdv) 10 mg IVPUSH ONETIME ONE Stop: 08/11/21 16:21 Last Admin: 08/11/21 16:34 Dose: 10 mg Documented by: Enoxaparin Sodium (Enoxaparin 40 Mg/0.4 Ml Syringe) 40 mg SUBCUT Q24H [facility] Last Admin: 08/14/21 19:48 Dose: 40 mg Documented by: Heparin Sodium (Porcine) (Heparin Sodium 5,000 Units/Ml Vial) 7,200 units IVPUSH .BOLUS ONE Stop: 08/15/21 12:46 Last Admin: 08/15/21 12:42 Dose: 7,200 units Documented by: Heparin Sodium (Porcine) (Heparin Sodium 5,000 Units/Ml Vial) 1,500 units IVPUSH .BOLUS ONE Stop: 08/16/21 12:36 Last Admin: 08/16/21 12:49 Dose: 1,500 units Documented by: Sodium Chloride (Normal Saline) 1,000 mls @ 1,000 mls/hr IV .Bolus ONE Stop: 08/11/21 14:32 Last Admin: 08/11/21 13:59 Dose: 1,000 mls/hr Documented by: Remdesivir 200 mg/ Sodium (Chloride) 250 mls @ 250 mls/hr IV ONETIME ONE Stop: 08/11/21 16:39 Last Admin: 08/11/21 21:19 Dose: Not Given Documented by: Remdesivir 200 mg/ Sodium (Chloride) 250 mls @ 250 mls/hr IV ONETIME ONE Stop: 08/11/21 17:59 Last Admin: 08/11/21 19:53 Dose: 250 mls/hr Documented by: Remdesivir 100 mg/ Sodium (Chloride) 100 mls @ 100 mls/hr IV Q24H IAN Stop: 08/15/21 17:59 Last Admin: 08/15/21 16:35 Dose: 100 mls/hr Documented by: Heparin Sodium/Sodium Chloride (Heparin 25,000 Units In 1/2 Ns 500 Ml) 500 mls @ 26.671 mls/hr IV TITRATE IAN; Protocol Stop: 08/18/21 09:30 Last Titration: 08/18/21 09:40 Dose: 0 units/kg/hr, 0 mls/hr Documented by: Iopamidol (Iopamidol 755 Mg/Ml 500 Ml Multipack Bottle) 100 ml IVPUSH ONETIME ONE Stop: 08/15/21 10:46 Last Admin: 08/15/21 10:45 Dose: 100 ml Documented by: Potassium Chloride (Potassium Chloride 20 Meq Tab.Er) 40 meq PO ONETIME ONE Stop: 08/11/21 18:57 Last Admin: 08/11/21 19:51 Dose: 40 meq Documented by: - Patient Data Lab Results Last 24 hrs: Laboratory Results - last 24 hr 08/20/21 08/20/21 Range/Units 05:49 05:49 WBC 10.86 (4.0-11.0) K/uL RBC 4.63 (4.50-5.90) M/uL Hgb 13.5 (13.0-17.0) g/dL Hct 38.8 (38.0-50.0) % MCV 83.8 (80.0-98.0) fL MCH 29.2 (27.0-32.0) pg MCHC 34.8 (31.0-37.0) g/dL RDW Std Deviation 39.2 (28.0-62.0) fl RDW Coeff of [place] 13 (11.0-15.0) % Plt Count 194 (150-400) K/uL MPV 9.80 (7.40-12.00) fL Neut % (Auto) 88.9 H (48.0-80.0) % Lymph % (Auto) 5.9 L (16.0-40.0) % [place] % (Auto) 4.6 (0.0-15.0) % Eos % (Auto) 0.5 (0.0-7.0) % Baso % (Auto) 0.1 (0.0-1.5) % Neut # (Auto) 9.7 H (1.4-5.7) K/uL Lymph # (Auto) 0.6 (0.6-2.4) K/uL [place] # (Auto) 0.5 (0.0-0.8) K/uL Eos # (Auto) 0.1 (0.0-0.7) K/uL Baso # (Auto) 0.0 (0.0-0.1) K/uL Nucleated RBC % 0.0 /100WBC Nucleated RBCs # 0 K/uL Sodium 134 L (136-148) mmol/L Potassium 4.2 (3.5-5.1) mmol/L Chloride 99 (98-107) mmol/L Carbon Dioxide 26.0 (21.0-32.0) mmol/L BUN 18 (7.0-18.0) mg/dL Creatinine 0.9 (0.8-1.3) mg/dL Est Cr Clr Drug Dosing 107.02 mL/min Estimated GFR (MDRD) > 60.0 ml/min Glucose 139 H (74-106) mg/dL Calcium 8.1 L (8.5-10.1) mg/dL Total Bilirubin 0.7 (0.2-1.0) mg/dL AST 35 (15-37) IU/L ALT 57 (14-63) IU/L Alkaline Phosphatase 83 (46-116) U/L Total Protein 6.7 (6.4-8.2) g/dL Albumin 2.3 L (3.4-5.0) g/dL Globulin 4.4 H (2.6-4.0) g/dL Albumin/Globulin Ratio 0.5 L (0.9-1.6) Result Diagrams: 08/20/21 05:49 08/20/21 05:49 Sepsis Event Note - Focused Exam Vital Signs: Vital Signs Temp Resp BP Pulse Ox 08/20/21 11:00 22 H 112/70 90 L 08/20/21 10:00 24 H 97/43 L 90 L 08/20/21 09:00 17 112/73 89 L 08/20/21 08:00 96.5 F L 21 H 95/44 L 90 L 08/20/21 07:00 15 100/67 88 L 08/20/21 06:00 16 96/61 96 08/20/21 05:00 16 94/59 L 97 08/20/21 04:00 97 F 20 110/66 96 - Plan Plan:: I agree with the above assessment and plan.
[2021-08-20] MEDS: Dexamethasone 4 MG Tab PO SCH (15:25)
--- NOTE | 2021-08-20 17:16 | ECHO ---
EXAM DATE: 08/11/21 PATIENT'S AGE: 46 The ECHO report has been scanned into [facility] and can be seen in this patient's EMR (Electronic Medical Record) under the REPORTS section. The report has also been scanned into PACS. NATE
[2021-08-20] MEDS: LORazepam 1 MG Tab PO PRN (20:45)
[2021-08-20] MEDS: Pantoprazole 40 MG Tab.CR PO SCH (20:45)
[2021-08-20] MEDS: Melatonin 3 MG Tab PO PRN (20:46)
[2021-08-21] MEDS: Codeine/Promethazine 10-6.25 MG/5 ML Syrup 5 ML UD Syringe PO SCH ×5 (00:50→18:08)
[2021-08-21 06:28] LABS: BLOOD UREA NITROGEN,BUN 16 mg/dL (7.0-18.0); CARBON DIOXIDE,CO2 28.4 mmol/L (21.0-32.0); CHLORIDE,CL 101 mmol/L (98-107); GLUCOSE RANDOM 138 mg/dL (74-106); POTASSIUM,K 4.2 mmol/L (3.5-5.1); SODIUM,NA 138 mmol/L (136-148)
[2021-08-21] MEDS: Enoxaparin 100 MG/1 ML Syringe SUBCUT SCH ×2 (08:38→20:49)
--- NOTE | 2021-08-21 12:13 | PCM.PN ---
<Tracy Guerrero - Last Filed: 08/21/21 12:07> - General Info Date of Service: 08/21/21 Subjective Update: The patient is a 46-year-old male, on day 11 of service, who has no significant past medical history, who was admitted to the medical floor due to COVID-19 pneumonia and was found to have bilateral pulmonary emboli. Upon interview with the patient today, he continues to have productive cough characteristic of clear sputum devoid of any mucus or blood. He admits that his shortness of breath has drastically improved. This morning he was on CPAP with an FiO2 of 55 and saturating at 97%. This afternoon he went from heated high flow to high flow, more specifically 10 L off the wall and is tolerating it well. We will continue to downgrade and wean this patient off oxygen as em ropriate. If he continues with this trend he may be discharged in the next couple of days with the potential of home oxygen via [facility] and necessary home medications. He is eating and drinking his meals to completion and has a healthy appetite. He has no issues with urination and/or defecation. He has no other health concerns at this time. - Review of Systems General: Denies: Fever, Weakness, Fatigue HEENT: Denies: Headaches, Sore Throat Pulmonary: Reports: Shortness of Breath, Cough Cardiovascular: Denies: Chest Pain Gastrointestinal: Denies: Abdominal Pain Genitourinary: Denies: Dysuria - Patient Data Vitals - Most Recent: Last Vital Signs Temp 96.8 F L 08/21/21 08:00 Pulse 69 08/15/21 18:56 Resp 20 08/21/21 11:00 BP 95/68 08/21/21 10:00 Pulse Ox 92 L 08/21/21 11:00 Weight - Most Recent: 197 lb I&O - Last 24 Hours: Intake & Output 08/20/21 08/21/21 08/21/21 22:59 06:59 14:59 Intake Total 2360 1520 Output Total 1350 1625 Balance 1010 -105 Lab Results Last 24 Hours: Laboratory Results - last 24 hr 08/21/21 08/21/21 Range/Units 05:27 05:27 WBC 11.29 H (4.0-11.0) K/uL RBC 4.54 (4.50-5.90) M/uL Hgb 13.5 (13.0-17.0) g/dL Hct 38.2 (38.0-50.0) % MCV 84.1 (80.0-98.0) fL MCH 29.7 (27.0-32.0) pg MCHC 35.3 (31.0-37.0) g/dL RDW Std Deviation 38.8 (28.0-62.0) fl RDW Coeff of Mason 13 (11.0-15.0) % Plt Count 255 (150-400) K/uL MPV 8.80 (7.40-12.00) fL Neut % (Auto) 87.7 H (48.0-80.0) % Lymph % (Auto) 8.0 L (16.0-40.0) % Brantley % (Auto) 3.7 (0.0-15.0) % Eos % (Auto) 0.5 (0.0-7.0) % Baso % (Auto) 0.1 (0.0-1.5) % Neut # (Auto) 9.9 H (1.4-5.7) K/uL Lymph # (Auto) 0.9 (0.6-2.4) K/uL Brantley # (Auto) 0.4 (0.0-0.8) K/uL Eos # (Auto) 0.1 (0.0-0.7) K/uL Baso # (Auto) 0.0 (0.0-0.1) K/uL Nucleated RBC % 0.0 /100WBC Nucleated RBCs # 0 K/uL Sodium 138 (136-148) mmol/L Potassium 4.2 (3.5-5.1) mmol/L Chloride 101 (98-107) mmol/L Carbon Dioxide 28.4 (21.0-32.0) mmol/L BUN 16 (7.0-18.0) mg/dL Creatinine 0.9 (0.8-1.3) mg/dL Est Cr Clr Drug Dosing 107.02 mL/min Estimated GFR (MDRD) > 60.0 ml/min Glucose 138 H (74-106) mg/dL Calcium 8.0 L (8.5-10.1) mg/dL Total Bilirubin 0.6 (0.2-1.0) mg/dL AST 32 (15-37) IU/L ALT 54 (14-63) IU/L Alkaline Phosphatase 86 (46-116) U/L Total Protein 6.5 (6.4-8.2) g/dL Albumin 2.4 L (3.4-5.0) g/dL Globulin 4.1 H (2.6-4.0) g/dL Albumin/Globulin Ratio 0.6 L (0.9-1.6) Med Orders - Current: Current Medications Albuterol/Ipratropium (Albuterol/Ipratropium 4 Gm Inhalation [place]) 0 gm INH Q4H PRN PRN Reason: Dyspnea Last Admin: 08/20/21 09:10 Dose: 1 puff Documented by: Baricitinib (Baricitinib 2 Mg Tab) 4 mg PO Q24H [facility] Last Admin: 08/21/21 11:39 Dose: 4 mg Documented by: Benzonatate (Benzonatate 100 Mg Cap) 100 mg PO Q6H PRN PRN Reason: Cough Last Admin: 08/20/21 09:09 Dose: 100 mg Documented by: Dexamethasone (Dexamethasone 4 Mg Tab) 6 mg PO Q24H IAN Last Admin: 08/20/21 15:25 Dose: 6 mg Documented by: Enoxaparin Sodium (Enoxaparin 100 Mg/1 Ml Syringe) 100 mg SUBCUT Q12H [facility] Last Admin: 08/21/21 08:38 Dose: 100 mg Documented by: Guaifenesin/Dextromethorphan (Guaifenesin/Dextromethorphan 100-10 Mg/5 Ml Soln 10 Ml Cup) 10 ml PO Q4H PRN PRN Reason: Cough Last Admin: 08/20/21 20:45 Dose: 10 ml Documented by: Lorazepam (Lorazepam 1 Mg Tab) 1 mg PO Q8H PRN PRN Reason: Anxiety Last Admin: 08/20/21 20:45 Dose: 1 mg Documented by: Melatonin (Melatonin 3 Mg Tab) 6 mg PO BEDTIME PRN PRN Reason: Insomnia Last Admin: 08/20/21 20:46 Dose: 6 mg Documented by: Pantoprazole Sodium (Pantoprazole 40 Mg Tab.Cr) 40 mg PO BEDTIME IAN Last Admin: 08/20/21 20:45 Dose: 40 mg Documented by: Promethazine HCl/Codeine (Codeine/Promethazine 10-6.25 Mg/5 Ml Syrup 5 Ml Ud Syringe) 5 ml PO Q6HR IAN Last Admin: 08/21/21 11:49 Dose: Not Given Documented by: Discontinued Medications Albuterol/Ipratropium (Albuterol/Ipratropium 3.0-0.5 Mg/3 Ml Neb Soln) 3 ml NEB ONETIME ONE Stop: 08/11/21 13:27 Last Admin: 08/11/21 14:00 Dose: 3 ml Documented by: Dexamethasone (Dexamethasone 10 Mg/Ml Sdv) 10 mg IVPUSH ONETIME ONE Stop: 08/11/21 16:21 Last Admin: 08/11/21 16:34 Dose: 10 mg Documented by: Enoxaparin Sodium (Enoxaparin 40 Mg/0.4 Ml Syringe) 40 mg SUBCUT Q24H IAN Last Admin: 08/14/21 19:48 Dose: 40 mg Documented by: Heparin Sodium (Porcine) (Heparin Sodium 5,000 Units/Ml Vial) 7,200 units IVPUSH .BOLUS ONE Stop: 08/15/21 12:46 Last Admin: 08/15/21 12:42 Dose: 7,200 units Documented by: Heparin Sodium (Porcine) (Heparin Sodium 5,000 Units/Ml Vial) 1,500 units IVPUSH .BOLUS ONE Stop: 08/16/21 12:36 Last Admin: 08/16/21 12:49 Dose: 1,500 units Documented by: Sodium Chloride (Normal Saline) 1,000 mls @ 1,000 mls/hr IV .Bolus ONE Stop: 08/11/21 14:32 Last Admin: 08/11/21 13:59 Dose: 1,000 mls/hr Documented by: Remdesivir 200 mg/ Sodium (Chloride) 250 mls @ 250 mls/hr IV ONETIME ONE Stop: 08/11/21 16:39 Last Admin: 08/11/21 21:19 Dose: Not Given Documented by: Remdesivir 200 mg/ Sodium (Chloride) 250 mls @ 250 mls/hr IV ONETIME ONE Stop: 08/11/21 17:59 Last Admin: 08/11/21 19:53 Dose: 250 mls/hr Documented by: Remdesivir 100 mg/ Sodium (Chloride) 100 mls @ 100 mls/hr IV Q24H IAN Stop: 08/15/21 17:59 Last Admin: 08/15/21 16:35 Dose: 100 mls/hr Documented by: Heparin Sodium/Sodium Chloride (Heparin 25,000 Units In 1/2 Ns 500 Ml) 500 mls @ 26.671 mls/hr IV TITRATE IAN; Protocol Stop: 08/18/21 09:30 Last Titration: 08/18/21 09:40 Dose: 0 units/kg/hr, 0 mls/hr Documented by: Iopamidol (Iopamidol 755 Mg/Ml 500 Ml Multipack Bottle) 100 ml IVPUSH ONETIME ONE Stop: 08/15/21 10:46 Last Admin: 08/15/21 10:45 Dose: 100 ml Documented by: Potassium Chloride (Potassium Chloride 20 Meq Tab.Er) 40 meq PO ONETIME ONE Stop: 08/11/21 18:57 Last Admin: 08/11/21 19:51 Dose: 40 meq Documented by: - Exam General: Alert, Oriented, Cooperative HEENT: Mucous Membr. Moist/Glide Neck: Trachea Midline Lungs: Rhonchi. No: Wheezing Cardiovascular: Regular Rate, Regular Rhythm GI/Abdominal Exam: Normal Bowel Sounds, Soft, Non-Tender - Patient Data Lab Results Last 24 hrs: Laboratory Results - last 24 hr 08/21/21 08/21/21 Range/Units 05:27 05:27 WBC 11.29 H (4.0-11.0) K/uL RBC 4.54 (4.50-5.90) M/uL Hgb 13.5 (13.0-17.0) g/dL Hct 38.2 (38.0-50.0) % MCV 84.1 (80.0-98.0) fL MCH 29.7 (27.0-32.0) pg MCHC 35.3 (31.0-37.0) g/dL RDW Std Deviation 38.8 (28.0-62.0) fl RDW Coeff of Mason 13 (11.0-15.0) % Plt Count 255 (150-400) K/uL MPV 8.80 (7.40-12.00) fL Neut % (Auto) 87.7 H (48.0-80.0) % Lymph % (Auto) 8.0 L (16.0-40.0) % Brantley % (Auto) 3.7 (0.0-15.0) % Eos % (Auto) 0.5 (0.0-7.0) % Baso % (Auto) 0.1 (0.0-1.5) % Neut # (Auto) 9.9 H (1.4-5.7) K/uL Lymph # (Auto) 0.9 (0.6-2.4) K/uL Brantley # (Auto) 0.4 (0.0-0.8) K/uL Eos # (Auto) 0.1 (0.0-0.7) K/uL Baso # (Auto) 0.0 (0.0-0.1) K/uL Nucleated RBC % 0.0 /100WBC Nucleated RBCs # 0 K/uL Sodium 138 (136-148) mmol/L Potassium 4.2 (3.5-5.1) mmol/L Chloride 101 (98-107) mmol/L Carbon Dioxide 28.4 (21.0-32.0) mmol/L BUN 16 (7.0-18.0) mg/dL Creatinine 0.9 (0.8-1.3) mg/dL Est Cr Clr Drug Dosing 107.02 mL/min Estimated GFR (MDRD) > 60.0 ml/min Glucose 138 H (74-106) mg/dL Calcium 8.0 L (8.5-10.1) mg/dL Total Bilirubin 0.6 (0.2-1.0) mg/dL AST 32 (15-37) IU/L ALT 54 (14-63) IU/L Alkaline Phosphatase 86 (46-116) U/L Total Protein 6.5 (6.4-8.2) g/dL Albumin 2.4 L (3.4-5.0) g/dL Globulin 4.1 H (2.6-4.0) g/dL Albumin/Globulin Ratio 0.6 L (0.9-1.6) Result Diagrams: 08/21/21 05:27 08/21/21 05:27 Sepsis Event Note - Evaluation Sepsis Screening Result: No Definite Risk - Focused Exam Vital Signs: Vital Signs Temp Resp BP Pulse Ox 08/21/21 11:00 20 92 L 08/21/21 10:00 20 95/68 90 L 08/21/21 09:00 18 94/66 91 L 08/21/21 08:00 96.8 F L 17 97/55 L 97 08/21/21 07:00 15 107/78 98 08/21/21 06:00 21 H 105/65 97 08/21/21 05:00 20 98/59 L 95 08/21/21 04:00 97.0 F 16 90/60 95 08/21/21 03:00 19 91/60 97 08/21/21 02:00 10 L 91/61 93 L 08/21/21 01:00 25 H 92/56 L 98 - Problem List & Annotations (1) Pulmonary embolism SNOMED Code(s): 02715773 Code(s): I26.99 - OTHER PULMONARY EMBOLISM WITHOUT ACUTE COR PULMONALE Status: Acute Current Visit: Yes (2) Hypoxia SNOMED Code(s): 817640729 Code(s): R09.02 - HYPOXEMIA Status: Acute Current Visit: Yes (3) COVID-19 virus infection SNOMED Code(s): 921107180 Code(s): U07.1 - COVID-19 Status: Acute Current Visit: No - Problem List Review Problem List Initiated/Reviewed/Updated: Yes - Assessment Assessment:: 1. COVID-19 pneumonia -The patient is now on high flow, 10 L of the wall and tolerating it well. We will continue to wean oxygen as appropriate. If this trend continues the patient will be able to go home in the next few days. In the meantime we will continue the treatment below: -Continue dexamethasone/baricitinib per oral route -Ativan is on board for when the patient is anxious -For shortness of breath, continue Combivent tx -For cough/congestion, continue Tessalon Perles 2. Bilateral pulmonary emboli -Continue Lovenox subcutaneously <Varun Duarte - Last Filed: 08/21/21 13:04> - Patient Data Vitals - Most Recent: Last Vital Signs Temp 96.8 F L 08/21/21 08:00 Pulse 69 08/15/21 18:56 Resp 20 08/21/21 11:00 BP 95/68 08/21/21 10:00 Pulse Ox 92 L 08/21/21 11:00 I&O - Last 24 Hours: Intake & Output 1108/21/21 08/21/21 22:59 06:59 14:59 Intake Total 2360 1520 Output Total 1350 1625 Balance 1010 -105 Lab Results Last 24 Hours: Laboratory Results - last 24 hr 08/21/21 08/21/21 Range/Units 05:27 05:27 WBC 11.29 H (4.0-11.0) K/uL RBC 4.54 (4.50-5.90) M/uL Hgb 13.5 (13.0-17.0) g/dL Hct 38.2 (38.0-50.0) % MCV 84.1 (80.0-98.0) fL MCH 29.7 (27.0-32.0) pg MCHC 35.3 (31.0-37.0) g/dL RDW Std Deviation 38.8 (28.0-62.0) fl RDW Coeff of Mason 13 (11.0-15.0) % Plt Count 255 (150-400) K/uL MPV 8.80 (7.40-12.00) fL Neut % (Auto) 87.7 H (48.0-80.0) % Lymph % (Auto) 8.0 L (16.0-40.0) % Brantley % (Auto) 3.7 (0.0-15.0) % Eos % (Auto) 0.5 (0.0-7.0) % Baso % (Auto) 0.1 (0.0-1.5) % Neut # (Auto) 9.9 H (1.4-5.7) K/uL Lymph # (Auto) 0.9 (0.6-2.4) K/uL Brantley # (Auto) 0.4 (0.0-0.8) K/uL Eos # (Auto) 0.1 (0.0-0.7) K/uL Baso # (Auto) 0.0 (0.0-0.1) K/uL Nucleated RBC % 0.0 /100WBC Nucleated RBCs # 0 K/uL Sodium 138 (136-148) mmol/L Potassium 4.2 (3.5-5.1) mmol/L Chloride 101 (98-107) mmol/L Carbon Dioxide 28.4 (21.0-32.0) mmol/L BUN 16 (7.0-18.0) mg/dL Creatinine 0.9 (0.8-1.3) mg/dL Est Cr Clr Drug Dosing 107.02 mL/min Estimated GFR (MDRD) > 60.0 ml/min Glucose 138 H (74-106) mg/dL Calcium 8.0 L (8.5-10.1) mg/dL Total Bilirubin 0.6 (0.2-1.0) mg/dL AST 32 (15-37) IU/L ALT 54 (14-63) IU/L Alkaline Phosphatase 86 (46-116) U/L Total Protein 6.5 (6.4-8.2) g/dL Albumin 2.4 L (3.4-5.0) g/dL Globulin 4.1 H (2.6-4.0) g/dL Albumin/Globulin Ratio 0.6 L (0.9-1.6) Med Orders - Current: Current Medications Albuterol/Ipratropium (Albuterol/Ipratropium 4 Gm Inhalation [place]) 0 gm INH Q4H PRN PRN Reason: Dyspnea Last Admin: 08/20/21 09:10 Dose: 1 puff Documented by: Baricitinib (Baricitinib 2 Mg Tab) 4 mg PO Q24H I[facility] Last Admin: 08/21/21 11:39 Dose: 4 mg Documented by: Benzonatate (Benzonatate 100 Mg Cap) 100 mg PO Q6H PRN PRN Reason: Cough Last Admin: 08/20/21 09:09 Dose: 100 mg Documented by: Dexamethasone (Dexamethasone 4 Mg Tab) 6 mg PO Q24H IAN Last Admin: 08/20/21 15:25 Dose: 6 mg Documented by: Enoxaparin Sodium (Enoxaparin 100 Mg/1 Ml Syringe) 100 mg SUBCUT Q12H I[facility] Last Admin: 08/21/21 08:38 Dose: 100 mg Documented by: Guaifenesin/Dextromethorphan (Guaifenesin/Dextromethorphan 100-10 Mg/5 Ml Soln 10 Ml Cup) 10 ml PO Q4H PRN PRN Reason: Cough Last Admin: 08/20/21 20:45 Dose: 10 ml Documented by: Lorazepam (Lorazepam 1 Mg Tab) 1 mg PO Q8H PRN PRN Reason: Anxiety Last Admin: 08/20/21 20:45 Dose: 1 mg Documented by: Melatonin (Melatonin 3 Mg Tab) 6 mg PO BEDTIME PRN PRN Reason: Insomnia Last Admin: 08/20/21 20:46 Dose: 6 mg Documented by: Pantoprazole Sodium (Pantoprazole 40 Mg Tab.Cr) 40 mg PO BEDTIME IAN Last Admin: 08/20/21 20:45 Dose: 40 mg Documented by: Promethazine HCl/Codeine (Codeine/Promethazine 10-6.25 Mg/5 Ml Syrup 5 Ml Ud Syringe) 5 ml PO Q6HR [facility] Last Admin: 08/21/21 11:49 Dose: Not Given Documented by: Discontinued Medications Albuterol/Ipratropium (Albuterol/Ipratropium 3.0-0.5 Mg/3 Ml Neb Soln) 3 ml NEB ONETIME ONE Stop: 08/11/21 13:27 Last Admin: 08/11/21 14:00 Dose: 3 ml Documented by: Dexamethasone (Dexamethasone 10 Mg/Ml Sdv) 10 mg IVPUSH ONETIME ONE Stop: 08/11/21 16:21 Last Admin: 08/11/21 16:34 Dose: 10 mg Documented by: Enoxaparin Sodium (Enoxaparin 40 Mg/0.4 Ml Syringe) 40 mg SUBCUT Q24H [facility] Last Admin: 08/14/21 19:48 Dose: 40 mg Documented by: Heparin Sodium (Porcine) (Heparin Sodium 5,000 Units/Ml Vial) 7,200 units IVPUSH .BOLUS ONE Stop: 08/15/21 12:46 Last Admin: 08/15/21 12:42 Dose: 7,200 units Documented by: Heparin Sodium (Porcine) (Heparin Sodium 5,000 Units/Ml Vial) 1,500 units IV PUSH .BOLUS ONE Stop: 08/16/21 12:36 Last Admin: 08/16/21 12:49 Dose: 1,500 units Documented by: Sodium Chloride (Normal Saline) 1,000 mls @ 1,000 mls/hr IV .Bolus ONE Stop: 08/11/21 14:32 Last Admin: 08/11/21 13:59 Dose: 1,000 mls/hr Documented by: Remdesivir 200 mg/ Sodium (Chloride) 250 mls @ 250 mls/hr IV ONETIME ONE Stop: 08/11/21 16:39 Last Admin: 08/11/21 21:19 Dose: Not Given Documented by: Remdesivir 200 mg/ Sodium (Chloride) 250 mls @ 250 mls/hr IV ONETIME ONE Stop: 08/11/21 17:59 Last Admin: 08/11/21 19:53 Dose: 250 mls/hr Documented by: Remdesivir 100 mg/ Sodium (Chloride) 100 mls @ 100 mls/hr IV Q24H IAN Stop: 08/15/21 17:59 Last Admin: 08/15/21 16:35 Dose: 100 mls/hr Documented by: Heparin Sodium/Sodium Chloride (Heparin 25,000 Units In 1/2 Ns 500 Ml) 500 mls @ 26.671 mls/hr IV TITRATE IAN; Protocol Stop: 08/18/21 09:30 Last Titration: 08/18/21 09:40 Dose: 0 units/kg/hr, 0 mls/hr Documented by: Iopamidol (Iopamidol 755 Mg/Ml 500 Ml Multipack Bottle) 100 ml IVPUSH ONETIME ONE Stop: 08/15/21 10:46 Last Admin: 08/15/21 10:45 Dose: 100 ml Documented by: Potassium Chloride (Potassium Chloride 20 Meq Tab.Er) 40 meq PO ONETIME ONE Stop: 08/11/21 18:57 Last Admin: 08/11/21 19:51 Dose: 40 meq Documented by: - Patient Data Lab Results Last 24 hrs: Laboratory Results - last 24 hr 08/21/21 08/21/21 Range/Units 05:27 05:27 WBC 11.29 H (4.0-11.0) K/uL RBC 4.54 (4.50-5.90) M/uL Hgb 13.5 (13.0-17.0) g/dL Hct 38.2 (38.0-50.0) % MCV 84.1 (80.0-98.0) fL MCH 29.7 (27.0-32.0) pg MCHC 35.3 (31.0-37.0) g/dL RDW Std Deviation 38.8 (28.0-62.0) fl RDW Coeff of Mason 13 (11.0-15.0) % Plt Count 255 (150-400) K/uL MPV 8.80 (7.40-12.00) fL Neut % (Auto) 87.7 H (48.0-80.0) % Lymph % (Auto) 8.0 L (16.0-40.0) % Brantley % (Auto) 3.7 (0.0-15.0) % Eos % (Auto) 0.5 (0.0-7.0) % Baso % (Auto) 0.1 (0.0-1.5) % Neut # (Auto) 9.9 H (1.4-5.7) K/uL Lymph # (Auto) 0.9 (0.6-2.4) K/uL Brantley # (Auto) 0.4 (0.0-0.8) K/uL Eos # (Auto) 0.1 (0.0-0.7) K/uL Baso # (Auto) 0.0 (0.0-0.1) K/uL Nucleated RBC % 0.0 /100WBC Nucleated RBCs # 0 K/uL Sodium 138 (136-148) mmol/L Potassium 4.2 (3.5-5.1) mmol/L Chloride 101 (98-107) mmol/L Carbon Dioxide 28.4 (21.0-32.0) mmol/L BUN 16 (7.0-18.0) mg/dL Creatinine 0.9 (0.8-1.3) mg/dL Est Cr Clr Drug Dosing 107.02 mL/min Estimated GFR (MDRD) > 60.0 ml/min Glucose 138 H (74-106) mg/dL Calcium 8.0 L (8.5-10.1) mg/dL Total Bilirubin 0.6 (0.2-1.0) mg/dL AST 32 (15-37) IU/L ALT 54 (14-63) IU/L Alkaline Phosphatase 86 (46-116) U/L Total Protein 6.5 (6.4-8.2) g/dL Albumin 2.4 L (3.4-5.0) g/dL Globulin 4.1 H (2.6-4.0) g/dL Albumin/Globulin Ratio 0.6 L (0.9-1.6) Result Diagrams: 08/21/21 05:27 08/21/21 05:27 Sepsis Event Note - Focused Exam Vital Signs: Vital Signs Temp Resp BP Pulse Ox 08/21/21 11:00 20 92 L 08/21/21 10:00 20 95/68 90 L 08/21/21 09:00 18 94/66 91 L 08/21/21 08:00 96.8 F L 17 97/55 L 97 08/21/21 07:00 15 107/78 98 08/21/21 06:00 21 H 105/65 97 08/21/21 05:00 20 98/59 L 95 08/21/21 04:00 97.0 F 16 90/60 95 08/21/21 03:00 19 91/60 97 08/21/21 02:00 10 L 91/61 93 L 08/21/21 01:00 25 H 92/56 L 98 - Problem List & Annotations (1) Acute hypoxemic respiratory failure due to COVID-19 SNOMED Code(s): 639190028 Code(s): U07.1 - COVID-19; J96.01 - ACUTE RESPIRATORY FAILURE WITH HYPOXIA Status: Acute Current Visit: Yes (2) Pulmonary embolism SNOMED Code(s): 70127478 Code(s): I26.99 - OTHER PULMONARY EMBOLISM WITHOUT ACUTE COR PULMONALE Status: Acute Current Visit: Yes - Problem List Review Problem List Initiated/Reviewed/Updated: Yes - My Orders Last 24 Hours: My Active Orders 08/21/21 10:30 Transfer Patient (Change bed) [ADT] Routine Overnight Pulse Oximetry [RC] Click to Edit Pulse Oximetry Continuous Monitoring [OM.PC] Routine 08/21/21 13:00 Vital Signs [RC] Q4H - Assessment Assessment:: S: Pt is now down to 5L NC today. He wants to go home tomorrow. O: AAOX 3 . In no distress. Sitting in a chair. Exam CVS: S1S2 appreciated. RRR lungs: some fine dry crackles in the right lungs. No wheezes ext: no clubbing, cyanosis or edema neuro: no focal deficits. psych: stable mood and affect. Impression: Acute respiratory failure due to covid 19 pneumonia- much improved. continue with Decadron and baricitinib. Anticoagulation. Continue to wean down oxygen P.E On lovenox BID likely can go home in the next 1-2 days.
[2021-08-21] MEDS: Dexamethasone 4 MG Tab PO SCH (15:24)
[2021-08-21] MEDS: Pantoprazole 40 MG Tab.CR PO SCH (20:49)
[2021-08-21] MEDS: LORazepam 1 MG Tab PO PRN (20:56)
[2021-08-21] MEDS: Melatonin 3 MG Tab PO PRN (20:56)
[2021-08-22] MEDS: Codeine/Promethazine 10-6.25 MG/5 ML Syrup 5 ML UD Syringe PO SCH ×3 (00:03→11:48)
[2021-08-22] MEDS: guaiFENesin/Dextromethorphan 100-10 MG/5 ML Soln 10 ML Cup PO PRN (09:51)
[2021-08-22] MEDS: Enoxaparin 100 MG/1 ML Syringe SUBCUT SCH (09:51)
== END 2021-08-22 14:13 | disposition home or self-care (01) | DRG 137 ==
LOC: MW.ED 12:48 → MW.MS 16:39 → MW.ED 18:08 → MW.ICU 08-15 11:57 → MW.MS 08-21 12:35
PROVIDERS: ADMIT Internal Medicine; ATTEND Internal Medicine
PROC: XW033E5 Introduction of Remdesivir Anti-infective into Peripheral Vein, Percutaneous Approach, New Technology Group 5 (ICD-10-PCS; principal; 2021-08-11)
PROC: 3E0333Z Introduction of Anti-inflammatory into Peripheral Vein, Percutaneous Approach (ICD-10-PCS; 2021-08-11)
PROC: 3E0DX3Z Introduction of Anti-inflammatory into Mouth and Pharynx, External Approach (ICD-10-PCS; 2021-08-12)
PROC: XW0DXM6 Introduction of Baricitinib into Mouth and Pharynx, External Approach, New Technology Group 6 (ICD-10-PCS; 2021-08-15)
PROC: 5A0955A Assistance with Respiratory Ventilation, Greater than 96 Consecutive Hours, High Flow/Velocity Cannula (ICD-10-PCS; 2021-08-15)
DX: U07.1 COVID-19 (principal); I26.99 Other pulmonary embolism without acute cor pulmonale; J12.82 Pneumonia due to coronavirus disease 2019; J80 Acute respiratory distress syndrome; Z88.0 Allergy status to penicillin; Z79.52 Long term (current) use of systemic steroids
CPT/HCPCS: 36415; 71275; 71275-26; 80053; 84484; 85025; 85730; 86140; 93005; 93306; 96374; 99285-25; A9270-GY; J1100; J1644; J1650; J7030; J7050; J7620-GY; J8540; Q9967